=== PATIENT | male | born 1945 | race Caucasian/White ===

== ENCOUNTER → 2025-03-06 | Outpatient (CLI) | payer MEDICARE, SELFPAY ==
--- NOTE | 2025-03-06 14:15 | RAD_ITS ---
PROCEDURE: ORBITS FOR FOREIGN BODY 03/06/2025 REASON FOR EXAM: HX: METAL REMOVAL TO EYES TECHNIQUE: 2 view(s) of the orbits COMPARISON: None FINDINGS: Bones: Unremarkable Sinuses: Unremarkable Additional findings: No radiopaque foreign body seen. RAD/Orbits for Foreign Body IMPRESSION: No radiopaque foreign body is seen. Reading Location: [place] [id number]
--- NOTE | 2025-03-06 14:29 | MRI_ITS ---
PROCEDURE: ORBIT FACE NECK W/WO CONTRAST 03/06/2025 REASON FOR EXAM: OPTIC NERVE ATROPHY LEFT EYE Abnormal eye exam TECHNIQUE: Routine brain MRI without and with intravenous contrast. Dedicated sequences of the orbits also obtained. Multiplanar and multisequence images were obtained. CONTRAST: Clariscan VOLUME: 20 mL IV COMPARISON: None FINDINGS: Brain: Mild cerebral volume loss and chronic periventricular white matter disease. Bilateral mesial temporal lobe cortex and posterior limbic mild FLAIR hyperintensity. Diffusion: No restricted diffusion to suggest acute infarct. Ventricles: Consistent with the overall degree of cerebral volume loss. Major Intracranial Vessels: Major flow voids are maintained. Sinuses: Minimal mucosal thickening. Mastoids: Clear. Bilateral ocular lens replacements. The left optic nerve is mildly smaller in caliber compared to the right. Symmetric appearance of the extra-ocular muscles. No abnormal enhancement. 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 Mild cortical FLAIR hyperintensity in both mesial temporal lobes and posterior limbic areas without associated diffusion weighted hyperintensity or enhancement. Differential diagnosis includes autoimmune ence phalitis, neurosarcoidosis, and steroid responsive encephalopathy among others based on clinical scenario. Reading [facility]
== END | disposition home or self-care (01) ==
PROVIDERS: Referring Provider Ophthalmology; Visit Provider Ophthalmology
DX: H47.20 Unspecified optic atrophy (principal)
CPT/HCPCS: 70030; 70543; A9575

== ENCOUNTER 2025-06-09 16:46 | Emergency (ER) | payer MEDICARE, SELFPAY ==
[2025-06-09] VITALS (7 sets, daily range): BP systolic 125–160; BP diastolic 67–92; PULSE 70–82; RESP 16–20; TEMP 36.1–37.5; O2SAT 96–100; BMI 35.3
--- NOTE | 2025-06-09 17:09 | EX.ED.UPPERE ---
HPI History of Present Illness HPI Narrative: 79-year-old male history of diabetes. [id number]-[id number]-[id number]. Atraumatic right elbow pain since last progressively getting worse. Swollen and red. Tender. Hurts to do range of motion. Denies any prior surgery to this elbow. Denies any recent fall or trauma. No prior history of elbow pain like this before. Chief Complaint: Upper Extremity Injury Informant: patient and spouse/S.O. Onset/Context/Timing Onset: Days Context: Gradual Onset Timing: Continuous Quality of Pain: Sharp Current Severity: Moderate Maximum Severity: Moderate Associated Symptoms Associated Symptoms: Negative for Parasthesia, Weakness or Loss of Funtion Narrative Narrative: 79-year-old male atraumatic right elbow pain and swelling. History of diabetes. Yvnfa-xhhg-rfahaufi. No prior surgery to the elbow. Prior similar symptoms: No Recent Illness/Hospitalization: No PFSH PFSH Home Medications ?Medication ?Instructions ?Recorded ?Last Taken ?Type amino ac-vit [id number] See Rx Instructions PO .COMPLEX 10/29/24 Unknown History tablet insulin aspart U-100 100 unit/mL 1 sliding scale dose subcut 10/29/24 Unknown History (3 mL) subcutaneous pen (Novolog .COMPLEX FlexPen U-100 Insulin aspart) insulin glargine 100 unit/mL (3 35 unit subcut QPM 10/29/24 Unknown History mL) subcutaneous pen (Lantus Solostar U-100 Insulin) levothyroxine 88 mcg tablet 88 mcg PO QDAY 10/29/24 Unknown History lisinopril 10 mg tablet 10 mg PO QDAY 10/29/24 Unknown History saw palmetto 160 1 cap PO QDAY 10/29/24 Unknown History zh-Gvxbie-rsiglnmsr-beta yfilreanqx-[id number]-aijg capsule simvastatin 10 mg tablet 10 mg PO QHS 10/29/24 Unknown History Allergy/AdvReac Type Severity Reaction Status Date / Time No Known Allergies Allergy Verified 06/09/25 16:48 Family History Mother , Passed in 80's No problems noted. Father , 70's Heart disease Myocardial infarction CHF (congestive heart failure) Surgical History History of ankle surgery Social History household members: significant other current occupational status: retired Smoking Status: Never smoker alcohol intake: never caffeine: Yes (On avg 3 cups daily) Type: coffee EXAM Physical Exam Const Vital Signs: 06/09/25 16:47 06/09/25 16:55 Temperature 96.9 F L 96.9 F L Temperature Source Temporal Temporal Pulse Rate 73 73 Respiratory Rate 20 H 20 H Blood Pressure 125/75 H 125/75 H Blood Pressure Mean 91 91 Pulse Ox 99 99 Oxygen Delivery Method Room Air Room Air MDM MDM MDM Narrative Medical decision making narrative: 71-year-old male atraumatic right elbow pain and swelling concern for septic joint versus gout versus other etiologies. No history of trauma. X-ray and labs. Will consult orthopedics. Clean the patient's right elbow off with alcohol swabs and then iodine. I did a lateral approach to his elbow and was unable to obtain any fluid. He tolerated it well. He will be given some morphine for pain. I have orthopedics on page. Dr. Pearce of orthopedics came and evaluated the patient. He believes this is secondary to arthritis. He will follow him up in his office. Ice. Motrin for pain and inflammation. Follow-up with Dr. Castillo. Return if increasing pain, redness or fever. History & Record Review Discussion w/independent historian: Patient and Family Lab Data Attestation: I reviewed the patient's lab results. Lab results narrative: CBC shows a white 11.7. H&H 14 and 42. Platelets 257. Electrolytes show gap 12. BUN and creatinine 21 and 1. Uric acid is 4.7. CRP is 3.6 and sed rate is only 11. Right elbow x-ray shows no acute process. Radiography Diagnostic Testing: Right elbow x-ray, 4 views, interpreted by myself and the radiologist shows chronic changes. Arthritis. No fracture. No dislocation. Possible soft tissue swelling with small effusion. Discharge Plan Triage Chief Complaint: Upper Extremity Injury ED Provider: Doroteo Bermudez Dx/Rx/DC Orders Clinical Impression: Elbow pain, History of diabetes mellitus Instructions: ED Arthralgia, ED Osteoarthritis Prescriptions: No Action lisinopril 10 mg tablet 10 mg PO QDAY levothyroxine 88 mcg tablet 88 mcg PO QDAY simvastatin 10 mg tablet 10 mg PO QHS insulin glargine [Lantus Solostar U-100 Insulin] 100 unit/mL (3 mL) insulin pen 35 unit subcut QPM insulin aspart U-100 [Novolog FlexPen U-100 Insulin] 100 unit/mL (3 mL) insulin pen 1 sliding scale dose subcut .COMPLEX Rx Instructions: 1 sliding scale dose subcutaneously 10-20 Units after meals as needed; amino ac-vit [id number] Tablet See Rx Instructions PO .COMPLEX Rx Instructions: orally Force factor prostate daily; oin-Rjuvol-qwnhp-vmdkl-[id number]-qjtz [id number] mg capsule 1 cap PO QDAY Primary Care Provider: Estrella Flores Referrals: Erick Pearce DO [Med Staff - Active Staff] - As soon as possible Care Physician,No Primary [Non-Staff] - Activity Restrictions/Additional Instructions: Ice your elbow to decrease pain and swelling. Motrin for pain and swelling and Tylenol. Call and follow-up with the orthopedic physician Dr. Grace to have this reevaluated tomorrow or Tuesday. If it is getting a lot worse increasing pain increasing swelling increasing redness or fever just return to the emergency department. The orthopedic physician believes this is secondary to arthritis. Print Language: Luxembourger Disposition Disposition: Home, Self Care
--- NOTE | 2025-06-09 17:25 | RAD_ITS ---
PROCEDURE: ELBOW MIN 3 VIEWS 06/09/2025 REASON FOR EXAM: ATRAUMATIC RIGHT ELBOW PAIN TECHNIQUE: ELBOW MIN 3 VIEWS COMPARISON: None FINDINGS: There are scattered calcifications in the anterior elbow and a questionable small joint effusion. No definite evidence of a displaced fracture, though evaluation is limited due to patient positioning, particularly of the radial head. There is joint space narrowing throughout the elbow. Mild posterior soft tissue swelling. RAD/Elbow min 3 Views IMPRESSION: Limited exam due to patient positioning, without definite displaced fracture. There is a questionable joint effusion with soft tissue swelling. Scattered calcifications may be degenerative or posttraumatic . Consider CT if there is concern for an acute osseous abnormality. Reading Location: [facility]
--- OUTSIDE RECORDS SUMMARY | 2025-06-09 17:39 | XMS RPT_ITS | CCD ---
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 Work Phone: [facility] Comment on above: historic 12-13-2024 10:31-0500 Diastolic blood pressure 84 mm[Hg] Donte Paulino MD Work Phone: [facility] 12-13-2024 10:31-0500 Heart rate 82 /min Donte Paulino MD Work Phone: [facility] 12-13-2024 10:31-0500 SaO2% (BldA) [Mass fraction] 98 % Donte Paulino MD Work Phone: [facility] 12-13-2024 10:31-0500 Systolic blood pressure 136 mm[Hg] Donte Paulino MD Work Phone: [facility] Encounters Encounter Date Encounter Type Care Provider Facility Start: 04-12-2025 ambulatory KAM ARIAS Facility:[facility] Start: 03-06-2025 End: 03-06-2025 ambulatory Angelika Gilman Facility:[facility] Start: 01-09-2025 End: 01-10-2025 Telephone encounter Donte Paulino MD Work Phone: Neurology Comment on above: Medication Problem Start: 12-24-2024 End: 12-24-2024 ambulatory HILARIO RIDDLE Facility:[facility] Start: 12-24-2024 End: 12-24-2024 Patient encounter procedure Hilario Riddle Work Phone: Podiatry Comment on above: Diabetic polyneuropa thy associated with type 2 diabetes mellitus (HCC) (Primary Dx); Hallux valgus of right foot; Callus of foot Start: 12-13-2024 End: 12-13-2024 ambulatory KAM ARIAS Facility:[facility] Start: 12-13-2024 End: 12-13-2024 Patient encounter procedure Donte Paulino MD Work Phone: Neurology Comment on above: Essential tremor (Pr imary Dx) OPENED IN ERROR (Danitza rian Dx) Start: 10-29-2024 ambulatory Erick Elizalde y:BMS Plan of Treatment Date Care Activity Detail Author Start: 12-24-2025 End: 12-24-2025 Patient encounter procedure 12/24/2025 2:30 PM EST Office Visit Podiatry [address] [place], [place] [phone] Hilario Riddle [address] [address] 1 year follow uo Podiatry Comment on above: 1 year follow uo Start: 06-12-2025 End: 06-12-2025 Patient encounter procedure 06/12/2025 12:00 PM EDT Office Visit Neurology [address] [facility] [place] [id number] Donte Paulino MD [address] [facility] [address] [place] [id number] 6 mo f/u Neurology Comment on above: 6 mo f/u Start: 03-14-2025 End: 03-14-2025 Patient encounter procedure 03/14/2025 12:30 PM EDT Office Visit Neurology [address] [address] [place] [id number] Donte Paulino MD [address] [facility] [address] [place] [id number] 3 mo f/u Neurology Comment on above: 3 mo f/u Start: 12-24-2024 End: 12-24-2024 Patient encounter procedure 12/24/2024 3:00 PM EST Office Visit Podiatry [address] [place], [place] [phone] Hilario Riddle [address] [address] New diabetic nail concern Podiatry Comment on above: New diabetic nail co ncern Start: 11-21-2024 Advance Directive Discussion Advance Directive Discussion [facility] Start: 07-22-2024 Covid-19 Vaccine ( season) Covid-19 Vaccine () [facility] Start: 07-22-2024 Influenza vaccination Influenza Vacc ine (#1) [facility] Start: 2021 RSV Vaccine (1 - 1-d ose 75+ series) RSV Vaccine (1 - 1-dose 75+ series) [facility] Start: 1996 Pneumococcal Vaccine : 50+ (1 of 1 - PCV) Pneumococcal Vaccine: 50+ (1 of 1 - PCV) [facility] Start: 1996 Shingrix Vaccine (1 of 2) Shingrix V accine (1 of 2) [facility] Start: 1991 Diabetes Screening Diabetes Screenin g [facility] Start: 1965 Urine microalbumin profile DTaP,Tdap,Td Vaccine (1 - Tdap) [facility] Start: 1964 Anxiety Screening Anxiety Screening [facility] Start: 1964 Depression Screening Depression Scre [facility] Start: 1964 Hepatitis C screening Hepatitis C Vt tierney [facility] Payers Date Payer Category Payer Medicare [employer]NA MEDICARE HU[employer]NA GOLD PLUS [id number] 2024-Present [id number] [place] [id number] O [id number] 2024 Medicare (Managed Care) [employer] G OLD PLUS [id number] 2024 Private Health Insurance [id number] 2024 Private Health Insurance [id number] 2024 Self-pay Unknown [id number] Unknown [id number] Social History Date Type Detail Facility Start: 12-13-2024 Tobacco smoking stat [facility] Never smoked tobacco [facility] Start: 12-13-2024 Tobacco use and exposure Smoke less tobacco non-user [facility] Start: 12-13-2024 Alcoholic beverage intake Life time non-drinker (finding) [facility] Start: 12-13-2024 End: 12-24-2024 History of Social function [facility] Start: 12-13-2024 End: 12-24-2024 Tobacco use panel [facility] National Score (1-10 0), lower number is lower risk 72 [facility] Start: 1945 Sex assigned at Not on file [facility] Medical Equipment Procedure Code Equipment Code Equipment Origin al Text Equipment Identifier Dates Start: 08-16-2024 Clinical Notes 12-13-2024 to 01-10-2025 Telephone Encounter - Donte Paulino MD - 01/10/2025 3:48 PM ESTTelephone Encounter - Donte Paulino MD - 01/10/2025 3:48 PM ESTTelephone Encounter - Lisa Reed - 01/09/2025 3:10 PM EST Note Date & Type Note Facility 01-10-2025 Telephone encounter Note No worries, can y ou try to get the records from his previous provider Dr. Ferrer regarding the injection protocol they used? That way can guide the amount / protocol we submit for authorization for. Thanks [facility] 01-10-2025 Miscellaneous Notes No worries, can y ou try to get the records from his previous provider Dr. Ferrer regarding the injection protocol they used? That way can guide the amount / protocol we submit for authorization for. Thanks Patient called stating Dr Paulino told him to try propranolol (INDERAL) 10 mg tablet instead of Botox injections in his neck for tremors. Patient states he had a reaction to the medication on day four of taking it. Patient states he had diarrhea and vomiting. Patient states he needs to stick with Botox. documented in this encounter [facility] 01-09-2025 Telephone encounter Note Patient called stating Dr Paulino told him to try propranolol (INDERAL) 10 mg tablet instead of Botox injections in his neck for tremors. Patient states he had a reaction to the medication on day four of taking it. Patient states he had diarrhea and vomiting. Patient states he needs to stick with Botox. [facility] 12-24-2024 Note HNO ID: [id number] Author: RISA BARRETT LPN Service: ? Author Type: LICENSED NURSE Type: Progress Notes Filed: 12/24/2024 18:01 Note Text: Per Jose Kerns was provided with powerstep gel inserts, size 11, and instructed/educated in its application, wear, and care. All questions were answered, and patient was able to demonstrate competence with the necessary skills to utilize the above equipment. Risa Barrett LPN [facility] 12-24-2024 History of Presen t illness Narrative Per Jose Kerns was provided with powerstep gel inserts, size 11, and instructed/educated in its application, wear, and care. All questions were answered, and patient was able to demonstrate competence with the necessary skills to utilize the above equipment. Risa Barrett LPN Initial Office Visit Subjective: This 79 year old male presents to clinic for diabetic foot check. Patient admits to being diabetic for 10-15 years now. Patient -B/T/N in feet at this time. Patient -pain in legs when walking. No other pedal complaints at this time. No change in medications or medical history since last visit. PAIN EVALUATION No data found in the last 1 encounters. No results found for: HBA1C PCP: EMILIANO Gonzalez PAST MEDICAL HISTORY Diagnosis Date Cancer (HCC) Diabetes (HCC) Hypothyroidism Current Outpatient Medications Medication Sig simvastatin (ZOCOR) 10 mg tablet Take 10 mg by mouth every evening. lisinopril (ZESTRIL) 10 mg tablet Take 1 tablet by mouth every afternoon. levothyroxine (SYNTHROID) 88 mcg tablet Take 1 tablet by mouth every afternoon. LANTUS SOLOSTAR U-100 INSULIN 100 unit/mL (3 mL) INJECT 30 UNITS BY SUBCUTANEOUS ROUTE ONCE DAILY NOVOLOG FLEXPEN U-100 INSULIN 100 unit/mL (3 mL) INJECT 14 UNITS SUBCUTANEOUSLY DAILY ONETOUCH DELICA PLUS LANCET 30 gauge USE TO TEST BLOOD SUGARS DAILY ACCU-CHEK SOFTCLIX LANCETS ONETOUCH ULTRA TEST test strip USE TO CHECK BLOOD SUGARS THREE TIMES DAILY REMINDER ENTER DIAGNOSIS CODE HERE:E 11.9 ONETOUCH ULTRA TEST test strip USE TO CHECK BLOOD SUGARS THREE TIMES DAILY REMINDER ENTER DIAGNOSIS CODE HERE:E 11.9 BD INSULIN SYRINGE ULTRA-FINE 1 mL 31 gauge x 04/05 propranolol ER (INDERAL LA) 60 mg 24 hr capsule Take 1 capsule by mouth once daily. (Patient not taking: Reported on 12/24/2024) propranolol (INDERAL) 10 mg tablet Take 1 pill twice a day for a week, then 2 pills twice a day for a week, then change to the 60 mg once a day pill thereafter. (Patient not taking: Reported on 12/24/2024) No current facility-administered medications for this visit. ALLERGIES No Known Allergies PAST SURGICAL HISTORY Procedure Laterality Date ANKLE RIGHT OP SURGERY No family history on file. Social History Tobacco Use Smoking status: Never Smokeless tobacco: Never Substance Use Topics Alcohol use: Never Drug use: Never REVIEW OF SYSTEMS GENERAL: Negative for Malaise, significant weight loss, fever RESPIRATORY: Negative for cough, wheezing and shortness of breath CARDIOVASCULAR: Negative for chest pain, leg swelling and palpitations GI: Negative for abdominal discomfort, blood in stools or black stools and change in bowel habits : Negative for dysuria, frequency and incontinence MUSCULOSKELETAL: Negative for joint pain or swelling, back pain, and muscle pain. SKIN: Negative for lesions, rash, and itching. HEMATOLOGY/LYMPHOLOGY Negative for prolonged bleeding, bruising easily, and swollen nodes. ENDOCRINE: Negative for cold or heat intolerance, polyuria, polydipsia and goiter. NEURO: negative The remainder of the review of systems is noncontributory. Objective: [facility] Constitutional: Pt is a well developed 79 year old male who is alert, oriented, cooperative and in no apparent distress. Eyes: Following during examination. No redness or drainage. Respiratory: RR normal and nonlabored. Even breathing. No evidence of distress. Psychology: Patient is engaged during conversation. Normal affect and mood. Does not appear depressed or anxious. Vasc: DP and PT pulses are palpable bilateral. CFT is less than 5 seconds bilateral. Skin temperature is warm to warm proximal to distal bilateral. There is no edema or varicosities noted. Hair growth present. Neuro: Protective sensation is intact to the foot and toes when tested with the 5.07 SWM bilateral. Vibratory sensation is decreased at the hallux bilateral. + Significant neurological defecits. Derm: Inspection and palpation performed. Nails 1-5 b/l are normal in length and thickness. Skin is of normal turgor and texture. Hyperkeratosis noted to right 1st metatarsal. NO ulcerations, scars, verruca or other lesions noted. Ortho: Ankle joint DF is full with the knee extended and full with knee flexed. No pain or crepitus noted. STJ, MTJ ROM are full and free of pain or crepitus. Muscle strength is 5/5 for dorsiflexors, plantarflexors, inverters, everters. Digital deformities include hallux valgus to right foot. Assessment: (E11.42) Diabetic polyneuropathy associated with type 2 diabetes mellitus (HCC) (primary encounter diagnosis) (M20.11) Hallux valgus of right foot (L84) Callus of foot Plan: 1. Patient was seen and evaluated. 2. Patient was instructed on the continued importance of diabetic foot care along with proper diet and keeping their blood sugar under control to prevent complications. Stressed the importance of avoiding barefoot walking, wearing good shoes and inspection of feet Instructions given both oral and written. 3. Patient has bunion to right foot. This does not cause him pain. Would recommend wider shoes, one that accommodate the bunion and perhaps help to provide offloading of the callus sub 1st metatarsal. Due to diabetic neuropathy, history of callus with bunion, I do feel that a diabetic shoe with multidensity inserts to help offload the first metatarsal callus is necessary. Diabetic shoes are necessary for chronic deformity of right foot. 4. Callus sub first metatarsal head right foot was reduced with dremmel. 5. F/u in 1 year or sooner if problems arise. Hilario Riddle DPM documented in this encounter [facility] 12-24-2024 Instructions Hilario Riddle - 12/24/2024 3:24 PM EST Powerstep Original Full length. Can purchase at [facility] [employer] and boots,shoes and more here in [place], [employer] in [place] or [place]. Also can find in [place] in [facility]. Powersteps can also be purchased online, starting around $45.00 If you have a metatarsal or dancer pad for your feet apply the pad directly to the insole so you can interchange between your shoes. Find a shoe with a removable insole and take this out and replace with your powerstep insole. Always bring powersteps with you when shopping for shoes so that you can make sure that everything fits well together Diabetes Foot Care Instructions When you have diabetes, proper foot care is very important. Poor foot care may lead to amputation of a foot or leg. As a person with diabetes, you are more vulnerable to foot problems, because diabetes can damage your nerves and reduce blood flow to your feet. Here are some diabetes foot care tips to follow: Wash and Dry Your Feet Daily Use mild soaps Use warm water Pat your skin dry; do not rub. Thoroughly dry your feet. After washing, use lotion on your feet to prevent cracking. Do not put lotion between your toes. Examine Your Feet Each Day Check the tops and bottoms of your feet. Have someone else look at your feet if you cannot see them. Check for dry, cracked skin. Look for blisters, cuts, scratches, or other sores. Check for redness, increased warmth, or tenderness when touching any area of your feet. Check for ingrown toenails, corns, and calluses. If you get a blister or sore from your shoes, do not pop it. Apply a bandage and wear a different pair of shoes. Take Care of Your Toenails Cut toenails after bathing, when they are soft. Cut toenails straight across and smooth with a nail file. Avoid cutting into the corners of toes. Do not cut cuticles. If you have neuropathy (or decreased sensation in your feet) a rolling down machine operator should always cut your toenails. Be Careful When Exercising Walk and exercise in comfortable shoes. Do not exercise when you have open sores on your feet. Protect Your Feet With Shoes and Socks Never go barefoot. Always protect your feet by wearing shoes or hard-soled slippers or footwear. Avoid shoes with high heels and pointed toes. Avoid shoes that expose your toes or heels (such as open-toed shoes or sandals). These types of shoes increase your risk for injury and potential infections. Try on new footwear with the type of socks you usually wear. Do not wear new shoes for more than an hour at a time. Change your socks daily. Look and feel inside your shoes before putting them on to make sure there are no foreign objects or rough areas. Avoid tight socks. Wear natural-fiber socks (cotton, wool, or a cotton-wool blend). Wear special shoes if your health care provider recommends them. Wear shoes/boots that will protect your feet from various weather conditions (cold, moisture, etc.). Make sure your shoes fit properly. If you have neuropathy (nerve damage), you may not notice that your shoes are too tight. Perform the footwear test described below. Footwear Test Use this simple test to see if your shoes fit correctly: Stand on a piece of paper. (Make sure you are standing and not sitting, because your foot changes shape when you stand.) Trace the outline of your foot. Trace the outline of your shoe. Compare the tracings: Is the shoe too narrow? Is your foot crammed into the shoe? The shoe should be at least 1/2 inch longer than your longest toe and as wide as your foot. Proper Shoe Choices The following types of shoes are best for people with diabetes Closed toes and heels Leather uppers without a seam inside At least 1/2 inch extra space at the end of your longest toe Inside of shoe should be soft with no rough areas Outer sole should be made of stiff material Shoes should be at least as wide as your feet Tips for Foot Care in Diabetes Don't wait to treat a minor foot problem if you have diabetes. Follow your health care provider's guidelines and first aid guidelines. Report foot injuries and infections to your health care provider immediately. Check water temperature with your elbow, not your foot. Do not use a heating pad on your feet. Do not cross your legs. Do not self-treat your corns, calluses, or other foot problems. Go to your health care provider or rolling down machine operator to treat these conditions. documented in this encounter [facility] 12-24-2024 Note HNO ID: [id number] Author: HILARIO RIDDLE, ? Service: ? Author Type: Physician Type: Progress Notes Filed: 12/24/2024 18:01 Note Text: Initial Office Visit Subjective: This 79 year old male presents to clinic for diabetic foot check. Patient admits to being diabetic for 10-15 years now. Patient -B/T/N in feet at this time. Patient -pain in legs when walking. No other pedal complaints at this time. No change in medications or medical history since last visit. PAIN EVALUATION No data found in the last 1 encounters. No results found for: HBA1C PCP: EMILIANO Gonzalez PAST MEDICAL HISTORY Diagnosis Date Cancer (HCC) Diabetes (HCC) Hypothyroidism Current Outpatient Medications Medication Sig simvastatin (ZOCOR) 10 mg tablet Take 10 mg by mouth every evening. lisinopril (ZESTRIL) 10 mg tablet Take 1 tablet by mouth every afternoon. levothyroxine (SYNTHROID) 88 mcg tablet Take 1 tablet by mouth every afternoon. LANTUS SOLOSTAR U-100 INSULIN 100 unit/mL (3 mL) INJECT 30 UNITS BY SUBCUTANEOUS ROUTE ONCE DAILY NOVOLOG FLEXPEN U-100 INSULIN 100 unit/mL (3 mL) INJECT 14 UNITS SUBCUTANEOUSLY DAILY ONETOUCH DELICA PLUS LANCET 30 gauge USE TO TEST BLOOD SUGARS DAILY ACCU-CHEK SOFTCLIX LANCETS ONETOUCH ULTRA TEST test strip USE TO CHECK BLOOD SUGARS THREE TIMES DAILY REMINDER ENTER DIAGNOSIS CODE HERE:E 11.9 ONETOUCH ULTRA TEST test strip USE TO CHECK BLOOD SUGARS THREE TIMES DAILY REMINDER ENTER DIAGNOSIS CODE HERE:E 11.9 BD INSULIN SYRINGE ULTRA-FINE 1 mL 31 gauge x 04/05 propranolol ER (INDERAL LA) 60 mg 24 hr capsule Take 1 capsule by mouth once daily. (Patient not taking: Reported on 12/24/2024) propranolol (INDERAL) 10 mg tablet Take 1 pill twice a day for a week, then 2 pills twice a day for a week, then change to the 60 mg once a day pill thereafter. (Patient not taking: Reported on 12/24/2024) No current facility-administered medications for this visit. ALLERGIES No Known Allergies PAST SURGICAL HISTORY Procedure Laterality Date ANKLE RIGHT OP SURGERY No family history on file. Social History Tobacco Use Smoking status: Never Smokeless tobacco: Never Substance Use Topics Alcohol use: Never Drug use: Never REVIEW OF SYSTEMS GENERAL: Negative for Malaise, significant weight loss, fever RESPIRATORY: Negative for cough, wheezing and shortness of breath CARDIOVASCULAR: Negative for chest pain, leg swelling and palpitations GI: Negative for abdominal discomfort, blood in stools or black stools and change in bowel habits : Negative for dysuria, frequency and incontinence MUSCULOSKELETAL: Negative for joint pain or swelling, back pain, and muscle pain. SKIN: Negative for lesions, rash, and itching. HEMATOLOGY/LYMPHOLOGY Negative for prolonged bleeding, bruising easily, and swollen nodes. ENDOCRINE: Negative for cold or heat intolerance, polyuria, polydipsia and goiter. NEURO: negative The remainder of the review of systems is noncontributory. Objective: [facility] Constitutional: Pt is a well developed 79 year old male who is alert, oriented, cooperative and in no apparent distress. Eyes: Following during examination. No redness or drainage. Respiratory: RR normal and nonlabored. Even breathing. No evidence of distress. Psychology: Patient is engaged during conversation. Normal affect and mood. Does not appear depressed or anxious. Vasc: DP and PT pulses are palpable bilateral. CFT is less than 5 seconds bilateral. Skin temperature is warm to warm proximal to distal bilateral. There is no edema or varicosities noted. Hair growth present. Neuro: Protective sensation is intact to the foot and toes when tested with the 5.07 SWM bilateral. Vibratory sensation is decreased at the hallux bilateral. + Significant neurological defecits. Derm: Inspection and palpation performed. Nails 1-5 b/l are normal in length and thickness. Skin is of normal turgor and texture. Hyperkeratosis noted to right 1st metatarsal. NO ulcerations, scars, verruca or other lesions noted. Ortho: Ankle joint DF is full with the knee extended and full with knee flexed. No pain or crepitus noted. STJ, MTJ ROM are full and free of pain or crepitus. Muscle strength is 5/5 for dorsiflexors, plantarflexors, inverters, everters. Digital deformities include hallux valgus to right foot. Assessment: (E11.42) Diabetic polyneuropathy associated with type 2 diabetes mellitus (HCC) (primary encounter diagnosis) (M20.11) Hallux valgus of right foot (L84) Callus of foot Plan: 1. Patient was seen and evaluated. 2. Patient was instructed on the continued importance of diabetic foot care along with proper diet and keeping their blood sugar under control to prevent complications. Stressed the importance of avoiding barefoot walking, wearing good shoes and inspection of feet Instructions given both oral and written. 3. P (more content not included)... [facility] 12-13-2024 Instructions Donte Paulino MD - 12/13/2024 10:55 AM EST Lets try a medicine called propranolol. Its a beta aayush, which can lower heart rate or blood pressure - watch out for light-headedness or fatigue if these get too low. We will start a low dose twice a day version and then change to a long-acting version after a couple weeks Week 1: Take one 10 mg pill twice a day Week 2: Take 2 pills twice a day Week 3 and on: Take one 60 mg long-acting pill once a day Send me a message after about 6 weeks to see how the propranolol is going - if not benefit and no side effects we coud increase to two of the 60 mg pills to see if that gets you benefit. By that time we should have the Botox records in order to submit for authorization. documented in this encounter [facility] 12-13-2024 Note HNO ID: [id number] Author: DONTE PAULINO MD Service: ? Author Type: Physician Type: Progress Notes Filed: 12/13/2024 11:49 Note Text: NEW PATIENT EVALUATION Subjective HPI Jose Enriquez is a 79 year old right-handed male who presents for evaluation of head tremor. EMILIANO Gonzalez is the PCP. Estimates has had tremor for most of his life. At times seems to have affected speech, but has been more focused his on head/neck. He has received Botox for this in the past with Dr. Ferrer in [place], with him got Botox from 2021 until he moved back May 2024, last Botox 05/22/24. Estimates overall he has gotten Botox for around 10-15 years. Dad and all of dad's brothers, in addition to patient's younger brother with head and hand. No alcohol response. Never tried oral medication for it. No sensory trick. Saw Dr. Ramos in [place] who doesn't do injections, suggested oral medications. No hand tremor. Medications: Current Outpatient Medications Medication Sig Dispense Refill simvastatin (ZOCOR) 10 mg tablet Take 10 mg by mouth every evening. lisinopril (ZESTRIL) 10 mg tablet Take 1 tablet by mouth every afternoon. levothyroxine (SYNTHROID) 88 mcg tablet Take 1 tablet by mouth every afternoon. ONETOUCH DELICA PLUS LANCET 30 gauge USE TO TEST BLOOD SUGARS DAILY ACCU-CHEK SOFTCLIX LANCETS LANTUS SOLOSTAR U-100 INSULIN 100 unit/mL (3 mL) INJECT 30 UNITS BY SUBCUTANEOUS ROUTE ONCE DAILY NOVOLOG FLEXPEN U-100 INSULIN 100 unit/mL (3 mL) INJECT 14 UNITS SUBCUTANEOUSLY DAILY ONETOUCH ULTRA TEST test strip USE TO CHECK BLOOD SUGARS THREE TIMES DAILY REMINDER ENTER DIAGNOSIS CODE HERE:E 11.9 ONETOUCH ULTRA TEST test strip USE TO CHECK BLOOD SUGARS THREE TIMES DAILY REMINDER ENTER DIAGNOSIS CODE HERE:E 11.9 BD INSULIN SYRINGE ULTRA-FINE 1 mL 31 gauge x 04/05 No current facility-administered medications for this visit. ROS ROS: His ROS was positive for that mentioned in the HPI. Otherwise a 10-point ROS was completed and was negative. ALLERGIES No Known Allergies Past Medical History: PAST MEDICAL HISTORY Diagnosis Date Cancer (HCC) Diabetes (HCC) Hypothyroidism Family History: Dad and all of dad's brothers, in addition to patient's younger brother with head and hand. Social History: Social History Tobacco Use Smoking status: Never Smokeless tobacco: Never Substance Use Topics Alcohol use: Never Drug use: Never Drafted out of high school, met his came back and got , then moved back to [place] in 1971, in 2020, met a girl in [place] from high school started visiting and decided to move back. Objective 12/13/24 1045 BP: 136/84 Pulse: 82 SpO2: 98% Weight: 102.1 kg (225 lb 1.4 oz) Physical Examination General Appearance: Well appearing, alert, in no acute distress, well-hydrated, well nourished. Head: Normocephalic Neck: Supple Heart: RRR Peripheral Pulses: Normal Neurologic Examination Mental Status: He is alert. He is fully oriented. Attention is intact. Recent and remote memory is intact. Language shows normal comprehension and fluency. Praxis is normal. Affect is appropriate. Cranial Nerves: Pupils are equal and reactive to light. Extraocular movements show full and smooth pursuits. No nystagmus. Visual ho are full to confrontation. Facial sensation is intact. Facial activation is symmetric. Hearing is intact to conversation. There is no hypomimia. There is no hypophonia. There is no dysarthria. Tongue is midline. Palate elevates symmetrically. Shoulder shrug is normal. Motor: Muscle bulk is normal. Rapid alternating movements are normal. Muscle power is full. Primary head position is fairly neutral, maybe slight left turn. There is a prominent almost rotary head tremor. With head movements in all directions tremor resolves, with head turn either direction slight Y-Y tremor will come out at end. No postural tremor. Uncommonly has a slight pill-rolling movement of left hand that is fleeting / unclear if pathologic. Mild-mod enc point kinetic tremor. Writing normal, spiral trace tremor. Sensory: Intact to fine touch and vibration. Reflex: Biceps and brachioradialis is 2+ bilaterally. Patellar reflex 2+ bilaterally. Achilles 0 bilaterally. Coordination: Finger to nose is smooth without ataxia. Gait/station: Normal DATA REVIEWED Actual films/image/tracing reviewed and summarized as follows: n/a Old records reviewed and summarized as follows: Superficial records are available reviewed Assessment/Plan Assessment AND Plan: Jose Enriquez is a 79 year old right-handed male with a history of DM, tremor, and HTN who presents for evaluation of head tremor. His examination demonstrates head tremor. We discussed his presentation. Explained strong family history of head / hand tremor would suggest Essential Tremor, which might also be suggested by his head tremor not having a clear po (more content not included)... [facility] 12-13-2024 History of Presen t illness Narrative NEW PATIENT EVALUATION Subjective HPI Jose Enriquez is a 79 year old right-handed male who presents for evaluation of head tremor. EMILIANO Gonzalez is the PCP. Estimates has had tremor for most of his life. At times seems to have affected speech, but has been more focused his on head/neck. He has received Botox for this in the past with Dr. Ferrer in [place], with him got Botox from 2021 until he moved back May 2024, last Botox 05/22/24. Estimates overall he has gotten Botox for around 10-15 years. Dad and all of dad's brothers, in addition to patient's younger brother with head and hand. No alcohol response. Never tried oral medication for it. No sensory trick. Saw Dr. Ramos in [place] who doesn't do injections, suggested oral medications. No hand tremor. Medications: Current Outpatient Medications Medication Sig Dispense Refill simvastatin (ZOCOR) 10 mg tablet Take 10 mg by mouth every evening. lisinopril (ZESTRIL) 10 mg tablet Take 1 tablet by mouth every afternoon. levothyroxine (SYNTHROID) 88 mcg tablet Take 1 tablet by mouth every afternoon. [employer] PLUS LANCET 30 gauge USE TO TEST BLOOD SUGARS DAILY ACCU-CHEK SOFTCLIX LANCETS LANTUS SOLOSTAR U-100 INSULIN 100 unit/mL (3 mL) INJECT 30 UNITS BY SUBCUTANEOUS ROUTE ONCE DAILY NOVOLOG FLEXPEN U-100 INSULIN 100 unit/mL (3 mL) INJECT 14 UNITS SUBCUTANEOUSLY DAILY ONETOUCH ULTRA TEST test strip USE TO CHECK BLOOD SUGARS THREE TIMES DAILY REMINDER ENTER DIAGNOSIS CODE HERE:E 11.9 ONETOUCH ULTRA TEST test strip USE TO CHECK BLOOD SUGARS THREE TIMES DAILY REMINDER ENTER DIAGNOSIS CODE HERE:E 11.9 BD INSULIN SYRINGE ULTRA-FINE 1 mL 31 gauge x 04/05 No current facility-administered medications for this visit. ROS ROS: His ROS was positive for that mentioned in the HPI. Otherwise a 10-point ROS was completed and was negative. ALLERGIES No Known Allergies Past Medical History: PAST MEDICAL HISTORY Diagnosis Date Cancer (HCC) Diabetes (HCC) Hypothyroidism Family History: Dad and all of dad's brothers, in addition to patient's younger brother with head and hand. Social History: Social History Tobacco Use Smoking status: Never Smokeless tobacco: Never Substance Use Topics Alcohol use: Never Drug use: Never Drafted out of high school, met his came back and got , then moved back to [place] in 1971, in 2020, met a girl in [place] from high school started visiting and decided to move back. Objective 12/13/24 1045 BP: 136/84 Pulse: 82 SpO2: 98% Weight: 102.1 kg (225 lb 1.4 oz) Physical Examination General Appearance: Well appearing, alert, in no acute distress, well-hydrated, well nourished. Head: Normocephalic Neck: Supple Heart: RRR Peripheral Pulses: Normal Neurologic Examination Mental Status: He is alert. He is fully oriented. Attention is intact. Recent and remote memory is intact. Language shows normal comprehension and fluency. Praxis is normal. Affect is appropriate. Cranial Nerves: Pupils are equal and reactive to light. Extraocular movements show full and smooth pursuits. No nystagmus. Visual ho are full to confrontation. Facial sensation is intact. Facial activation is symmetric. Hearing is intact to conversation. There is no hypomimia. There is no hypophonia. There is no dysarthria. Tongue is midline. Palate elevates symmetrically. Shoulder shrug is normal. Motor: Muscle bulk is normal. Rapid alternating movements are normal. Muscle power is full. Primary head position is fairly neutral, maybe slight left turn. There is a prominent almost rotary head tremor. With head movements in all directions tremor resolves, with head turn either direction slight Y-Y tremor will come out at end. No postural tremor. Uncommonly has a slight pill-rolling movement of left hand that is fleeting / unclear if pathologic. Mild-mod enc point kinetic tremor. Writing normal, spiral trace tremor. Sensory: Intact to fine touch and vibration. Reflex: Biceps and brachioradialis is 2+ bilaterally. Patellar reflex 2+ bilaterally. Achilles 0 bilaterally. Coordination: Finger to nose is smooth without ataxia. Gait/station: Normal DATA REVIEWED Actual films/image/tracing reviewed and summarized as follows: n/a Old records reviewed and summarized as follows: Superficial records are available reviewed Assessment/Plan Assessment & Plan: Jose Enriquez is a 79 year old right-handed male with a history of DM, tremor, and HTN who presents for evaluation of head tremor. His examination demonstrates head tremor. We discussed his presentation. Explained strong family history of head / hand tremor would suggest Essential Tremor, which might also be suggested by his head tremor not having a clear positional component. Botox has been helpful though he doesn't seem to have tried more typical first line oral medication such as propranolol. Will have him start propranolol titrating to 60 mg once a day, discussed side effects. In meantime will try to get records from his Botox treatments from [facility]. He will let me know in interim how 60 mg is doing and if no benefit or side effects would increase to 120 mg, and submit Botox for next visit. He should return to see me in 3 months. Donte Paulino MD [facility] Neurology documented in this encounter [facility] Evaluation note Diagnosis Essential tremor- Primary Essential and other specified forms of tremor [facility] Diagnosis OPENED IN ERROR- Primary To allow closing an encounter opened in error (used in SmartSet) [facility] Diagnosis Diabetic polyneuropathy associated with type 2 diabetes mellitus (HCC)- Primary Hallux valgus of right foot Callus of foot Corns and callosities documented in this encounter [facility] Summary Purpose Family History No Family History Records FoundNo Family History Records Found Advance Directives No Advanced Directives Records FoundNo Advanced Directives Records Found Additional Source Comments Source Comments (unrecognize d section and content) In the event this informatio n is protected by the Federal Confidentiality of Alcohol and Drug Abuse Patient Records regulations: The Federal rules restrict any use of the information to criminally investigate or prosecute any alcohol or drug abuse patient.[facility] the event this information is protected by the Federal Confidentiality of Alcohol and Drug Abuse Patient Records regulations: The Federal rules restrict any use of the information to criminally investigate or prosecute any alcohol or drug abuse patient.[facility] the event this information is protected by the Federal Confidentiality of Alcohol and Drug Abuse Patient Records regulations: The Federal rules restrict any use of the information to criminally investigate or prosecute any alcohol or drug abuse patient.[facility] the event this information is protected by the Federal Confidentiality of Alcohol and Drug Abuse Patient Records regulations: The Federal rules restrict any use of the information to criminally investigate or prosecute any alcohol or drug abuse patient.[facility] Reason for Visit (unrecogniz ed section and content) Reason Comments New Patient Head tremors Reason Comments New Patient Botox for head tremo rs, moved here from [place]. Reason Comments New diabetic foot exam Specialty Diagnoses / Procedures Referred By Guido whiting Referred To Contact Podiatry / PODIATRY Diagnoses New diabetic nail concern Procedures SLIME NEW PODI NAIL CONCERN DIAB Self DelmerHilario medrano [address] [id number] Referral ID Status Reason Start Date Expiration Date V isits Requested Visits Authorized [id number] Pending Review 12/24/2024 03/24/2025 1 1 Reason Comments Medication Problem Care Teams (unrecognized sec tion and content) [employer] S[employer]er Relationship Specialty Start Date End Date Kam Arias CRNP [address] [place] [id number] PCP - General Family Medicine 08/28/24 Rubber Tubing Splicer Relationship Specialty Start Date End Date Kam Arias CRNP [address] [place] [id number] PCP - General Family Medicine 08/28/24 Rubber Tubing Splicer Relationship Specialty Start Date End Date Kam Arias CRNP [address] [place] [id number] PCP - General Family Medicine 08/28/24 Rubber Tubing Splicer Relationship Specialty Start Date End Date Kam Arias CRNP [address] [place] [id number] PCP - General Family Medicine 08/28/24 (unrecognized sect ion and content) No Status Records FoundNo Status Records Found INFORMATION SOURCE (unrecogn ized section and content) DATE CREATED AUTHOR 03/13/2025 [facility] DATE CREATED AUTHOR AUTHOR'S ANIL CARVER 04/18/[address] [facility] FOR RECORDS PERTAINING TO PATIENTS WHO ARE OR HAVE BEEN ENROLLED IN A CHEMICAL DEPENDENCY/SUBSTANCEABUSE PROGRAM, SOME INFORMATION MAY BE OMITTED. This clinical summary was aggregated from multiple sources. Caution should be exercised in using it in the provision of clinical care. This summary normalizes information from multiple sources, and as a consequence, information in this document may materially change the coding, format and clinical context of patient data. In addition, data may be omitted in some cases. CLINICAL DECISIONS SHOULD BE BASED ON THE PRIMARY CLINICAL RECORDS. [employer] provides no warranty or guarantee of the accuracy or completeness of information in this document.
[2025-06-09 17:40] LABS: Hematocrit 42.7 % (40-54); Hemoglobin 14.6 g/dL (13.0-16.5); Immature Granulocytes Count 0.020 X10^3/uL (0.0-0.0); Mean Corp Hgb Conc 34.2 g/dL (32-36); Mean Corpuscular Volume 89.9 fL (80-94); Mean Platelet Vol. 9.5 fl (6.2-12.0); NRBC Flagged by Analyzer 0 % (0-5); Platelet Count 257 K/mm3 (150-450); RBC Distribution Width CV 12.8 % (11.6-14.6); RBC Distribution Width SD 42.3 fl (35.1-43.9); Red Blood Count 4.75 M/mm3 (4.6-6.2); White Blood Count 11.7 K/mm3 (4.4-11.0)
[2025-06-09 18:13] LABS: Anion Gap 12 (5-15); BUN 21 mg/dL (4-19); BUN/Creat Ratio 20.5 RATIO (10-20); CRP 3.64 mg/L (0.0-3.0); Calcium,Total 9.2 mg/dL (7.6-11.0); Carbon Dioxide 21.7 mmol/L (21.0-32.0); Chloride 102 mmol/L (98-108); Estimated Creatinine Clearance 69.53 ml/min (50-250); Glucose 202 mg/dL (70-99); Potassium 4.4 mmol/L (3.3-5.1); Uric Acid 4.7 mg/dL (3.5-7.2)
--- NOTE | 2025-06-09 20:05 | RAD_ITS ---
PROCEDURE: ELBOW 2 VIEWS 06/09/2025 REASON FOR EXAM: REPEAT DUE TO BLURRY IMAGE TECHNIQUE: Lateral view of the right elbow COMPARISON: Right elbow radiographs 06/09/2025 FINDINGS: See below RAD/Elbow 2 Views IMPRESSION: No displaced fracture. There are scattered calcifications throughout the elbow joint which be posttraumatic or degenerative. Probable small joint effusion with posterior soft tissue swelling. Again consider CT if there is concern for an acute osseous abnormality. Reading Location: [facility]
--- NOTE | 2025-06-09 20:43 | CON.PCM_ITS ---
Assessment & Plan Assessment/Plan (1) Degenerative joint disease of elbow, right: (2) Loose body in elbow joint: QUALIFIERS: Laterality: right Qualified Code(s): M24.021 - Loose body in right elbow PLAN: Plan Atraumatic right elbow pain 79-year-old male diabetic no recent infection fevers chills malaise, afebrile on admission essentially normal white blood cell count ESR CRP, dry tap aspirate performed by ER physician, no joint effusion on x-ray or physical exam to warrant second aspiration. 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 Would recommend anti-inflammatory medication for pain control we get an MRI on outpatient basis, we can repeat his labs outpatient as well to make sure there is no trending towards infection but I have low suspicion of this. He will likely need an arthroscopic removal of loose bodies which we can arrange in an outpatient basis. Patient in agreement with plan without any questions. HPI Consult Data Date of Consult: 06/09/25 HPI Narrative HPI Narrative: JOSE ENRIQUEZ, is a 79 M vudtm-godf-hincrfde diabetic no recent infections began having elbow pain on the 17th that worsened this morning when he awoke. Denies any fever chills or malaise no trauma. Was consulted by the emergency room for concern for septic elbow. He did have an attempted aspiration by the emergency room physician which proved to be a dry tap he did have x-rays which demonstrated elbow arthrosis and multiple loose bodies no effusion. PFSH Home Medications ?Medication ?Instructions ?Recorded ?Last Taken ?Type amino ac-vit [id number] See Rx Instructions PO .COMPLEX 10/29/24 Unknown History tablet insulin aspart U-100 100 unit/mL 1 sliding scale dose subcut 10/29/24 Unknown History (3 mL) subcutaneous pen (Novolog .COMPLEX FlexPen U-100 Insulin aspart) insulin glargine 100 unit/mL (3 35 unit subcut QPM 08/14 Unknown History mL) subcutaneous pen (Lantus Solostar U-100 Insulin) levothyroxine 88 mcg tablet 88 mcg PO QDAY 10/29/24 Un known History lisinopril 10 mg tablet 10 mg PO QDAY 10/29/24 Unkno wn History saw palmetto 160 1 cap PO QDAY 10/29/24 Unkno wn History [id number]-Ibifgd-reatypddk-beta [id number]-[id number] capsule simvastatin 10 mg tablet 10 mg PO QHS 10/29/24 Unknow n History Allergy/AdvReac Type Severity Reaction Status Date / Time No Known Allergies Allergy Verified 06/09/25 16:48 Family History Mother , Passed in 80's No problems noted. Father , 70's Heart disease Myocardial infarction CHF (congestive heart failure) Surgical History History of ankle surgery Social History household members: significant other current occupational status: retired Smoking Status: Never smoker alcohol intake: never caffeine: Yes (On avg 3 cups daily) Type: coffee Physical Exam Const alert, oriented x3 and no apparent distress General Appearance: cooperative and comfortable Extremity Extremity Narrative: Right elbow there is no erythema there is no significant soft tissue swelling there is no palpable joint effusion he does prefer to hold the elbow at 90 degrees however I can get him to extend to 45 and the flex to 95 he does feel like there is a block in his motion with attempted further active or passive extension this is when his pain comes on the most he does not have significant pain with short arc movement however he does have pain with supination and pronation as well ranging about 45 degrees supination and pronation. He has an intact extensor tendon insect biceps tendon. There is no sign of collateral elbow instability Lab / Micro Data 06/09/25 17:15 06/09/25 17:15 Labs: Laboratory Results - last 24 hr 06/09/25 17:15: WBC 11.7 H, RBC 4.75, Hgb 14.6, Hct 42.7, MCV 89.9, MCH 30.7, MCHC 34.2, RDW Std Deviation 42.3, RDW Coeff of Kanika 12.8, Plt Count 257, MPV 9.5, Immature Gran % (Auto) 0.200, Neut % (Auto) 80.2 H, Lymph % (Auto) 9.6 L, Stephens % (Auto) 8.3, Eos % (Auto) 1.4, Baso % (Auto) 0.3, Absolute Neuts (auto) 9.4 H, Absolute Lymphs (auto) 1.12, Nucleated RBC % 0, ESR 11, Sodium 135, Potassium 4.4, Chloride 102, Carbon Dioxide 21.7, Anion Gap 12, BUN 21 H, Creatinine 1.03, Estim Creat Clear Calc 69.53, Est GFR (MDRD) Non-Af 74, B UN/Creatinine Ratio 20.5 H, Glucose 202 H, Uric Acid 4.7, Calcium 9.2, C-React Prot Ext Range 3.64 H Imaging Radiology Impression Elbow X-Ray 06/09/25 17:25 IMPRESSION: Limited exam due to patient positioning, without definite displaced fracture. There is a questionable joint effusion with soft tissue swelling. Scattered calcifications may be degenerative or posttraumatic. Consider CT if there is concern for an acute osseous abnormality. Reading Location: [id number] Elbow X-Ray 06/09/25 20:05 IMPRESSION: No displaced fracture. There are scattered calcifications throughout the elbow joint which be posttraumatic or degenerative. Probable small joint effusion with posterior soft tissue swelling. Again consider CT if there is concern for an acute osseous abnormality. Reading Location: [id number]
== END 2025-06-09 21:00 | disposition home or self-care (01) ==
PROVIDERS: Emergency Provider Emergency Medicine; PCP Nurse Practitioner; Referring Provider Emergency Medicine; Visit Provider Emergency Medicine
DX: M19.021 Primary osteoarthritis, right elbow (principal); E11.9 Type 2 diabetes mellitus without complications; Z79.4 Long term (current) use of insulin; M24.021 Loose body in right elbow; Z79.890 Hormone replacement therapy; Z79.899 Other long term (current) drug therapy
CPT/HCPCS: 20605; 73070; 73080; 80048; 84550; 85025; 85652; 86140; 96374; 96375; 99283; A4216; J2405

== ENCOUNTER → 2025-07-16 | Outpatient (CLI) | payer MEDICARE, SELFPAY ==
--- NOTE | 2025-07-16 13:23 | MRI_ITS ---
PROCEDURE: UPPER EXT JOINT ONLY(ROUTINE) 07/16/2025 REASON FOR EXAM: PAIN AND SWELLING TECHNIQUE: T1, T2, PD, UPPER EXT JOINT ONLY(ROUTINE) Multiplanar and multisequence images were obtained without IV contrast administration. 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 There is moderate osteoarthritis at the radiocapitellar articulation. There is normal marrow signal seen in the distal humerus and in the visualized radius and ulna with no evidence of bony contusion or occult injury. The biceps and triceps tendons are normal in appearance. There is a full-thickness, near full width tear of the anterior aspect of the common extensor tendon origin. There is a full-thickness tear of the radial collateral ligament. The lateral ulnar collateral ligament shows edema and attenuation, with laxity, grade 2-3 sprain. There is anterior subluxation of the radius. The common flexor tendon is intact, with increased T2 signal and attenuation, with overlying subcutaneous edema. The brachialis tendon is normal in appearance. Neurovascular bundle and ulnar nerves are normal in appearance. There is a moderate joint effusion. MRI/Upper Ext Joint Only(Routine) IMPRESSION: There is a full-thickness, near full width tear of the anterior aspect of the c ommon extensor tendon origin. There is a full-thickness tear of the radial collateral ligament. The lateral ulnar colla teral ligament shows edema and attenuation, with laxity, grade 2-3 sprain. There is anterior subluxation of the radius. The common flexor tendon is intact, with increased T2 signal and attenuation, w ith overlying subcutaneous edema. There is a moderate joint effusion. Reading Location: [facility]
== END | disposition home or self-care (01) ==
PROVIDERS: PCP Nurse Practitioner; Referring Provider Orthopaedic Surgery; Visit Provider Orthopaedic Surgery
DX: M19.021 Primary osteoarthritis, right elbow (principal); M24.021 Loose body in right elbow
CPT/HCPCS: 73221

== ENCOUNTER 2025-10-11 20:26 | Emergency (ER) | payer MEDICARE, SELFPAY ==
[2025-10-11 20:28] VITALS: BP 119/86; PULSE 71; RESP 20; TEMP 36.1; O2SAT 98; BMI 35.1
--- NOTE | 2025-10-11 22:08 | EDS_ITS ---
HPI History of Present Illness Chief Complaint: Foreign Body Informant: patient Onset/Context/Timing Onset: Hours (2) Context: Sudden Onset Timing: Continuous Quality: Tightness Location: Throat, chest Worsened by: Nothing Relieved by: Nothing Narrative Narrative: Patient presents with esophageal food impaction that began tonight. Patient states he was eating steak. Patient states he felt like something got stuck. Patient states that he used a suction device and was able to remove some of the steak. Patient states that there is still some stuck in his esophagus. Patient states he is unable to swallow his saliva. Patient denies any shortness of breath. Patient states he has had some nausea and vomiting but was unable to vomit all of his steak. Patient denies any fevers or chills. [facility] Medical History Hypercholesterolemia Diabetes mellitus Home Medications ?Medication ?Instructions ?Recorded ?Last Taken ?Type amino ac-vit [id number] See Rx Instructions PO .COMPLEX 10/29/24 Unknown History tablet insulin aspart U-100 100 unit/mL 1 sliding scale dose subcut 10/29/24 Unknown History (3 mL) subcutaneous pen (Novolog .COMPLEX FlexPen U-100 Insulin aspart) insulin glargine 100 unit/mL (3 35 unit subcut QPM 08/14 Unknown History mL) subcutaneous pen (Lantus Solostar U-100 Insulin) levothyroxine 88 mcg tablet 88 mcg PO QDAY 10/29/24 Un known History lisinopril 10 mg tablet 10 mg PO QDAY 10/29/24 Unkno wn History simvastatin 10 mg tablet 10 mg PO QHS 10/29/24 Unknow n History cetirizine 10 mg capsule (Allergy 10 mg PO QDAY PRN Unknown History Relief (cetirizine)) glucosamine [id number]-4-vit E 500 cap PO 06/10/25 Unk nown History mg-400 mg-5 unit capsule melatonin 10 mg capsule 10 mg PO HS PRN 06/10/25 Unk nown History pantoprazole 40 mg tablet,delayed 40 mg PO BID 1 month #60 tabs 10/11/25 Unknown Rx release Allergy/AdvReac Type Severity Reaction Status Date / Time Environmental Allergies: Allergy Other Verified 10/11/25 20:28 Uncoded (hay fever) Family History Mother , Passed in 80's No problems noted. Father , 70's Heart disease Myocardial infarction CHF (congestive heart failure) Surgical History History of ankle surgery Social History household members: significant other current occupational status: retired Smoking Status: Never smoker alcohol intake: never caffeine: Yes (On avg 3 cups daily) Type: coffee ROS ROS ED Constitutional Constitutional ED: Denies chills or fever(s) Eyes Eyes: Denies blurry vision or change in vision ENT ENT ED: Reports rhinorrhea; Denies sore throat Cardiovascular Cardiovascular: Denies chest pain or palpitations Respiratory/Chest Respiratory/Chest: Denies cough or dyspnea Gastrointestinal Gastrointestinal: Reports nausea and vomiting Genitourinary Genitourinary ED: Denies dysuria or hematuria Musculoskeletal Musculoskeletal: Reports back pain; Denies neck pain Integumentary Denies abscess or rash Neurologic Neurologic: Denies headache(s) or weakness Allergic/Immunologic Allergic/Immunologic ED: Denies mouth swelling or urticaria EXAM Physical Exam Const Vital Signs: 10/11/25 20:28 10/11/25 21:47 10/11/25 22:53 Temperature 97 F L 97 F L Temperature Source Temporal Pulse Rate 71 71 Respiratory Rate 20 H 20 H Respiratory Pattern Normal Blood Pressure 119/86 H 119/86 H Blood Pressure Mean 97 Pulse Ox 98 98 Oxygen Delivery Method Room Air 10/11/25 23:19 Temperature 98.5 F Temperature Source Pulse Rate 73 Respiratory Rate 18 Respiratory Pattern Blood Pressure 133/72 H Blood Pressure Mean 92 Pulse Ox 98 Oxygen Delivery Method Positive well nourished and well developed General Appearance ED: well developed and NAD HEENT Reports moist mucous membranes Neck supple and no JVD Resp normal respiratory effort and clear to auscultation bilaterally Cardio regular rate and regular rhythm GI non-tender and non-distended Palpation: soft Neuro oriented x3, CN's II-XII intact bilaterally and no sensory deficits noted Sensorium / Orientation: alert Motor Exam: strength 5/5 throughout MDM MDM MDM Narrative Medical decision making narrative: Patient was given a dose of glucagon here. Case was discussed with Dr. Bentley. He will be in to evaluate the patient and take patient to endoscopy for esophageal food impaction removal. Patient understands and is agreeable with ranjit mayo. All questions were answered. Treatment and Re-Evaluation :: Patient is given a dose of glucagon here. Patient states he felt like he might be getting better. Patient was given some water to drink. Patient states that after drinking the water he still feels like there is something stuck. Patient will be taken to endoscopy for EGD. Patient understood and was agreeable with plan. All questions were answered. Discharge Plan Dx/Rx/DC Orders Clinical Impression: Obstruction of esophagus due to food impaction, Diabetes mellitus Disposition Disposition: Acute Care Hospital [facility] Discharge Date/Time: 10/11/25 23:27
[2025-10-11] MEDS: Glucagon 1 MG/ML Syringe IV (22:09)
--- NOTE | 2025-10-11 22:26 | PCM.HP.STD ---
HPI - General General Date of Admission: 10/11/25 Date of Service: 10/11/25 Chief Complaint: foreign body HPI Narrative JOSE ENRIQUEZ, is a 79 M who presents with esophageal food impaction that began tonight. Patient states he was eating steak. Patient states he felt like something got stuck. Patient states that he used a suction device and was able to remove some of the steak. Patient states that there is still some stuck in his esophagus. Patient states he is unable to swallow his saliva. Patient denies any shortness of breath. Patient states he has had some nausea and vomiting but was unable to vomit all of his steak. Patient denies any fevers or chills. He does not take any medicines for reflux disease. He does have insulin-dependent diabetes. [facility] Medical History Hypercholesterolemia Diabetes mellitus Home Medications ?Medication ?Instructions ?Recorded ?Last Taken ?Type amino ac-vit [id number] See Rx Instructions PO .COMPLEX 10/29/24 Unknown History tablet insulin aspart U-100 100 unit/mL 1 sliding scale dose subcut 10/29/24 Unknown History (3 mL) subcutaneous pen (Novolog .COMPLEX FlexPen U-100 Insulin aspart) insulin glargine 100 unit/mL (3 35 unit subcut QPM 10/29/24 Unknown History mL) subcutaneous pen (Lantus Solostar U-100 Insulin) levothyroxine 88 mcg tablet 88 mcg PO QDAY 10/29/24 Unknown History lisinopril 10 mg tablet 10 mg PO QDAY 10/29/24 Unknown History simvastatin 10 mg tablet 10 mg PO QHS 10/29/24 Unknown History cetirizine 10 mg capsule (Allergy 10 mg PO QDAY PRN 06/10/25 Unknown History Relief (cetirizine)) glucosamine pxpo-[id number]-0-vit E 500 cap PO 06/10/25 Unknown History mg-400 mg-5 unit capsule melatonin 10 mg capsule 10 mg PO HS PRN 06/10/25 Unknown History Allergy/AdvReac Type Severity Reaction Status Date / Time Environmental Allergies: Allergy Other Verified 10/11/25 20:28 Uncoded (hay fever) Family History Mother , Passed in 80's No problems noted. Father , 70's Heart disease Myocardial infarction CHF (congestive heart failure) Surgical History History of ankle surgery Social History household members: significant other current occupational status: retired Smoking Status: Never smoker alcohol intake: never caffeine: Yes (On avg 3 cups daily) Type: coffee ROS Constitutional Constitutional: Denies fatigue, fever(s), poor appetite, weight gain or weight loss Gastrointestinal Gastrointestinal: Denies belching, bloating, change in bowel habits, change in stool character, chewing difficulty, coffee ground emesis, constipation, cramping, diarrhea, dyspepsia, dysphagia, early satiety, excessive flatus, fecal incontinence, heartburn, hematemesis, hematochezia, hemorrhoids, loose stools, melena, nausea, odynophagia, rectal bleeding, tenesmus, vomiting or weight changes Vital Signs Vital Signs Vital Signs: 10/11/25 20:28 10/11/25 21:47 Temperature 97 F L Temperature Source Temporal Pulse Rate 71 Respiratory Rate 20 H Respiratory Pattern Normal Blood Pressure 119/86 H Blood Pressure Mean 97 Pulse Ox 98 Oxygen Delivery Method Room Air Weight Weight: 231 lb 1.6 oz Body Mass Index (BMI) 35.1 Physical Exam Const alert, oriented x3, no apparent distress and healthy appearing General Appearance: cooperative HEENT normocephalic Head and Scalp: normocephalic and atraumatic Face and Sinus: normal facial exam Eyes Sclera: sclera normal Neck full ROM Resp normal respiratory effort Cardio regular rate and regular rhythm GI normal to inspection, nondistended, normoactive bowel sounds, soft to palpation, non-tender and non-distended Percussion: normal to percussion Rectal Exam: deferred Assessment & Plan Assessment/Plan (1) Obstruction of esophagus due to food impaction: PLAN: Patient will undergo nonemergent upper endoscopy. He was explained alternatives, risk and benefits include not withstanding bleeding, infection, sepsis, perforation, need for charge and . He will have an ASA of 3.
--- OUTSIDE RECORDS SUMMARY | 2025-10-11 22:48 | XMS RPT_ITS | CCD ---
Author Organization [facility] Care Team Providers Care Wheat Grower Name Role Phone Mark CUMMINGS, Estrella Primary Care Provider [phone] Mukul MCKEON, Dr. Carney Attending Provider Dr. Angelika Gilman MD Referring Provider Care Physician, No Primary Primary Care Provider Unavailable Dr. Doroteo Bermudez MD Referring Provider Dr. Doroteo Bermudez MD Emergency Provider Mark TEMPLATE CHECKER-C, Estrella Primary Care Provider Dr. Erick Pearce DO Attending Provider Mark TEMPLATE CHECKER-C, Estrella Referring Provider Dr. Doroteo Bermudez MD Attending Provider Dr. Erick Pearce DO Referring Provider Doroteo Bermudez Referring Unavailable Erick Pearce Attending Unavailable Mark, Estrella Primary Care Unavailable Doroteo Bermudez Attending Unavailable Doroteo Bermudez Referring Unavailable Mark, Estrella Primary Care Unavailable Erick Pearce Attending Unavailable Mark, Estrella Primary Care Unavailable Mark, Estrella Referring Unavailable Erick Mendez Attending Unavailable Erick Pearce Attending Unavailable Erick Pearce Referring Unavailable Mark, Estrella Primary Care Unavailable Angelika Gilman Referring Unavailable Care Physician, No Primary Primary Care Unava ilable Angelika Gilman Attending Unavailable Louis MCKEON, Sneha [place]amo Unavailable Erick Pearce Jr, MD Unavailable Mark TEMPLATE CHECKER, Estrella Unavailable HAWA LYNN Attending Unavailable MARK, ESTRELLA Primary Care Unavailable HAWA LYNN Referring Unavailable MARK, ESTRELLA Primary Care Unavailable WEISSFELD, DONTE Attending Unavailable MARK, ESTRELLA Primary Care Unavailable WEISSFELD, DONTE Attending Unavailable MARK, ESTRELLA Primary Care Unavailable TESTRAKE, HILARIO Attending Unavailable SELF Referring Unavailable MARK, ESTRELLA Primary Care Unavailable MARK, ESTRELLA Referring Unavailable MARK, ESTRELLA Primary Care Unavailable WEISSFELD, DONTE Attending Unavailable MARK, ESTRELLA Primary Care Unavailable TESTRAKE, HILARIO Attending Unavailable TESTRAKE, HILARIO Referring Unavailable MARK, ESTRELLA Primary Care Unavailable BABIUCH, HAWA Attending Unavailable KOSMORSKY, MACARIO S Referring Unavailable MARK, ESTRELLA Primary Care Unavailable BABIUCH, HAWA Referring Unavailable MARK, ESTRELLA Primary Care Unavailable WEISSFELD, DONTE Attending Unavailable WEISSFELD, DONTE Referring Unavailable MARK, ESTRELLA Primary Care Unavailable BABIUCH, HAWA Referring Unavailable MARK, ESTRELLA Primary Care Unavailable TESTRAKE, HILARIO Attending Unavailable TESTRAKE, HILARIO Referring Unavailable MARK, ESTRELLA Primary Care Unavailable TESTRAKE, HILARIO Referring Unavailable MARK, ESTRELLA Primary Care Unavailable Allergies Allergy Classification Reported Allergen(s) Allergy Type Date of Onset Reaction(s) Facility (6 sources) Propranolol; Translations: [PROPRANOLOL] Drug Allergy 06-12-20 Diarrhea, Vomiting, Other: See Comments, Gastrointestinal [facility] (1 source) Environmental Allergies: Uncoded; Translations: [Environmental Allergies: Uncoded] Propensity to adverse reactions (disorder) 06-10-20 [facility] Repository Medications Current Medications Medication Drug Class(es) Dates Sig (Normalized) Sig (Original) Amino Ac-Vit N-Jo-Wpknxzgz-Hb9 tablet (3 sources) Start: 10-29-2024 Amino Ac-Vit G-Xq-Gapnpbhk-Hb9 tablet Active 0 PO .COMPLEX October 29, 2024 1:00am orally Force factor prostate daily; benoxinate hydrochloride 4 mg/ml / fluorescein sodium 3 mg/ml ophthalmic solution (2 sources) Diagnostic Dye Start: 07-29-2025 End: 07-30-2025 fluorescein-benoxi eros 0.3-0.4 % 1 drop (FLURESS) Start: 07-29-2025 End: 07-30-2025 1 drop, BOTH EYES, DIRECT ED, Starting on 07/29/25 at 1430, Until Tue07/30/25 at 0229, Administer for applanation tonometry. In the event of a Fluress shortage, administer [place]-Fluor 1 drop into both eyes as directed for applanation tonometry cetirizine hydrochloride 10 mg oral capsule (2 sources) Histamine-1 Receptor Antagonist Start: 06-10-2025 take 1 capsule by mouth once daily as needed Cetirizine (Allergy Relief (Cetirizine)) 10 mg capsule Active 10 mg PO daily as needed June 10, 2025 12:00am Glucosamine Qbij-Vctfd-0-Vit E 500-400-5 mg-mg-unit capsule (2 sources) Start: 06-10-2025 Glucosamine Bcgz-Rkwtj-5-Vit E 500-400-5 mg-mg-unit capsule Active NMA PO June 10, 2025 12:00am 3 ml insulin aspart, human 100 unt/ml pen injector (10 sources) Insulin Analog Start: 10-29-2024 NOVOLOG FLEXPEN U-100 INSULIN 100 unit/mL (3 mL) INJECT 14 UNITS SUBCUTANEOUSLY DAILY 12/04/2024 Active 3 ml insulin glargine 100 unt/ml pen injector (11 sources) Insulin Analog Start: 11-05-2024 LANTUS SOLOSTAR U-100 INSULIN 100 unit/mL (3 mL) INJECT 30 UNITS BY SUBCUTANEOUS ROUTE ONCE DAILY 11/05/2024 Active Start: 10-29-2024 Insulin Glargi ne (Lantus Solostar U-100 Insulin) 100 unit/mL (3 mL) insulin pen Active 35 U SC EVERY EVENING October 29, 2024 1:00am Lantus U-100 Ins ulin 100 unit/mL subcutaneous solution as directed active Serena Ba [facility] iv contrast (will be provided with radiology test) (2 sources) Start: 07-29-2025 End: 07-30-2025 inject 1 dose intravenously once iv contrast (will be provided with radiology test) MRI Brain Inject, intravenously, once for 1 dose.No IV access, insert saline lock prior to beginning of sedation, infusion, injection of imaging exam.Discontinue saline lock post exam. If Pt. has a central line or IVAD, may access for administration according to line specific nursing protocol.Once exam is complete flush line and de-access according to line specific nursing protocol in the MR contrast administration guidelines link 1 each 07/29/2025 07/30/2025 Active Start: 07-29-2025 End: 09-09-2025 iv contrast (will be provide d with radiology test) MRI Orbits Inject, intravenously, once for 1 dose. No IV access, insert saline lock prior to the beginning of sedation, infusion, injection of imaging exam. Discontinue saline lock post exam. If Pt. has a central line or IVAD, may access for administration according to line specific nursing protocol. Once exam is complete flush line and de-access according to line specific nursing protocol in the MR contrast administration guidelines link. 1 each 07/29/2025 07/30/2025 Active levothyroxine sodium 0.088 mg oral tablet (10 sources) l-Thyroxine Start: 10-23-2024 take 1 tablet by mouth once levothyroxine (SYNTHROID) 88 mcg tablet Take 1 tablet by mouth every afternoon. 10/23/2024 Active lisinopril 10 mg oral tablet (11 sources) Angiotensin Converting Enzyme Inhibitor Start: 10-19-2024 take 1 tablet by mouth once lisinopril (ZESTRIL) 10 mg tablet Take 1 tablet by mouth every afternoon. 10/19/2024 Active melatonin 10 mg oral capsule (2 sources) Start: 06-10-2025 take 1 capsule by mouth at bedtime as needed Melatonin 10 mg capsule Active 10 mg PO BEDTIME as needed June 10, 2025 12:00am OTC PRODUCT (4 sources) OTC PRODUCT MELATONIN, ALLERGY RELIEF PROSTATE HEALTH JOINT/ MUSCLE SUPPORT V-8 WITH GARLIC, OLIVE OIL, CAYENNE PEPPER, LEMON, TURMERIC Active phenylephrine hydrochloride 25 mg/ml ophthalmic solution (1 source) alpha-1 Adrenergic Agonist Start: 07-29-2025 End: 07-30-2025 PHENYLephrine 2.5 % 1 drop (AK-DILATE, KONRAD-SYNEPHRINE) 24 hr propranolol hydrochloride 60 mg extended release oral capsule (14 sources) beta-Adrenergic Jumana Start: 12-13-2024 propranolol (INDERAL) 10 mg tablet [...] mouth once daily. 90 capsule 1 12/13/2024 Active simvastatin 10 mg oral tablet (11 sources) HMG-CoA Reductase Inhibitor Start: 10-23-2024 take 1 tablet by mouth once daily in the evening simvastatin (ZOCOR) 10 mg tablet Take 10 mg by mouth every evening. 10/23/2024 Active tropicamide 10 mg/ml ophthalmic solution (1 source) Anticholinergic Start: 07-29-2025 End: 07-30-2025 tropicamide 1 % 1 drop (MYDRIACYL) zinc/Pygeum/pumpkn /saw p/prost (MEN'S SAW PALMETTO FORMULA ORAL) (2 sources) zinc/Pygeum/pump k n/saw p/prost (MEN'S SAW PALMETTO FORMULA ORAL) Take by mouth. Active Completed/Discontinued Medications Medication Drug Class(es) Dates Sig (Normalized) Sig (Original) onabotulinumtoxina 100 unt injection (6 sources) Acetylcholine Release Inhibitor Start: 5 End: 5 inject 1 dose by intramuscular injection every 30 days 300 Units, INTRAMUSCULAR, ONCE (UP TO 30 DAYS AMB), 1 dose, On 08/05/25 at 1500, This record documents the total dose provided to patient. See progress note for specific locations and amounts administered. REFRIGERATE - Pharmaceutical Waste: Lab Pack - Start: 08-05-2025 End: 08-05-2025 onabotulinum toxin type A 30 0 Units injection (BOTOX) Start: 06-12-2025 inject 300 [IU] by i ntramuscular injection every three months onabotulinum toxin type A (BOTOX) 100 unit solr Indications: Cervical dystonia , Tremor Inject up to 300 units IM in office by neurologist every 3 months. 3 each 3 06/12/2025 Active Ekf-Vbsjai-Ycizi-Bsito-B6-Zi nc 406-36-433-90 mg capsule (3 sources) Start: 10-29-2024 End: 06-10-2025 Bau-Fesisa-Adcyd-Bsito-B6-Zi nc 888-58-232-90 mg capsule Discontinued 1 NMA PO daily October 29, 2024 1:00am June 10, 2025 1:40pm Start: 10-29-2024 Dvp-Mynyiu-Zpd ji-Khaii-A9-Zinc 429-08-321-90 mg capsule Active 1 NMA PO daily October 29, 2024 1:00am Problems Active Problems Problem Classification Problem Date Documented Date Episodic/Chronic Acquired foot deformities (5 sources) Hallux valgus (acquired), right foot; Translations: [Hallux valgus (acquired)] Onset: 06-28-2025 12-24-2024 Chronic Blindness and vision defects (4 sources) Visual field defect; Translations: [Unspecified visual field defects] Onset: 10-02-2025 07-29-2025 Episodic Cataract (4 sources) Bilateral pseudophakia; Translations: [Presence of intraocular lens] Onset: 10-02-2025 07-29-2025 Chronic Diabetes mellitus with complications (3 sources) Polyneuropathy due to type 2 diabetes mellitus; Translations: [Type 2 diabetes mellitus with diabetic polyneuropathy] Onset: 06-28-2025 12-24-2024 Chronic Diabetes mellitus without complication (6 sources) Diabetes mellitus type 2 without retinopathy; Translations: [Type 2 diabetes mellitus without complications] Onset: 07-30-2025 07-29-2025 Chronic Osteoarthritis (8 sources) Osteoarthritis of joint of right elbow; Translations: [Primary osteoarthritis, right elbow] Onset: 06-27-2025 06-09-2025 Chronic Other connective tissue disease (1 source) Pain in left toe(s); Translations: [Pain in toe of left foot] Onset: 10-01-2025 Episodic Other connective tissue disease (1 source) Pain in right toe(s); Translations: [Pain in toe of right foot] Onset: 10-01-2025 Episodic Other connective tissue disease (1 source) Posterior tibial tendinitis, unspecified leg; Translations: [Posterior tibial tendon dysfunction] Onset: 10-01-2025 Episodic Other eye disorders (2 sources) Unspecified optic atrophy; 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] Onset: 03-12-2025 Chronic Other eye disorders (3 sources) Optic atrophy; 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] 07-29-2025 Chronic Other hereditary and degenerative nervous system conditions (1 source) Essential tremor; Translations: [Essential tremor] 12-13-2024 Chronic Other hereditary and degenerative nervous system conditions (2 sources) Isolated cervical dystonia; Translations: [Spasmodic torticollis] 06-12-2025 Chronic Other hereditary and degenerative nervous system conditions (1 source) Spasmodic torticollis; 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] Onset: 06-12-2025 Chronic Other nervous system disorders (2 sources) Tremor; Translations: [Tremor, unspecified] 06-12-2025 Episodic Other non-traumatic joint disorders (4 sources) Loose body in elbow joint; Translations: [Loose body in unspecified elbow] 06-09-2025 Chronic Other non-traumatic joint disorders (2 sources) Loose body in right elbow; Translations: [Loose body in right elbow] Onset: 06-10-2025 Chronic Other non-traumatic joint disorders (3 sources) Pain in elbow; Translations: [Pain in unspecified elbow] 06-09-2025 Episodic Other non-traumatic joint disorders (1 source) Pain in right elbow; Translations: [Pain in right elbow] Onset: 06-27-2025 Episodic Other nutritional; endocrine; and metabolic disorders (3 sources) H/O: diabetes mellitus; Translations: [Personal history of other endocrine, nutritional and metabolic disease] 06-09-2025 Episodic Other skin disorders (2 sources) Foot callus; Translations: [Corns and callosities] 12-24-2024 Episodic Unclassified (1 source) OPENED IN ERROR 12-14-2024 Unclassified (2 sources) Loose body of elbow Unclassified (2 sources) Osteoarthritis of right elbow Unclassified (2 sources) M24.021 - Loose body in right elbow,M19.021 - Primary osteoarthritis, right elbow Past or Other Problems Problem Classification Problem Date Documented Da te Episodic/Chronic Mycoses (2 sources) Onychomycosis; Translations: [Tinea unguium] Onset: 06-28-2025 06-28-2025 Episodic Other nervous system disorders (1 source) Tremor, unspecified; Translations: [Tremor] Onset: 06-12-2025 Episodic Other skin disorders (1 source) Corns and callosities; Translations: [Callus of foot] Onset: 06-28-2025 Episodic Results Test Name Value Interpretation Reference Range Facility Hcys SerPl-sCncon 10-02-2025 Homocysteine [Moles/Vol] 8.1 umol/L Normal <15.1 [facility] Comment on above: Order Comment: Speci men Type: BLOOD SPECIMENOrdering Facility: [facility] Address: [address] [place] [address] Performed By: #### 1 [id number] ####[facility] [id number] [place] [address] [place] Prot Ur-ncon 10-02-2025 Protein (U) [Mass/Vol] 328 mg/dL High 0-20 Cl [facility] Comment on above: Order Comment: Speci men Type: URINE SPECIMENOrdering Facility: [facility] Address: [address] [place] [address] Performed By: #### 2 [id number] ####[facility] [id number] [place] [address] [place] Vit B12 SerPl-ncon 025 Cobalamin (Vitamin B12) [Mass/Vol] 733 pg/mL Normal 232-1245 [facility] Comment on above: Order Comment: Speci men Type: BLOOD SPECIMENOrdering Facility: [facility] Address: [address] [place] [address] Performed By: #### 2 [id number] ####[facility] [id number] [address] [place] CNOVon 10-01-2025 CNOV Office Visit ([facility]) JOSE ENRIQUEZ ([id number]) 1945 M Date Time Provider Department 10/01/25 2:15 PM HILARIO RIDDLE [facility] During your visit today, we recorded the following information about you: Hilario Riddle 10/02/2025 11:36 AM Signed Patient presents with: Left Foot - Established Patient, Follow Up, Diabetic Foot Check Right Foot - Established Patient, Follow Up, Diabetic Foot Check Patient presents for follow up diabetic foot/nail care. Also due for diabetic foot exam. Does have intermittent right foot pain to medial foot/arch that occurs when he's on his feet a long time. Also sometimes has tenderness to right lower leg at night. BARBARA 06/28/25 Hilario Riddle 10/02/2025 11:36 AM Signed Last saw pcp: not in chart Subjective: Patient presents to clinic c/o painful toenails. They state that the nails are especially painful with shoe gear and pressure. Patient states that nails 1-5 b/l are painful. Patient admits to being diabetic. No other pedal complaints at this time. Patient states no change in medications or medical history since last visit. Objective: Patient presents to clinic ambulating in eaker Vasc: DP and PT pulses are palpable bilateral. CFT is less than 5 seconds bilateral. Skin temperature is warm to cool proximal to distal bilateral. There is mild edema or varicosities noted. Neuro: Protective sensation is intact to the foot and toes when tested with the 5.07 SWM bilateral. Vibratory sensation is decreased at the hallux IPJ bilateral. The hallux is downgoing bilateral. Derm: Nails 1-5 b/l are painful, discolored-yellow, thick, crumbly, dystrophic and with subungal debris. Skin is of normal turgor, texture and hair growth is absent bilateral. There are no hyperkeratosis, ulcerations, scars, verruca or other lesions noted. Ortho: Muscle strength is 5/5 for all pedal groups tested. Ankle joint DF is decreased with the knee extended with no pain or crepitus noted. 1st MPJ ROM is decreased bilateral. Flatfoot is noted to right foot. Pain is present to medial instep Assessment: (E11.42) Diabetic polyneuropathy associated with type 2 diabetes mellitus (HCC) (primary encounter diagnosis) (B35.1) Onychomycosis (M79.675) Pain in toe of left foot (M79.674) Pain in toe of right foot (M76.829) Posterior tibial tendon dysfunction Plan: Patient was seen and evaluated. Nails 1-5 bilateral were debrided in length and thickness. Patient was instructed on the continued importance of diabetic foot care along with proper diet and keeping their blood sugar under control to prevent complications. Patient has pain along the medial arch of right ankle. Suspect component of posterior tibial tendon dysfunction. Recommend the use of orthotics, good supportive shoes. Will check xrays. Patient is to RTC in 3-4 months. DAI Rene Matthew 10/01/2025 2:34 PM Signed Diabetes Foot Care Instructions When you have [...] (or decreased sensation in your feet) a sub plant manager should always cut your toenails. Be Careful [...] more than an hour at a time. (more content not included)... Normal [facility] XR FOOT 3V AP/LAT/OBL RTon 1 12-01-2024 XR FOOT 3V AP/LAT/OBL RT * * *Final Repo rt* * * DATE OF EXAM: Oct 01 2025 3:09PM [id number] - XR FOOT 3V AP/LAT/OBL RT / PROCEDURE REASON: Posterior tibial tendon dysfunction * * * * Physician Interpretation * * * * TITLE: XR FOOT 3V AP/LAT/OBL RT CLINICAL INDICATION: Posterior tibial tendon dysfunction TECHNIQUE: 3 view radiographic study of the right foot COMPARISON: None FINDINGS: Osseous demineralization. No acute fracture or dislocation identified. Hallux valgus deformity. Mild first metatarsal phalangeal joint osteoarthritis. Scattered joint space narrowing of the interphalangeal joints. Tibiotalar joint osteoarthritis with moderate joint space narrowing and hypertrophic change. Plantar calcaneal enthesophyte. IMPRESSION: No radiographic evidence of acute osseous injury. Degenerative changes as described. Licensed Insurance Agent: [facility] Transcribe Date/Time: Oct 01 2025 3:17P Dictated by : EVITA PERDOMO MD This examination was interpreted and the report reviewed and electronically signed by: EVITA PERDOMO MD on Oct 01 2025 3:23PM EST [id number] CN Normal [facility] MRI ORBIT WO/W IVCONon 08-18 MRI ORBIT WO/W IVCON * * *Final Report* * * DATE OF EXAM: Aug 18 2025 3:25PM [facility] 0311 - MRI ORBIT WO/W IVCON / PROCEDURE REASON: multiple diagnoses * * * * Physician Interpretation * * * * EXAMINATION: MRI ORBIT WO/W IVCON CLINICAL HISTORY: Optic nerve atrophy. Visual field defect. TECHNIQUE: MRI ORBIT protocol without and with contrast including diffusion images. MQ: [id number] Contrast: 10 mL Elucirem IV COMPARISON: None. RESULT: Acute Change: There is no evidence of restricted diffusion to suggest an acute infarct. Hemorrhage: No evidence of prior parenchymal hemorrhage on the provided images. Mass Lesion/ Mass Effect: No evidence of an intracranial mass or extra-axial fluid collection. No abnormal parenchymal or leptomeningeal enhancement is noted following contrast administration. No significant mass effect. Orbits: There is asymmetric volume loss involving intraconal segment of the left optic nerve as well as canalicular segment and cisternal segment. Optic chiasm and right optic nerve are normal in appearance. No mass or pathologic intraorbital enhancement. No sellar/suprasellar mass identified. Extraocular muscles demonstrate normal morphology and signal intensity bilaterally, no mass or pathologic enhancement. Globes are normal in appearance bilaterally. Lacrimal glands are unremarkable. Chronic Change: Scattered patchy areas of increased T2 and FLAIR signal are present in the supratentorial white matter which is a nonspecific finding but likely represents mild chronic microvascular ischemia. Parenchyma: There is mild generalized parenchymal volume loss. The brain parenchyma is otherwise within normal limits of signal intensity and morphology. Ventricles: Ventriculomegaly corresponds to the degree of parenchymal volume loss. Skull Base: Hypothalamic and pituitary region are grossly normal. Craniocervical junction is normal. No significant marrow replacement process. Vasculature: Major intracranial arterial structures, and dural venous sinuses show typical flow void, suggesting patency by spin echo criteria. Other: The visualized paranasal sinuses and mastoid air cells are clear. Extracranial soft tissues are unremarkable. IMPRESSION: Atrophy of the left optic nerve as discussed. No intraorbital mass or pathologic enhancement. No acute intracranial findings. Mild diffuse parenchymal volume loss and mild sequela of chronic microvascular ischemia. No mass or pathologic intracranial enhancement. Licensed Insurance Agent: [employer] Transcribe Date/Time: Aug 18 2025 3:35P Dictated by : KIMBERLY MCDANIEL MD This examination was interpreted and the report reviewed and electronically signed by: KIMBERLY MCDANIEL MD on Aug 18 2025 3:41PM EST [id number] CN Normal [facility] CNOVon 08-05-2025 CNOV Office Visit ([facility]) JOSE ENRIQUEZ ([id number]) 1945 M Date Time Provider Department 08/05/25 1:30 PM DONTE PAULINO [facility] During your visit today, we recorded the following information about you: Pulse Blood pressure Weight 80/minute 124/64 106 kg Donte Paulino MD 08/05/2025 3:00 PM Signed [facility] Neurotoxin Visit Date: August 05, 2025 Name: Jose Enriquez SUBJECTIVE: Historical/ Initial Dose Diagnosis: Cervical dystonia (G24.3) Date of diagnosis: 12/13/24 first visit with me, tremor most of his life getting botulinum toxin for 10-15 years Other treatments hthat ave been tried and failed: Medications propranolol Date of first neurotoxin treatment: 08/05/25 with me, 10-15 years first with outside providers Type of neurotoxin given: Botox: J0585 Frequency of current neurotoxin treatment: 90days Estimated frequency and duration of treatment: continue with current injection interval; will reassess after 1 year Last Injection Notes Date of last Injection: n/a Type of neurotoxin: Botox: J0585 Total amount injected: n/a units Dilution: NS 1:1 Administered with EMG guidance: Yes Degree of effectiveness of last injection: n/a % Latency period of last injection: n/a week(s) Wearing off period of last injection: n/a week(s) Side effects related to last injection: None Current pain symptoms: No Current functional limitations: 2(moderate) and 3(severe) Finally, the following table shows the patient's overall global physical and mental health using the PROMIS scale: PROMIS-10 Flowsheet Row Office Visit from 08/05/2025 in Neurology Office Visit from 06/12/2025 in Neurology Global Physical Health T Score 54.1 50.8 Global Mental Health T Score 53.3 56 0-10 Standard Pain Scale 4 5 *PROMIS-10 scoring scale: mean = 50, over 50 is above average, under 50 is below average Allergies: ALLERGIES Allergen Reactions Propranolol Diarrhea, Vomiting, Other: See Comments Current Medications: Current Outpatient Medications Medication Sig OTC PRODUCT MELATONIN, ALLERGY RELIEF PROSTATE HEALTH JOINT/ MUSCLE SUPPORT V-8 WITH GARLIC, OLIVE OIL, CAYENNE PEPPER, LEMON, TURMERIC onabotulinum toxin type A (BOTOX) 100 unit solr Inject up to 300 units IM in office by neurologist every 3 months. simvastatin (ZOCOR) 10 mg tablet Take 10 [...] (3 mL) INJECT 14 UNITS SUBCUTANEOUSLY DAILY BD INSULIN SYRINGE ULTRA-FINE 1 mL 31 gauge x 5/16 zinc/Pygeum/pumpkn/s aw p/prost (MEN'S SAW PALMETTO FORMULA ORAL) Take by mouth. (Patient not taking: Reported on 08/05/2025) propranolol ER (INDERAL LA) 60 mg 24 hr capsule Take 1 capsule by mouth once daily. (Patient not taking: Reported on 08/05/2025) propranolol (INDERAL) 10 mg tablet Take 1 pill twice a day for a week, then 2 pills twice a day for a week, then change to the 60 mg once a day pill thereafter. (Patient not taking: Reported on 12/24/2024) No current facility-administere d medications for this visit. OBJECTIVE: BP 124/64 (BP Site: Right Arm, BP Position: Sitting, BP Cuff Size: Regular Adult) Pulse 80 Wt 106 kg (233 lb 11 oz) SpO2 96% BMI 35.53 kg/m? Special features on today's visit: multidirectional head tremor ASSESSMENT AND PLAN: Mr. 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 After obtaining informed consent, neurotoxin injections were carried out as outlined below. TIME OUT/ PROCEDURE NOTE: Informed consent Jose Enriquez Medical Record: [id number] Procedure: neurotoxin intramuscular injection The risks, benefits and anticipated outcomes of the procedure, the risks and benefits of the alternatives to the procedure and the roles and tasks of the personnel to be involved were discussed with the patient and the patient consents to the procedure and agrees to proceed. I verify that I personally obtained Jose Enriquez's consent. Donte Paulino MD UNIVERSAL PROTOCOL / SAFETY CHECKLIST Procedure to be Performed: Botulinum toxin for cervical dystonia / head tremor Sign In: A Moment of CARE was completed. Appropriate PPE (Personal Protective Equipment) worn by all providers involved with the procedure. Special equipment not required. Patient/Surrogate Stated/Verified: Patient name, Date of , Relevant allergies, and The intended procedure Time Out: Relevant labs, photos, and/or imaging studies have been (more content not included)... Normal [facility] NISHANT SerPl-cCncon 07-31-2025 Angiotensin converting enzyme [Catalytic activity/Vol] 11 U/L Normal <=52 [facility] Comment on above: Order Comment: Tristan cox Type: BLOOD SPECIMENOrdering Facility: [facility] Address: [address] [place] [address] Result Comment: Kayleen ficially low NISHANT levels may be found for patients taking NISHANT inhibitors or after the administration of gadolinium. This test was developed, and its performance characteristics determined by the [facility] Department of Pathology and Laboratory Medicine. It has not been cleared or approved by the FDA. The [facility] Department of Pathology and Laboratory Medicine is regulated under CLIA as qualified to perform high-complexity testing. This test is used for clinical purposes. It should not be regarded as investigational or for research. Performed By: #### 2 742-5 ####[facility] [id number] [address] STATES OF [facility] BLOOD TB SCREENon 07-31-2025 M. tuberculosis tuberculin stim IFN-g Ql (Bld) Negative Normal [facility] Comment on above: Order Comment: Tristan cox Type: BLOOD SPECIMENOrdering Facility: [facility] Address: [address] [place] [address] Performed By: #### I NFTBP ####[facility] [id number] [place] [id number] [place] MITOGEN MINUS NIL 8.05 IU/mL Normal >=0.50 [facility] Comment on above: Order Comment: Tristan cox Type: BLOOD SPECIMENOrdering Facility: [facility] Address: [address] [place] [address] Performed By: #### I NFTBP ####[facility]CL[facility] [id number] [place] [id number] [place] TB GAMMA INTERPRETATION Infection with M . tuberculosis complex is unlikely. If latent tuberculosis infection is highly suspected, a negative result does not rule out the infection. Specimens from immunocompromised patients and those <5 years of age may show false negative results. In case of a contact investigation, please repeat 8-12 weeks after a known exposure. Normal [facility] Comment on above: Order Comment: Speci men Type: BLOOD SPECIMENOrdering Facility: [facility] Address: [address] [place] [address] Performed By: #### I NFTBP ####[facility] [id number] [place] [address] [place] TB NIL 0.03 IU/mL Normal <=8.00 [facility] Comment on above: Order Comment: Speci men Type: BLOOD SPECIMENOrdering Facility: [facility] Address: [address] [place] [address] Performed By: #### I NFTBP ####[facility] [id number] [place] [address] [place] TB1 AG MINUS NIL 0.02 IU/mL Normal <0.35 [facility] Comment on above: Order Comment: Speci men Type: BLOOD SPECIMENOrdering Facility: [facility] Address: [address] [place] [address] Performed By: #### I NFTBP ####[facility] [id number] [place] [address] [place] TB2 AG MINUS NIL 0.00 IU/mL Normal <0.35 [facility] Comment on above: Order Comment: Speci men Type: BLOOD SPECIMENOrdering Facility: [facility] Address: [address] [place] [address] Performed By: #### I NFTBP ####[facility] [id number] [place] [id number] [place] CBC W Auto Differential pane l (Bld)on 07-31-2025 Basophils (Bld) [#/Vol] 0.03 10*3/uL Normal <0.11 [facility] Comment on above: Order Comment: Speci men Type: BLOOD SPECIMENOrdering Facility: [facility] Address: [address] [place] [address] Performed By: #### 5 7021-8 ####[facility]CL[facility] [id number] [place] [address] [place] Basophils/100 WBC (Bld) 0.5 % Normal [facility] Comment on above: Order Comment: Speci men Type: BLOOD SPECIMENOrdering Facility: [facility] Address: [address] [place] [address] Performed By: #### 5 7021-8 ####[facility]CL[facility] [id number] [place] [address] [place] Differential cell count method Nom (Bld) Auto Normal [facility] Comment on above: Order Comment: Speci men Type: BLOOD SPECIMENOrdering Facility: [facility] Address: [address] [place] [address] Performed By: #### 5 7021-8 ####[facility]CL[facility] [id number] [place] [address] [place] Eosinophils (Bld) [#/Vol] 0.28 10*3/uL Normal <0.46 [facility] Comment on above: Order Comment: Speci men Type: BLOOD SPECIMENOrdering Facility: [facility] Address: [address] [place] [address] Performed By: #### 5 7021-8 ####[facility] [id number] [place] [address] [place] Eosinophils/100 WBC (Bld) 5.0 % Normal [facility] Comment on above: Order Comment: Speci men Type: BLOOD SPECIMENOrdering Facility: [facility] Address: [address] [place] [address] Performed By: #### 5 7021-8 ####[facility] [id number] [place] [address] [place] Erythrocyte distribution width (RBC) [Ratio] 13.4 % Normal 11.5-15.0 [facility] Comment on above: Order Comment: Speci men Type: BLOOD SPECIMENOrdering Facility: [facility] Address: [address] [place] [address] Performed By: #### 5 7021-8 ####[facility]CL[facility] [id number] [place] [address] [place] Hematocrit (Bld) [Volume fraction] 43.5 % Normal 39.0-51.0 [facility] Comment on above: Order Comment: Speci men Type: BLOOD SPECIMENOrdering Facility: [facility] Address: [address] [place] [address] Performed By: #### 5 7021-8 ####[facility]CL[facility] [id number] [place] [address] [place] Hemoglobin (Bld) [Mass/Vol] 14.2 g/dL Normal 13.0-17.0 [facility] Comment on above: Order Comment: Speci men Type: BLOOD SPECIMENOrdering Facility: [facility] Address: [address] [place] [address] Performed By: #### 5 7021-8 ####[facility]CL[facility] [id number] [place] [id number] [place] Immature granulocytes (Bld) [#/Vol] 10*3/uL Normal <0.10 [facility] Comment on above: Order Comment: Speci men Type: BLOOD SPECIMENOrdering Facility: [facility] Address: [address] [place] [address] Performed By: #### 5 7021-8 ####[facility]CL[facility] [id number] [place] [address] [place] Immature granulocytes/100 WBC (Bld) 0.2 % Normal [facility] Comment on above: Order Comment: Speci men Type: BLOOD SPECIMENOrdering Facility: [facility] Address: [address] [place] [address] Performed By: #### 5 7021-8 ####[facility]CL[facility] [id number] [place] [address] [place] Lymphocytes (Bld) [#/Vol] 1.63 10*3/uL Normal 1.00-4.00 [facility] Comment on above: Order Comment: Speci men Type: BLOOD SPECIMENOrdering Facility: [facility] Address: [address] [place] [address] Performed By: #### 5 7021-8 ####[facility] [id number] [place] [address] [place] Lymphocytes/100 WBC (Bld) 28.8 % Normal [facility] Comment on above: Order Comment: Speci men Type: BLOOD SPECIMENOrdering Facility: [facility] Address: [address] [place] [address] Performed By: #### 5 7021-8 ####[facility] [id number] [place] [address] [place] MCH (RBC) [Entitic mass] 29.8 pg Normal 26.0-34.0 [facility] Comment on above: Order Comment: Speci men Type: BLOOD SPECIMENOrdering Facility: [facility] Address: [address] [place] [address] Performed By: #### 5 7021-8 ####[facility]CL[facility] [id number] [place] [address] [place] MCHC (RBC) [Mass/Vol] 32.6 g/dL Normal 30.5-36.0 [facility] Comment on above: Order Comment: Speci men Type: BLOOD SPECIMENOrdering Facility: [facility] Address: [address] [place] [address] Performed By: #### 5 7021-8 ####[facility]CL[facility] [id number] [place] [address] [place] MCV (RBC) [Entitic vol] 91.4 fL Normal 80.0-100.0 [facility] Comment on above: Order Comment: Speci men Type: BLOOD SPECIMENOrdering Facility: [facility] Address: [address] [place] [address] Performed By: #### 5 7021-8 ####[facility] [id number] [place] [address] [place] Monocytes (Bld) [#/Vol] 0.52 10*3/uL Normal <0.87 [facility] Comment on above: Order Comment: Speci men Type: BLOOD SPECIMENOrdering Facility: [facility] Address: [address] [place] [address] Performed By: #### 5 7021-8 ####[facility] [id number] [place] [address] [place] Monocytes/100 WBC (Bld) 9.2 % Normal [facility] Comment on above: Order Comment: Speci men Type: BLOOD SPECIMENOrdering Facility: [facility] Address: [address] [place] [address] Performed By: #### 5 7021-8 ####[facility] [id number] [place] [address] [place] Neutrophils (Bld) [#/Vol] 3.18 10*3/uL Normal 1.45-7.50 [facility] Comment on above: Order Comment: Speci men Type: BLOOD SPECIMENOrdering Facility: [facility] Address: [address] [place] [address] Performed By: #### 5 7021-8 ####[facility]CL[facility] [id number] [place] [address] [place] Neutrophils/100 WBC (Bld) 56.3 % Normal [facility] Comment on above: Order Comment: Speci men Type: BLOOD SPECIMENOrdering Facility: [facility] Address: [address] [place] [address] Performed By: #### 5 7021-8 ####[facility]CL[facility] [id number] [place] [address] [place] Nucleated RBC (Bld) [#/Vol] 10*3/uL Normal <0.01 [facility] Comment on above: Order Comment: Speci men Type: BLOOD SPECIMENOrdering Facility: [facility] Address: [address] [place] [address] Performed By: #### 5 7021-8 ####[facility]CLIA [id number] [place] [address] [place] Nucleated RBC/100 WBC (Bld) [Ratio] 0.0 /100 WBC Normal [facility] Comment on above: Order Comment: Speci men Type: BLOOD SPECIMENOrdering Facility: [facility] Address: [address] [place] [address] Performed By: #### 5 7021-8 ####[facility]CL[facility] [id number] [place] [address] [place] Platelet mean volume (Bld) [Entitic vol] 10.0 fL Normal 9.0-12.7 [facility] Comment on above: Order Comment: Speci men Type: BLOOD SPECIMENOrdering Facility: [facility] Address: [address] [place] [address] Performed By: #### 5 7021-8 ####[facility]CLIA [id number] [place] [address] [place] Platelets (Bld) [#/Vol] 269 10*3/uL Normal 150-400 [facility] Comment on above: Order Comment: Speci men Type: BLOOD SPECIMENOrdering Facility: [facility] Address: [address] [place] [address] Performed By: #### 5 7021-8 ####[facility]CLIA [id number] [address] [address] [place] RBC (Bld) [#/Vol] 4.76 10*6/uL Normal 4.20-6.00 [facility] Comment on above: Order Comment: Speci men Type: BLOOD SPECIMENOrdering Facility: [facility] Address: [address] [place] [address] Performed By: #### 5 7021-8 ####[facility]CLIA [id number] [place] [address] [place] WBC (Bld) [#/Vol] 5.65 10*3/uL Normal 3.70-11.00 [facility] Comment on above: Order Comment: Speci men Type: BLOOD SPECIMENOrdering Facility: [facility] Address: [address] [place] [address] Performed By: #### 5 7021-8 ####[facility] [id number] [address] [address] [place] Comprehensive metabolic 2000 panelon 07-31-2025 Albumin [Mass/Vol] 4.1 g/dL Normal 3.9-4.9 [facility] Comment on above: Order Comment: Speci men Type: BLOOD SPECIMENOrdering Facility: [facility] Address: [address] [place] [address] Performed By: #### 2 4323-8 ####[facility] [id number] [place] [id number] [place] ALP [Catalytic activity/Vol] 69 U/L Normal 38-113 [facility] Comment on above: Order Comment: Speci men Type: BLOOD SPECIMENOrdering Facility: [facility] Address: [address] [place] [id number] Performed By: #### 2 4323-8 ####[facility]CL[facility] [id number] [address] [address] [place] ALT [Catalytic activity/Vol] 14 U/L Normal 10-54 [facility] Comment on above: Order Comment: Speci men Type: BLOOD SPECIMENOrdering Facility: [facility] Address: [address] [place], [place] [address] Performed By: #### 2 4323-8 ####[facility]CL[facility] [id number] [place] [id number] [place] Anion gap [Moles/Vol] 14 mmol/L Normal 8-15 [facility] Comment on above: Order Comment: Speci men Type: BLOOD SPECIMENOrdering Facility: [facility] Address: [address] [place], [place] [address] Performed By: #### 2 4323-8 ####[facility]CL[facility] [id number] [place] [id number] [place] AST [Catalytic activity/Vol] 18 U/L Normal 14-40 [facility] Comment on above: Order Comment: Speci men Type: BLOOD SPECIMENOrdering Facility: [facility] Address: [address] [place], [place] [address] Performed By: #### 2 4323-8 ####[facility]CL[facility] [id number] [address] [address] [place] Bilirubin [Mass/Vol] 0.5 mg/dL Normal 0.2-1.3 [facility] Comment on above: Order Comment: Speci men Type: BLOOD SPECIMENOrdering Facility: [facility] Address: [address] [place], [place] [address] Performed By: #### 2 4323-8 ####[facility]CLIA [id number] [address] [address] [place] Calcium [Mass/Vol] 9.1 mg/dL Normal 8.5-10.2 [facility] Comment on above: Order Comment: Speci men Type: BLOOD SPECIMENOrdering Facility: [facility] Address: [address] [place], [place] [address] Performed By: #### 2 4323-8 ####[facility] [id number] [facility] [place] [id number] [place] Chloride [Moles/Vol] 104 mmol/L Normal 98-107 [facility] Comment on above: Order Comment: Speci men Type: BLOOD SPECIMENOrdering Facility: [facility] Address: [address] [place] [address] Performed By: #### 2 4323-8 ####[facility]CL[facility] [id number] [place] [id number] [place] CO2 [Moles/Vol] 20 mmol/L Low 22-30 [facility] Comment on above: Order Comment: Speci men Type: BLOOD SPECIMENOrdering Facility: [facility] Address: [address] [place], [place] [address] Performed By: #### 2 4323-8 ####[facility]CL[facility] [id number] [place] [id number] [place] Creatinine [Mass/Vol] 0.89 mg/dL Normal 0.73-1.22 [facility] Comment on above: Order Comment: Speci men Type: BLOOD SPECIMENOrdering Facility: [facility] Address: [address] [place], [place] [address] Performed By: #### 2 4323-8 ####[facility]CL[facility] [id number] [place] [id number] [place] eGFRcr SerPlBld CKD-EPI 2020 88 mL/min/1.73m??? Normal >=60 [facility] Comment on above: Order Comment: Speci men Type: BLOOD SPECIMENOrdering Facility: [facility] Address: [address] [place] [address] Result Comment: Lili mated Glomerular Filtration Rate (eGFR) is calculated using the 2020 CKD-EPI creatinine equation. This equation utilizes serum creatinine, sex, and age as parameters. The creatinine assay has traceable calibration to isotope dilution-mass spectrometry. Refer to KDIGO guidelines for clinical interpretation. In patients with unstable renal function, e.g. those with acute kidney injury, the eGFR may not accurately reflect actual GFR. Performed By: #### 2 4323-8 ####[facility]CL[facility] [id number] [place] [address] [place] Glucose [Mass/Vol] 132 mg/dL High 74-99 [facility] Comment on above: Order Comment: Tristan cox Type: BLOOD SPECIMENOrdering Facility: [facility] Address: [address] [place] [address] Result Comment: The [place] [employer] (ADA) provides guidance for cutoff values for fasting glucose and random glucose. The ADA defines fasting as no caloric intake for at least 8 hours. Fasting plasma glucose results between 100 to 125 mg/dL indicate increased risk for diabetes (prediabetes). Fasting plasma glucose results greater than or equal to 126 mg/dL meet the criteria for diagnosis of diabetes. In the absence of unequivocal hyperglycemia, results should be confirmed by repeat testing. In a patient with classic symptoms of hyperglycemia or hyperglycemic crisis, random plasma glucose results greater than or equal to 200 mg/dL meet the criteria for diagnosis of diabetes. Reference: Standards of Medical Care in Diabetes 2016, [place] [employer]. Diabetes Care. 2016.39(Suppl 1). Performed By: #### 2 4323-8 ####[facility] [id number] [place] [address] [place] Potassium [Moles/Vol] 4.8 mmol/L Normal 3.7-5.1 [facility] Comment on above: Order Comment: Tristan cox Type: BLOOD SPECIMENOrdering Facility: [facility] Address: [address] [place] [address] Performed By: #### 2 4323-8 ####[facility]CL[facility] [id number] [place] [id number] [place] Protein [Mass/Vol] 7.1 g/dL Normal 6.3-8.0 [facility] Comment on above: Order Comment: Speci men Type: BLOOD SPECIMENOrdering Facility: [facility] Address: [address] [place] [address] Performed By: #### 2 4323-8 ####[facility]CL[facility] [id number] [place] [address] [place] Sodium [Moles/Vol] 138 mmol/L Normal 136-144 [facility] Comment on above: Order Comment: Speci men Type: BLOOD SPECIMENOrdering Facility: [facility] Address: [address] [place] [address] Performed By: #### 2 4323-8 ####[facility]CL[facility] [id number] [place] [address] [place] Urea nitrogen [Mass/Vol] 13 mg/dL Normal 9-24 [facility] Comment on above: Order Comment: Speci men Type: BLOOD SPECIMENOrdering Facility: [facility] Address: [address] [place] [address] Performed By: #### 2 4323-8 ####[facility]CL[facility] [id number] [place] [address] [place] Reagin and Treponema pallidu m IgG and IgM [Interp]on 07-31-2025 T. pallidum IgG+IgM IA Ql (S) Non-Reactive Normal Nonreactive [facility] Comment on above: Order Comment: Speci men Type: BLOOD SPECIMENOrdering Facility: [facility] Address: [address] [place] [address] Performed By: #### 7 3752-8 ####[facility]CL[facility] [id number] [place] [id number] [place] Reagin+T pallidum IgG+IgM Se rPl-Impon 07-31-2025 Reagin and Treponema pallidum IgG and IgM [Interp] Cannot exclude recent Treponemal infection if specimen collected within 7-10 days after appearance of suspect lesions or 2-3 weeks after an exposure. Clinical correlation is required. Normal [facility] Comment on above: Order Comment: Speci men Type: BLOOD SPECIMENOrdering Facility: [facility] Address: [address] [place] [address] Performed By: #### 7 3752-8 ####[facility]CL[facility] [id number] [place] [address] [place] Relevant diagnostic tests/la boratory data Narrativeon 07-30-2025 Fall risk assessment no [employer] Work Phone: MEDS REVIEW Done [employer] Work Phone: MEDS REVIEWD Medications reviewed without changes [employer] Work Phone: MRI HX of the Right Upper Extremity on 07/16/2025 at [facility] [employer]. Work Phone: XRAY HX of the Right Elbow on 06/09/2025 at [facility] [employer] [facility]. Work Phone: OCT OPTIC NERVE CIRRUS OU (B OTH EYES)on 07-29-2025 [facility] Radiology Study observation (narrative) [facility] Relevant diagnostic tests/la boratory data Narrativeon 07-29-2025 MEDS REVIEWD Medications reviewed without changes [employer] Work Phone: VISUAL FIELD 24-2 OU (BOTH E YES)on 07-29-2025 [facility] Radiology Study observation (narrative) [facility] Magnetic resonance imaging r eportOrdered By: Alex Card on 07-17-2025 Study report [facility] Imaging Services [address] [place] [address] Upper Ext Joint Only(Routine) MR#: [id number] Acct: [id number] Name: ZOEJOSE PERKINS Rep #: [id number] : 1945 M 79 From: Abelino Card MD PCP: TONO Gonzalez Status: REG CLI Study:Upper Ext Joint Only(Routine) Date of Exam: 07/16/25 Exam# [id number] Ordering Dr: Erick Pearce DO PROCEDURE: UPPER EXT JOINT ONLY(ROUTINE) 07/16/2025 REASON FOR EXAM: PAIN AND SWELLING TECHNIQUE: T1, T2, PD, UPPER EXT JOINT ONLY(ROUTINE) Multiplanar and multisequence images were obtained without IV contrast administration. 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 There is moderate osteoarthritis at the radiocapitellar articulation. There is normalmarrow signal seen in the distal humerus and in the visualized radius and ulna with no evidence of bony contusion or occult injury. The biceps and triceps tendons are normal in appearance. There is a full-thickness, near full width tear of the anterior aspect of the common extensor tendon origin. There is a full-thickness tear of the radial collateral ligament. The lateral ulnar collateral ligament shows edema and attenuation, with laxity, grade 2-3 sprain. There is anterior subluxation of the radius. The common flexor tendon is intact, with increased T2 signal and attenuation, with overlying subcutaneous edema. The brachialis tendon is normal in appearance. Neurovascular bundle and ulnar nerves are normal in appearance. There is a moderate joint effusion. MRI/Upper Ext Joint Only(Routine) IMPRESSION: There is a full-thickness, near full width tear of the anterior aspect of the common extensor tendon origin. There is a full-thickness tear of the radial collateral ligament. The lateral ulnar collateral ligament shows edema and attenuation, with laxity, grade 2-3 sprain. There is anterior subluxation of the radius. The common flexor tendon is intact, with increased T2 signal and attenuation, with overlying subcutaneous edema. There is a moderate joint effusion. Reading Location: [facility] CC: TEMPLATE CHECKER-C Estrella Arias; Dr. Erick Pearce DO ~ Licensed Insurance Agent: Signed [facility] Upper Ext Joint Only(Routine )on 07-16-2025 Upper Ext Joint Only(Routine) [facility] Imaging Services [address] [place] [address] Upper Ext Joint Only(Routine) MR#: [id number] Acct: [id number] Name: JOSE ENRIQUEZ Rep #: [id number] : 1945 M 79 From: Alex Card MD PCP: TONO Gonzalez Status: REG CLI Study: Upper Ext Joint Only(Routine) Date of Exam: 0 07/16/25 Exam# [id number] Ordering Dr: Erick Pearce DO PROCEDURE: UPPER EXT JOINT ONLY(ROUTINE) 07/16/2025 REASON FOR EXAM: PAIN AND SWELLING TECHNIQUE: T1, T2, PD, UPPER EXT JOINT ONLY(ROUTINE) Multiplanar and multisequence images were obtained without IV contrast administration. 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 There is moderate osteoarthritis at the radiocapitellar articulation. There is normal marrow signal seen in the distal humerus and in the visualized radius and ulna with no evidence of bony contusion or occult injury. The biceps and triceps tendons are normal in appearance. There is a full-thickness, near full width tear of the anterior aspect of the common extensor tendon origin. There is a full-thickness tear of the radial collateral ligament. The lateral ulnar collateral ligament shows edema and attenuation, with laxity, grade 2-3 sprain. There is anterior subluxation of the radius. The common flexor tendon is intact, with increased T2 signal and attenuation, with overlying subcutaneous edema. The brachialis tendon is normal in appearance. Neurovascular bundle and ulnar nerves are normal in appearance. There is a moderate joint effusion. MRI/Upper Ext Joint Only(Routine) IMPRESSION: There is a full-thickness, near full width tear of the anterior aspect of the common extensor tendon origin. There is a full-thickness tear of the radial collateral ligament. The lateral ulnar collateral ligament shows edema and attenuation, with laxity, grade 2-3 sprain. There is anterior subluxation of the radius. The common flexor tendon is intact, with increased T2 signal and attenuation, with overlying subcutaneous edema. There is a moderate joint effusion. Reading Location: [facility] CC: TONO Arias; Dr. Erick Pearce DO Licensed Insurance Agent: Signed Normal [facility] CNOVon 06-28-2025 CNOV Office Visit (PODIWS) ZOEJOSE Vilma ([id number]) 1945 M Date Time Provider Department 06/28/25 3:40 PM HILARIO RIDDLE PODIWS During your visit today, we recorded the following information about you: Cristal Faria RN 06/30/2025 10:17 AM Signed AMB ROOMING INTAKE FLOWSHEET DATA Patient presents with: Left Foot - Established Patient Right Foot - Established Patient Hilario Riddle 06/28/2025 3:34 PM Signed Diabetes Foot Care Instructions When you have [...] (or decreased sensation in your feet) a sub plant manager should always cut your toenails. Be Careful [...] Go to your health care provider or sub plant manager to treat these conditions. DelmerDora mcraeew 06/30/2025 10:17 AM Signed Initial Office Visit Subjective: This 79 year old male presents to clinic for diabetic foot check. Patient admits to being diabetic for multiple years now. Patient +B/T/N in feet at this time. Patient -pain in legs when walking. No other pedal complaints at this time. No change in medications or medical history since last visit. PAIN EVALUATION No data found in the last 1 encounters. No results found for: HBA1C PCP: EMILIANO Gonzalez PAST MEDICAL HISTORY[1] CURRENT MEDICATIONS[2] ALLERGIES[3] PAST SURGICAL HISTORY Procedure Late (more content not included)... Normal [facility] CNOVon 06-12-2025 CNOV Office Visit ([facility]) JOSE ENRIQUEZ ([id number]) 1945 M Date Time Provider Department 06/12/25 12:00 PM DONTE PAULINO [facility] During your visit today, we recorded the following information about you: Pulse Blood pressure Weight Height 65/minute 117/71 105.8 kg 1.727 m Donte Paulino MD 06/12/2025 10:46 PM Signed FOLLOW UP NOTE Subjective Jose Enriquez is a 79 year old male who presents for follow up. CC: Head tremor Summary of prior care: 11/2024 right-handed male with a history of DM, tremor, and HTN who presents for evaluation of head tremor. His examination demonstrates head tremor. Explained strong family history of head / [...] get records from his Botox treatments from [facility]. He will let me know in interim how 60 mg is doing and if no benefit or side effects would increase to 120 mg, and submit Botox for next visit. HPI Current Issues - Had bad reaction to propranolol, diarrhea - Tremor unchanged - Interested in resuming botox Current Outpatient Medications Medication Sig Dispense Refill OTC PRODUCT MELATONIN, ALLERGY RELIEF PROSTATE HEALTH JOINT/ MUSCLE SUPPORT V-8 WITH GARLIC, OLIVE OIL, CAYENNE PEPPER, LEMON, TURMERIC simvastatin (ZOCOR) 10 mg tablet Take 10 [...] (3 mL) INJECT 14 UNITS SUBCUTANEOUSLY DAILY BD INSULIN SYRINGE ULTRA-FINE 1 mL 31 gauge x /16 propranolol ER (INDERAL LA) 60 mg 24 hr capsule Take 1 capsule by mouth once daily. (Patient not taking: Reported on 12/24/2024) 90 capsule 1 propranolol (INDERAL) 10 mg tablet Take 1 pill twice a day for a week, then 2 pills twice a day for a week, then change to the 60 mg once a day pill thereafter. (Patient not taking: Reported on 12/24/2024) 42 tablet 0 No current facility-administere d medications for this visit. Objective OBJECTIVE 06/12/25 1203 BP: 117/71 BP Site: Left Arm BP Position: Sitting BP Cuff Size: Large Adult Pulse: 65 SpO2: 95% Weight: 105.8 kg (233 lb 4 oz) Height: 172.7 cm (5' 8) General: General Appearance: Well appearing, alert, in no acute distress, well-hydrated, well nourished. Head: Normocephalic Neck: Supple Heart: RRR Neurologic Exam: Mental Status: He is alert. He is fully oriented. Attention is intact. Memory is intact. Language shows normal comprehension and fluency. Affect is appropriate. Cranial Nerves: Extraocular movements show full and smooth pursuits. No nystagmus. Visual ho are full to confrontation. Facial activation is symmetric. Hearing is intact to conversation. There is no hypomimia. There is no hypophonia. There is no dysarthria. Tongue is midline. Palate elevates symmetrically. Shoulder shrug is normal. Normal neutral head position, maybe very slight right head tilt. Baseline tremor sort of rotary Y-Y. No tremor with tilt to left or right. With turn either direction initially no tremor then after a few seconds Y-Y tremor emerges. a Motor: Muscle bulk is normal. Rapid alternating movements are normal. Muscle power is full. Coordination: Finger to nose is smooth without ataxia. Gait/station: Normal DATA REVIEW Actual films/image/tracing reviewed and summarized as follows: n/a Old records reviewed and summarized as follows: Assessment/Plan ASSESSMENT AND PLAN: Jose Enriquez is a 79 year old male with a history of DM, tremor, and HTN who presents for follow up of head tremor. His examination demonstrates head tremor. 1. 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 Normal [facility] Orthopedic Visit Reporton Orthopedic Visit Report [facility] [address] [place] [address] [id number] OFFICE VISIT Date of Service: 06/10/25 MR#: [id number] Acct: [id number] Name: JOSE ENRIQUEZ Rep #: [id number] : 1945 Provider: Dr. Erick del castillo DO Age/Sex: 79/M Location: [facility] Status: Signed Intake Vital Signs 06/09/25 16:47 06/10/25 08:58 06/10/25 13:36 Height 5 ft 8 in 5 ft 8 in 5 ft 8 in Weight: 230 lb 4 oz BMI 34.9 Intake Visit Reasons: RIGHT ELBOW Chief Complaint: Right Elbow - ER Follow-Up Accompanied by: Self Is patient in pain?: Yes Pain scale (1-10): 3 Allergies Environmental Allergies: Uncoded (hay fever) Allergy (Verified 06/10/25 13:37) Other Medications ???Medication ???Instructions ???Recorded ???Confirmed ???Type amino ac-vit [id number] See Rx Instructions PO .COMPLEX 06/10/25 History tablet insulin aspart U-100 100 unit/mL 1 sliding scale dose subcut 06/10/25 History (3 mL) subcutaneous pen (Novolog .COMPLEX FlexPen U-100 Insulin aspart) insulin glargine 100 unit/mL (3 35 unit subcut QPM 10/29/24 History mL) subcutaneous pen (Lantus Solostar U-100 Insulin) levothyroxine 88 mcg tablet 88 mcg PO QDAY 10/29/24 06/10/25 H istory lisinopril 10 mg tablet 10 mg PO QDAY 10/29/24 06/10/25 Hi story simvastatin 10 mg tablet 10 mg PO QHS 10/29/24 06/10/25 His tory cetirizine 10 mg capsule (Allergy 10 mg PO QDAY PRN 06/10/25 History Relief (cetirizine)) glucosamine atoi-sfybx-9-vit E 500 cap PO 06/10/25 06/10/25 History mg-400 mg-5 unit capsule melatonin 10 mg capsule 10 mg PO HS PRN 06/10/25 06/10/25 History Have you fallen in the past year?: No PFSH Surgical History History of ankle surgery Family History Mother , Passed in 80's No problems noted. Father , 70's Heart disease Myocardial infarction CHF (congestive heart failure) Social History household members: significant other current occupational status: retired Smoking Status: Never smoker alcohol intake: never caffeine: Yes (On avg 3 cups daily) Type: coffee HPI RIGHT ELBOW Details: This documentation accurately reflects the service provided and the decisions made by me, Dr. Erick Pearce, DO 06/10/25 0939. Part of today???s visit was documented by Balbina Machuca ATC, acting as scribe. JOSE ENRIQUEZ is a 79 year old M here today for ER follow-up I did see him yesterday. Patient states the elbow feels a lot better than it did yesterday in the ER. He has been taking 2 Motrin twice a day for the pain. He states he has been applying ice to the area. He denies any pain or numbness into the hand or fingers. Patient is RHD. He denies any fevers, chills or feelings of sickness. there is no elbow redness and swelling is not very severe and not any worse today. 06/09/2025 ER consult: 79 M icxjb-vlqu-cchdgfst diabetic no recent infections began having elbow pain on the 17 that worsened this morning when he awoke. Denies any fever chills or malaise no trauma. Was consulted by the emergency room for concern for septic elbow. He did have an attempted aspiration by the emergency room physician which proved to be a dry tap he did have x-rays which demonstrated elbow arthrosis and multiple loose bodies no effusion. Plan:Atraumatic right elbow pain 79-year-old male diabetic no recent infection fevers chills malaise, afebrile on admission essentially normal white blood cell count ESR CRP, dry tap aspirate performed by ER physician, no joint effusion on x-ray or physical exam to warrant second aspiration. 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 Would recommend anti- inflammatory medication for pain control we get an MRI on outpatient basis, we can repeat his labs outpatient as well to make sure there is no trending towards infection but I have low suspicion of this. He will likely need an arthroscopic removal of loose bodies which we can arrange in an outpatient basis. Patient in agreement with plan without any questions. Ortho Exam General General: Yes no acute distress and Yes well groomed Neurologic: Yes alert and Yes oriented x3 Psychologic: Yes reasonable and appropriate Right Elbow Skin/Wound: Yes CDI, No eccymosis, No erythema and Yes Swelling (minimal) Sensation: Radial: I, Ulnar: I and Median: I ELBOW: lacking 40 EXT FLEX 95 No erythema no joint effusion intact biceps triceps tendon no collateral instability nonpainful arc of motion only pain at the terminal ends of mo (more content not included)... Normal [facility] Absolute lymphocyte countOrd ered By: Doroeto Bermudez on 06-09-2025 Lymphocytes Auto (Unsp spec) [#/Vol] 1.12 10*3/uL 0.83-4.51 [facility] Absolute neutrophil countOrd ered By: Doroteo Bermudez on 06-09-2025 Neutrophils (Bld) [#/Vol] 9.4 10*3/uL High 2.0-7.7 [facility] Anion gap in Serum or Plasma Ordered By: Doroteo Bermudez on 06-09-2025 Anion gap [Moles/Vol] 12 mmol/L 5-15 [facility] Automated lymphocyte count a s percentage of total leukocytesOrdered By: Doroteo Bermudez on 06-09-2025 Lymphocytes/100 WBC Auto (Unsp spec) 9.6 % Low 19-41 [facility] BUN/creatinine ratioOrdered By: Doroteo Bermudez on 06-09-2025 Urea nitrogen/Creatinine [Mass ratio] 20.5 mg/mg High 09-09 [facility] Basic Metabolic Profile (BMP )on 06-09-2025 BUN/CRE 20.5 RATIO High 09-09 [facility] Comment on above: Performed By: #### L 501.1400, L501.6710, L500.2500, L101.9900, L100.0100 #### [facility] [address] [place], [address] Calcium [Mass/Vol] 9.2 mg/dL Normal 7.6-11.0 [facility] Comment on above: Performed By: #### L 501.1400, L501.6710, L500.2500, L101.9900, L100.0100 #### [facility] [address] [place], [address] Chloride [Moles/Vol] 102 mmol/L Normal 98-108 [facility] Comment on above: Performed By: #### L 501.1400, L501.6710, L500.2500, L101.9900, L100.0100 #### [facility] [address] [place], [address] CO2 [Moles/Vol] 21.7 mmol/L Normal 21.0-32.0 [facility] Comment on above: Performed By: #### L 501.1400, L501.6710, L500.2500, L101.9900, L100.0100 #### [facility] [address] [place], [address] Creatinine [Mass/Vol] 1.03 mg/dL Normal 0.70-1.20 [facility] Comment on above: Performed By: #### L 501.1400, L501.6710, L500.2500, L101.9900, L100.0100 #### [facility] [address] [place], [address] ECRCL 69.53 ml/min Normal 50-250 [facility] Comment on above: Performed By: #### L 501.1400, L501.6710, L500.2500, L101.9900, L100.0100 #### [facility] [address] [place], [address] GAP 12 Normal 5-15 [facility] Comment on above: Performed By: #### L 501.1400, L501.6710, L500.2500, L101.9900, L100.0100 #### [facility] [address] [place], [address] GFR/1.73 sq M.predicted among non-blacks MDRD (S/P/Bld) [Vol rate/Area] 74 mL/min/{1.73_m2} Normal >60 [facility] Comment on above: Result Comment: mL/m in/1.73m2 CKD-EPI Creatinine Equation (2020) Performed By: #### L 501.1400, L501.6710, L500.2500, L101.9900, L100.0100 #### [facility] [address] [place], [address] Glucose [Mass/Vol] 202 mg/dL High 70-99 [facility] Comment on above: Performed By: #### L 501.1400, L501.6710, L500.2500, L101.9900, L100.0100 #### [facility] [address] [place], [address] Potassium [Moles/Vol] 4.4 mmol/L Normal 3.3-5.1 [facility] Comment on above: Performed By: #### L 501.1400, L501.6710, L500.2500, L101.9900, L100.0100 #### [facility] [address] [place], [address] Sodium [Moles/Vol] 135 mmol/L Normal 133-145 [facility] Comment on above: Performed By: #### L 501.1400, L501.6710, L500.2500, L101.9900, L100.0100 #### [facility] [address] [place], [address] Urea nitrogen [Mass/Vol] 21 mg/dL High 4-19 [facility] Comment on above: Performed By: #### L 501.1400, L501.6710, L500.2500, L101.9900, L100.0100 #### [facility] [address] [place], [address] Basophil percentageOrdered B y: Doroteo Bermudez on 06-09-2024 Basophils/100 WBC (Bld) 0.3 % 0-1 [facility] CBC W/Diff, Automatedon 05-22-2024 Absolute Lymph 1.12 X10 3/uL Normal 0.83-4.51 [facility] Comment on above: Performed By: #### L 501.1400, L501.6710, L500.2500, L101.9900, L100.0100 #### [facility] [address] [place], [address] Absolute Neut 9.4 X10 3/uL High 2.0-7.7 [facility] Comment on above: Performed By: #### L 501.1400, L501.6710, L500.2500, L101.9900, L100.0100 #### [facility] [address] [place], [address] Basophils/100 WBC (Bld) 0.3 % Normal 0-1 [facility] Comment on above: Performed By: #### L 501.1400, L501.6710, L500.2500, L101.9900, L100.0100 #### [facility] [address] [place], [address] Eosinophils/100 WBC (Bld) 1.4 % Normal 0-5 [facility] Comment on above: Performed By: #### L 501.1400, L501.6710, L500.2500, L101.9900, L100.0100 #### [facility] [address] [place], [address] Erythrocyte distribution width (RBC) [Ratio] 12.8 % Normal 11.6-14.6 [facility] Comment on above: Performed By: #### L 501.1400, L501.6710, L500.2500, L101.9900, L100.0100 #### [facility] [address] [place], [address] Hematocrit (Bld) [Volume fraction] 42.7 % Normal 40-54 [facility] Comment on above: Performed By: #### L 501.1400, L501.6710, L500.2500, L101.9900, L100.0100 #### [facility] [address] [place], [address] Hemoglobin (Bld) [Mass/Vol] 14.6 g/dL Normal 13.0-16.5 [facility] Comment on above: Performed By: #### L 501.1400, L501.6710, L500.2500, L101.9900, L100.0100 #### [facility] [address] [place], [address] IG% 0.200 Normal 0.0-0.9 [facility] Comment on above: Result Comment: IG% - Immature Granulocytes (promyelocytes, myelocytes and metamyelocytes) > 1% indicates that a LEFT SHIFT is Present. Performed By: #### L 501.1400, L501.6710, L500.2500, L101.9900, L100.0100 #### [facility] [address] [place], [address] Lymphocytes/100 WBC (Bld) 9.6 % Low 19-41 [facility] Comment on above: Performed By: #### L 501.1400, L501.6710, L500.2500, L101.9900, L100.0100 #### [facility] [address] [place], [address] MCH (RBC) [Entitic mass] 30.7 pg Normal 27.0-32.0 [facility] Comment on above: Performed By: #### L 501.1400, L501.6710, L500.2500, L101.9900, L100.0100 #### [facility] [address] [place], [address] MCHC (RBC) [Mass/Vol] 34.2 g/dL Normal 32-36 [facility] Comment on above: Performed By: #### L 501.1400, L501.6710, L500.2500, L101.9900, L100.0100 #### [facility] [address] [place], [address] MCV (RBC) [Entitic vol] 89.9 fL Normal 80-94 [facility] Comment on above: Performed By: #### L 501.1400, L501.6710, L500.2500, L101.9900, L100.0100 #### [facility] [address] [place], [address] Monocytes/100 WBC (Bld) 8.3 % Normal 0-10 [facility] Comment on above: Performed By: #### L 501.1400, L501.6710, L500.2500, L101.9900, L100.0100 #### [facility] [address] [place], [address] Neutrophils/100 WBC (Bld) 80.2 % High 47-70 [facility] Comment on above: Performed By: #### L 501.1400, L501.6710, L500.2500, L101.9900, L100.0100 #### [facility] [address] [place], [address] Nucleated RBC (Bld) [#/Vol] 0 10*3/uL Normal 0-5 [facility] Comment on above: Performed By: #### L 501.1400, L501.6710, L500.2500, L101.9900, L100.0100 #### [facility] [address] [place], [address] Platelet mean volume (Bld) [Entitic vol] 9.5 fL Normal 6.2-12.0 [facility] Comment on above: Performed By: #### L 501.1400, L501.6710, L500.2500, L101.9900, L100.0100 #### [facility] [address] [place], [address] Platelets (Bld) [#/Vol] 257 10*3/uL Normal 150-450 [facility] Comment on above: Performed By: #### L 501.1400, L501.6710, L500.2500, L101.9900, L100.0100 #### [facility] [address] [place], [address] RBC (Bld) [#/Vol] 4.75 10*6/uL Normal 4.6-6.2 [facility] Comment on above: Performed By: #### L 501.1400, L501.6710, L500.2500, L101.9900, L100.0100 #### [facility] [address] [place], [address] RDW SD 42.3 fl Normal 35.1-43.9 [facility] Comment on above: Performed By: #### L 501.1400, L501.6710, L500.2500, L101.9900, L100.0100 #### [facility] [address] [place], [address] WBC (Bld) [#/Vol] 11.7 10*3/uL High 4.4-11.0 [facility] Comment on above: Performed By: #### L 501.1400, L501.6710, L500.2500, L101.9900, L100.0100 #### [facility] [address] [place], [address] CRPon 06-09-2025 C-REACTIVE PROT 3.64 mg/L High 0.0-3.0 [facility] Comment on above: Performed By: #### L 501.1400, L501.6710, L500.2500, L101.9900, L100.0100 #### [facility] [address] [place], [place], [id number] Carbon dioxide, total [Moles /volume] in Central venous bloodOrdered By: Doroteo Bermudez on 06-09-2025 CO2 [Moles/Vol] 21.7 mmol/L 21.0-32.0 [facility] Chloride assayOrdered By: Chidi Bermudez on 06-09-2025 Chloride [Moles/Vol] 102 mmol/L 98-108 [facility] Elbow 2 Viewson 06-09-2025 Elbow 2 Views [facility] Imaging Services [address] [place], [place] [id number] Elbow 2 Views MR#: [id number] Acct: [id number] Name: JOSE ENRIQUEZ Rep #: [id number] : 1945 M 79 From: Edinson Fishman MD PCP: BRAD GonzalezC Status: REG ER Study: Elbow 2 Views Date of Exam: 06/09/25 Exam# [id number] Ordering Dr: Erick Pearce DO PROCEDURE: ELBOW 2 VIEWS 06/09/2025 REASON FOR EXAM: REPEAT DUE TO BLURRY IMAGE TECHNIQUE: Lateral view of the right elbow COMPARISON: Right elbow radiographs 06/09/2025 FINDINGS: See below RAD/Elbow 2 Views IMPRESSION: No displaced fracture. There are scattered calcifications throughout the elbow joint which be posttraumatic or degenerative. Probable small joint effusion with posterior soft tissue swelling. Again consider CT if there is concern for an acute osseous abnormality. Reading Location: [id number] CC: FIDENCIO-C Estrella Arias; Dr. Erick Pearce DO Licensed Insurance Agent: Signed Normal [facility] Elbow min 3 Viewson 06-09-20 Elbow min 3 Views [facility] Imaging Services [address] [place], [place] [id number] Elbow min 3 Views MR#: [id number] Acct: [id number] Name: JOSE ENRIQUEZ Rep #: [id number] : 1945 M 79 From: Edinson Fishman MD PCP: TONO Gonzalez Status: REG ER Study: Elbow min 3 Views Date of Exam: 06/09/25 Exam# [id number] Ordering Dr: Doroteo Bermudez MD PROCEDURE: ELBOW MIN 3 VIEWS 06/09/2025 REASON FOR EXAM: ATRAUMATIC RIGHT ELBOW PAIN TECHNIQUE: ELBOW MIN 3 VIEWS COMPARISON: None FINDINGS: There are scattered calcifications in the anterior elbow and a questionable small joint effusion. No definite evidence of a displaced fracture, though evaluation is limited due to patient positioning, particularly of the radial head. There is joint space narrowing throughout the elbow. Mild posterior soft tissue swelling. RAD/Elbow min 3 Views IMPRESSION: Limited exam due to patient positioning, without definite displaced fracture. There is a questionable joint effusion with soft tissue swelling. Scattered calcifications may be degenerative or posttraumatic. Consider CT if there is concern for an acute osseous abnormality. Reading Location: [id number] CC: TEMPLATE CHECKER-C Estrella Arias; Dr. Doroteo Bermudez MD Licensed Insurance Agent: Signed Normal [facility] Emergency Department Summary on 06-09-2025 Emergency Department Summary [facility] Medical Records Department [address] [place] [address] Emergency Department Summary 06/09/25 MR#: [id number] Acct: [id number] Name: JOSE ENRIQUEZ Rep #: [id number] : 1945 79 From: Doroteo Bermudez MD PCP: TONO Gonzalez Status:REG ER Location: ED HPI History of Present Illness HPI Narrative: 79-year-old male history of diabetes. Qkvid-vaou-nvbcmfwy. Atraumatic right elbow pain since last progressively getting worse. Swollen and red. Tender. Hurts to do range of motion. Denies any prior surgery to this elbow. Denies any recent fall or trauma. No prior history of elbow pain like this before. Chief Complaint: Upper Extremity Injury Informant: patient and spouse/S.O. Onset/Context/Timing Onset: Days Context: Gradual Onset Timing: Continuous Quality of Pain: Sharp Current Severity: Moderate Maximum Severity: Moderate Associated Symptoms Associated Symptoms: Negative for Parasthesia, Weakness or Loss of Funtion Narrative Narrative: 79-year-old male atraumatic right elbow pain and swelling. History of diabetes. Xturd-gptp-kungsqye. No prior surgery to the elbow. Prior similar symptoms: No Recent Illness/Hospitalizat ion: No PFSH PFSH Home Medications ???Medication ???Instructions ???Recorded ???Last Taken ???Type amino ac-vit Z-Sc-vsrjlnrg-hb9 See Rx Instructions PO .COMPLEX Unknown History tablet insulin aspart U-100 100 unit/mL 1 sliding scale dose subcut Unknown History (3 mL) subcutaneous pen (Novolog .COMPLEX FlexPen U-100 Insulin aspart) insulin glargine 100 unit/mL (3 35 unit subcut QPM 10/29/24 Unknow n History mL) subcutaneous pen (Lantus Solostar U-100 Insulin) levothyroxine 88 mcg tablet 88 mcg PO QDAY 10/29/24 Unknown Hi story lisinopril 10 mg tablet 10 mg PO QDAY 10/29/24 Unknown His tory saw palmetto 160 1 cap PO QDAY 10/29/24 Unknown His tory jp-Uwzxae-pfsdobjpu- beta pzjzogncyv-K0-mybr capsule simvastatin 10 mg tablet 10 mg PO QHS 10/29/24 Unknown Hist ory Allergy/AdvReac Type Severity Reaction Status Date / Time No Known Allergies Allergy Verified 06/09/25 16:48 Family History Mother , Passed in 80's No problems noted. Father , 70's Heart disease Myocardial infarction CHF (congestive heart failure) Surgical History History of ankle surgery Social History household members: significant other current occupational status: retired Smoking Status: Never smoker alcohol intake: never caffeine: Yes (On avg 3 cups daily) Type: coffee EXAM Physical Exam Const Vital Signs: 06/09/25 16:47 06/09/25 16:55 Temperature 96.9 F L 96.9 F L Temperature Source Temporal Temporal Pulse Rate 73 73 Respiratory Rate 20 H 20 H Blood Pressure 125/75 H 125/75 H Blood Pressure Mean 91 91 Pulse Ox 99 99 Oxygen Delivery Method Room Air Room Air MDM MDM MDM Narrative Medical decision making narrative: 71-year-old male atraumatic right elbow pain and swelling concern for septic joint versus gout versus other etiologies. No history of trauma. X-ray and labs. Will consult orthopedics. Clean the patient's right elbow off with alcohol swabs and then iodine. I did a lateral approach to his elbow and was unable to obtain any fluid. He tolerated it well. He will be given some morphine for pain. I have orthopedics on page. Dr. Pearce of orthopedics came and evaluated the patient. He believes this is secondary to arthritis. He will follow him up in his office. Ice. Motrin for pain and inflammation. Follow-up with Dr. Castillo. Return if increasing pain, redness or fever. History Record Review Discussion w/independent historian: Patient and Family Lab Data Attestation: I reviewed the patient's lab results. Lab results narrative: CBC shows a white 11.7. H H 14 and 42. Platelets 257. Electrolytes show gap 12. BUN and creatinine 21 and 1. Uric acid is 4.7. CRP is 3.6 and sed rate is only 11. Right elbow x-ray shows no acute process. Radiography Diagnostic Testing: Right elbow x-ray, 4 views, interpreted by myself and the radiologist shows chronic changes. Arthritis. No fracture. No dislocation. Possible soft tissue swelling with small effusion. Discharge Plan Triage Chief Complaint: Upper Extremity Injury ED Provider: Doroteo Bermudez Dx/Rx/DC Orders Clinical Impression: Elbow pain, History of diabetes mellitus Instructions: ED Arthralgia, ED Osteoarthritis Prescriptions: No Action lisinopril 10 mg tablet 10 mg PO QDAY levothyroxine 88 mcg tablet 88 mcg PO QDAY simvastatin 10 mg tablet 10 mg PO QHS insulin (more content not included)... Normal [facility] Eosinophil percentageOrdered By: Doroteo Bermudez on 06-09-2025 Eosinophils/100 WBC (Bld) 1.4 % 0-5 [facility] Erythrocyte Sed Rateon 06-09 SED RATE 11 mm/hr Normal 0-20 [facility] Comment on above: Performed By: #### L 501.1400, L501.6710, L500.2500, L101.9900, L100.0100 #### [facility] Laboratory [address] [place], [address] Erythrocyte distribution wid th ratioOrdered By: Doroteo Bermudez on 06-09-2025 Erythrocyte distribution width (RBC) [Ratio] 12.8 % 11.6-14.6 [facility] Erythrocyte distribution wid th standard deviationOrdered By: Doroteo Bermudez on 06-09-2025 Erythrocyte distribution width (RBC) [Ratio] 42.3 fl 35.1-43.9 [facility] Erythrocyte sedimentation ra teOrdered By: Doroteo Bermudez on 06-09-2025 ESR (Bld) [Velocity] 11 mm/h 0- [facility] Glomerular filtration rate ( GFR) estimation/1.73 sq m using serum, plasma, or whole bOrdered By: Doroteo Bermudez on 06-09-2025 GFR/1.73 sq M.predicted among non-blacks MDRD (S/P/Bld) [Vol rate/Area] 74 mL/min/{1.73_m2} >60 [facility] Comment on above: mL/min/1.73m2 CKD-EP I Creatinine Equation (2020) Hematocrit Auto (Bld) [Volum e fraction]Ordered By: Doroteo Bermudez on 06-09-2025 Hematocrit (Bld) [Volume fraction] 42.7 % 40-54 [facility] Hemoglobin measurementOrdere d By: Doroteo Bermudez on 06-09-2025 Hemoglobin (Bld) [Mass/Vol] 14.6 g/dL 13.0-16.5 [facility] Immature granulocytes/100 WB C Auto (Bld)Ordered By: Doroteo Bermudez on 06-09-2025 Immature granulocytes/100 WBC (Bld) 0.200 % 0.0-0.9 [facility] Comment on above: IG% - Immature Granu locytes (promyelocytes, myelocytes and metamyelocytes) > 1% indicates that a LEFT SHIFT is Present. MCV (mean corpuscular volume ) determinationOrdered By: Doroteo Bermudez on 06-09-2025 MCV (RBC) [Entitic vol] 89.9 fL 80-94 [facility] Mean corpuscular hemoglobin (MCH) determinationOrdered By: Doroteo Bermudez on 06-09-2025 MCH (RBC) [Entitic mass] 30.7 pg 27.0-32.0 [facility] Mean corpuscular hemoglobin concentration (MCHC) determinationOrdered By: Doroteo Bermudez on 06-09-2025 MCHC (RBC) [Mass/Vol] 34.2 g/dL 32-36 [facility] Mean platelet volume determi nationOrdered By: Doroteo Bermudez on 06-09-2025 Platelet mean volume (Bld) [Entitic vol] 9.5 fL 6.2-12.0 [facility] Monocyte percentageOrdered B y: Doroteo Bermudez on 06-09-2025 Monocytes/100 WBC (Bld) 8.3 % 0-10 [facility] Neutrophil percentageOrdered By: Doroteo Bermudez on 06-09-2025 Neutrophils/100 WBC (Bld) 80.2 % High 47-70 [facility] Nucleated red blood cell per centageOrdered By: Doroteo Bermudez on 06-09-2025 Nucleated RBC/100 WBC (Bld) [Ratio] 0 % 0-5 [facility] Platelet countOrdered By: Chidi Bermudez on 06-09-2025 Platelets (Bld) [#/Vol] 257 10*3/uL 150-450 [facility] Potassium measurement (mass/ volume)Ordered By: Doroteo Bermudez on 06-09-2025 Potassium (Unsp spec) [Mass/Vol] 4.4 mmol/L 3.3-5.1 [facility] RBC Auto (Bld) [#/Vol]Ordere d By: Doroteo Bermudez on 06-09-2025 RBC (Bld) [#/Vol] 4.75 10*6/uL 4.6-6.2 [facility] Serum creatinine measurement (mass/volume)Ordered By: Doroteo Bermudez on 06-09-2025 Creatinine [Mass/Vol] 1.03 mg/dL 0.70-1.20 [facility] Serum glucose measurement (m ass/volume)Ordered By: Doroteo Bermudez on 06-09-2025 Glucose [Mass/Vol] 202 mg/dL High 70-99 [facility] Serum or plasma C reactive p rotein measurement (mass/volume)Ordered By: Doroteo Bermudez on 06-09-2025 CRP [Mass/Vol] 3.64 mg/L High 0.0-3.0 [facility] Serum or plasma calcium andrei urement (mass/volume)Ordered By: Doroteo Bermudez on 06-09-2025 Calcium [Mass/Vol] 9.2 mg/dL 7.6-11.0 [facility] Serum or plasma urea nitroge n measurement (mass/volume)Ordered By: Doroteo Bermudez on 06-09-2025 Urea nitrogen [Mass/Vol] 21 mg/dL High 4-19 [facility] Serum or plasma uric acid me asurement (mass/volume)Ordered By: Doroteo Bermudez on 06-09-2025 Urate [Mass/Vol] 4.7 mg/dL 3.5-7.2 [facility] Comment on above: The drugs N-Acetylcy steine and Metamizole may falsely depress this assay. Sodium levelOrdered By: Doroteo Bermudez on 06-09-2025 Sodium [Moles/Vol] 135 mmol/L 133-145 [facility] Uric Acidon 06-09-2025 URIC 4.7 mg/dL Normal 3.5-7.2 [facility] Comment on above: Result Comment: The drugs N-Acetylcysteine and Metamizole may falsely depress this assay. Performed By: #### L 501.1400, L501.6710, L500.2500, L101.9900, L100.0100 #### [facility] Laboratory [facility] [place], [address] White blood cell (WBC) count Ordered By: Doroteo Bermudez on 06-09-2025 WBC (Bld) [#/Vol] 11.7 10*3/uL High 4.4-11.0 [facility] XR KNEE 3V AP/LAT/MERCHANT R Ton 04-12-2025 [...] KNEE PAIN AND SWE[facility] TECHNIQUE: XR KNEE 3V AP/LAT/MERCHANT RT COMPARISON: None FINDINGS: Advanced patellofemoral and mild to moderate medial and lateral joint compartment osteoarthritis. No fracture or dislocation. No joint effusion. Fairly similar in degree degenerative change is noted in the left knee. IMPRESSION: Osteoarthrosis Licensed Insurance Agent: PSCGerri Transcribe Date/Time: Apr 17 2025 8:52A Dictated by : JEFF ROMAN MD This examination was interpreted and the report reviewed and electronically signed by: JEFF ROMAN MD on Apr 17 2025 8:53AM EST [id number] Normal [facility] Orbit Face Neck W/WO Contras ton 03-06-2025 Orbit Face Neck W/WO Contrast [facility] Imaging Services [address] [place] [address] Orbit Face Neck W/WO Contrast MR#: [id number] Acct: [id number] Name: JOSE ENRIQUEZ Rep #: [id number] : 1945 M 79 From: Mickey Hendrix MD PCP: Care Physician,No Primary Status: REG CLI Study: Orbit Face Neck W/WO Contrast Date of Exam: Exam# [id number] Ordering Dr: Angelika Gilman MD PROCEDURE: ORBIT [...] others based on clinical scenario. Reading Location: [facility] CC: Dr. Angelika Gilman MD; No Primary Care Physician Licensed Insurance Agent: Signed [facility] Orbits for Foreign Bodyon Orbits for Foreign Body [facility] Imaging Services [address] [place] [address] Orbits for Foreign Body MR#: [id number] Acct: [id number] Name: JOSE ENRIQUEZ Rep #: [id number] : 1945 M 79 From: Eduard villalba MD PCP: Care Physician,No Primary Status: REG CLI Study: Orbits for Foreign Body Date of Exam: 03/06/25 Exam# [id number] Ordering Dr: Angelika Gilman MD PROCEDURE: ORBITS FOR FOREIGN BODY 03/06/2025 REASON FOR EXAM: HX: METAL REMOVAL TO EYES TECHNIQUE: 2 view(s) of the orbits COMPARISON: None FINDINGS: Bones: Unremarkable Sinuses: Unremarkable Additional findings: No radiopaque foreign body seen. RAD/Orbits for Foreign Body IMPRESSION: No radiopaque foreign body is seen. Reading Location: [place] [address] CC: Dr. Angelika Gilman MD; No Primary Care Physician Licensed Insurance Agent: Signed [facility] Telephone ([facility]) JOSE ENRIQUEZ ([id number]) 1945 M Date Time Provider Department 01/09/25 [...] PM Signed This staff called dr. Ferrer [phone] and left a message for office to call us with the information Jia Musa MA 01/15/2025 11:00 AM Signed This staff faxed request to [phone] , dr. Ferrer office and request notes to be faxed to us to [phone] Allergies As of Date: 01/09/2025 (No Known [...] Encounter Status:Closed by DONTE PAULINO on 01/10/25 [facility] CNOVon 12-24-2024 CNOV Office Visit (PODIWS) JOSE ENRIQUEZ ([id number]) 1945 M Date Time Provider Department 12/24/24 [...] ULTRA-FINE 1 mL 31 gauge x 5/16 propranolol ER (INDERAL LA) 60 mg 24 [...] not taking: Reported on 12/24/2024) No current facility-administere d medications for this visit. ALLERGIES No Known [...] SKIN: Negative for lesions, rash, and itching. HEMATOLOGY/LYMPHOLOG Y Negative for prolonged bleeding, bruising easily, and swollen nodes. ENDOCRINE: Negative for cold or heat intolerance, polyuria, polydipsia and goiter. NEURO: negative The remainder of the review of systems is noncontributory. Objective: Patient presents to clinic ambulating in [facility] Constitutional: Pt is a well developed 79 [...] blood suga (more content not included)... Normal [facility] CNOVon 12-13-2024 CNOV Office Visit (YIF) ZOEJOSE Esparza ([id number]) 1945 M Date Time Provider Department 12/13/24 10:30 AM DONTE PAULINO During your visit today, we recorded the following information about you: Pulse Blood pressure Weight 82/minute 136/84 102.1 kg Dotne Paulino MD 12/13/2024 11:49 AM Signed NEW PATIENT EVALUATION Subjective HPI Jose Enriquez is a 79 year old right-handed male who presents for evaluation of head tremor. EMILIANO Gonzalez is the PCP. Estimates has had tremor for most of his life. At times seems to have affected speech, but has been more focused his on head/neck. He has received Botox for this in the past with Dr. Ferrer in [place], with him got Botox from 2021 until he moved back May 2024, last Botox 05/22/24. Estimates overall he has gotten Botox for around 10-15 years. Dad and all of dad's brothers, in addition to patient's younger brother with head and hand. No alcohol response. Never tried oral medication for it. No sensory trick. Saw Dr. Ramos in [place] who doesn't do injections, suggested oral medications. [...] mL 31 gauge x 04/05 No current facility-administere d medications for this visit. ROS ROS: His [...] and got , then moved back to [place] in 1971, in 2020, met a girl in [place] from high school started visiting and decided [...] for evaluati (more content not included)... Normal [facility] CNOV Office Visit (NEUSTF) ZOEJOSE Esparza ([id number]) 1945 M Date Time Provider Department 12/13/24 9:30 AM DONTE PAULINO During your visit today, we recorded the following information about you: Pulse Blood pressure Weight 82/minute 136/84 102.1 kg Allergies As of Date: 12/13/2024 (No Known Allergies) Date Reviewed: 12/13/2024 Reviewed by: Lizabeth Chow LPN - Fully Assessed Reason for Visit: New Patient [172] Cmt: Botox for head tremors, moved here from [place]. Primary Visit Diagnosis:OPENED IN ERROR Prescriptions as [...] Of Date: 12/13/2024 (None) Encounter Status:Closed by DONTE PAULNIO on 12/14/24 Normal [facility] Neurology Visit Reporton Neurology Visit Report [facility] [address] [place] [address] OFFICE VISIT Date of Service: 10/29/24 MR#: [id number] Acct: [id number] Name: JOSE ENRIQUEZ Rep #: [id number] : 1945 Provider: Dr. Erick marmolejo MD Age/Sex: 78/M [place] [facility] Status: Signed HPI HPI Chief Complaint: Establish Care Details: The patient is a 78- year-old right handed male who presents to [facility]. He was referred 07/30/2024 by [facility] primary care by MELISA Arias for benign [...] Reasons: DIABETES MELLITUS Chief Complaint: Establish Care Batching Operator Required: No Accompanied by: Self Allergies No Known Allergies Allergy (Unverified 10/29/24 13:35) Medications ???Medication ???Instructions ???Recorded ???Confirmed ???Type amino ac-vit P-Pl-inwwqzbe-hb9 See Rx Instructions PO .COMPLEX 10/29/24 10/29/24 [...] 1 cap PO QDAY 10/29/24 10/29/24 History ff-Oafwjb-uvrsnlksj- beta qudellbvhw-W9-slsr capsule simvastatin 10 mg tablet 10 mg PO QHS 10/29/24 10/29/24 History Have you fallen in the past year?: No Nurse's Note: Also takes prevagen daily (not in MAR) drinks V8 with garlic, olive oil, cayenne pepper, lemon, ground turmeric every other day. Had botox injections 05/22/2024 in [place] for tremors. [facility] Surgical History (Updated 10/29/24 @ 13:49 by [...] Charge 10/30/24 1230 Date [facility]: Date (if applicable) CC: Normal [facility] Vital Signs Date Time Vital Sign Value Performing Clinician Facility 08-05-2025 13:20-0400 Body mass index (BMI) [Ratio] 35.53 kg/m2 Donte Paulino MD Work Phone: [facility] 08-05-2025 13:20-040 Body weight 106 kg Donte Paulino MD Work Phone: [facility] 08-05-2025 13:20-0400 Diastolic blood pressure 64 mm[Hg] Donte Paulino MD Work Phone: [facility] 08-05-2025 13:20-0400 Heart rate 80 /min Donte Paulino MD Work Phone: [facility] 08-05-2025 13:20-0400 SaO2% (BldA) [Mass fraction] 96 % Donte Paulino MD Work Phone: [facility] 08-05-2025 13:20-0400 Systolic blood pressure 124 mm[Hg] Donte Paulino MD Work Phone: [facility] 07-30-2025 13:53-0400 Body height 170 cm Sneha Myers MD Work Phone: [facility] 07-30-2025 13:53-0400 Body height 170.18 cm Sneha Myers MD Work Phone: [facility] 07-30-2025 13:53-0400 Body mass index (BMI) [Ratio] 36.78 kg/m2 Sneha Myers MD Work Phone: [facility] 07-30-2025 13:53-0400 Body weight 106 kg Sneha Myers MD Work Phone: [facility] 07-30-2025 13:53-0400 Body weight 106.14 kg Sneha Myers MD Work Phone: [facility] 07-30-2025 13:53-0400 BP SITE #1 Sneha Myers MD Work Phone: [facility] 07-30-2025 13:53-0400 Diastolic blood pressure 61 mm[Hg] Sneha Myers MD Work Phone: [facility] 07-30-2025 13:53-0400 Heart rate 73 /min Sneha Myers MD Work Phone: [facility] 07-30-2025 13:53-0400 HGHTCHNVIS Sneha Myers MD Work Phone: [facility] 07-30-2025 13:53-0400 Systolic blood pressure 112 mm[Hg] Sneha Myers MD Work Phone: [facility] 07-30-2025 13:53-0400 VITALSDONE Sneha Myers MD Work Phone: [facility] 06-12-2025 12:03-0400 Body height 172.7 cm Donte Paulino MD Work Phone: [facility] 06-12-2025 12:03-0400 Body mass index (BMI) [Ratio] 35.47 kg/m2 Donte Paulino MD Work Phone: [facility] 06-12-2025 12:03-0400 Body weight 105.8 kg Donte Paulino MD Work Phone: [facility] 06-12-2025 12:03-0400 Diastolic blood pressure 71 mm[Hg] Donte Paulino MD Work Phone: [facility] 06-12-2025 12:03-0400 Heart rate 65 /min Donte Paulino MD Work Phone: [facility] 06-12-2025 12:03-0400 SaO2% (BldA) [Mass fraction] 95 % Donte Paulino MD Work Phone: [facility] 06-12-2025 12:03-0400 Systolic blood pressure 117 mm[Hg] Donte Paulino MD Work Phone: [facility] 06-10-2025 13:36-0400 Body height 172.[address] Angelika Gilman MD Work Phone: [facility] 06-10-2025 13:36-0400 Body mass index (BMI) [Ratio] 34.9 kg/m2 Dr. Angelika Gilman MD Work Phone: [facility] 06-10-2025 13:36-0400 Body weight 104.[address] Angelika Gilman MD Work Phone: [facility] 06-09-2025 20:57-0400 Body temperature 99.5 [degF] Dr. Angelika Gilman MD Work Phone: [facility] 06-09-2025 20:57-0400 Diastolic blood pressure 67 mm[Hg] Dr. Angelika Gilman MD Work Phone: [phone] [place] [address] 06-09-2025 20:57-0400 Heart rate 79 /min Dr. Angelika Gilman MD Work Phone: [phone])[phone] [place] [address] 06-09-2025 20:57-0400 Respiratory rate 16 /min Dr. Angelika Gilman MD Work Phone: [phone] [place] [address] 06-09-2025 20:57-0400 SaO2% (BldA) [Mass fraction] 97 % Dr. Angelika Gilman MD Work Phone: [phone] [place] [address] 06-09-2025 20:57-0400 Systolic blood pressure 160 mm[Hg] Dr. Angelika Gilman MD Work Phone: [phone] [place] [address] 06-09-2025 16:47-0400 Body height 172.[address] Angelika Gilman MD Work Phone: [phone])[phone] [place] [address] 06-09-2025 16:47-0400 Body mass index (BMI) [Ratio] 35.3 kg/m2 Dr. Angelika Gilman MD Work Phone: [facility] 06-09-2025 16:47-0400 Body weight 105.[address] Angelika Gilman MD Work Phone: [facility] 12-13-2024 10:45-0500 Body weight 102.1 kg Donte Paulino MD Work Phone: [facility] 12-13-2024 10:45-0500 Diastolic blood pressure 84 mm[Hg] Donte Paulino MD Work Phone: [facility] 12-13-2024 10:45-0500 Heart rate 82 /min Donte Paulino MD Work Phone: [facility] [facility] 12-13-2024 10:45-0500 SaO2% (BldA) [Mass fraction] 98 % Donte Paulino MD Work Phone: [facility] 12-13-2024 10:45-0500 Systolic blood pressure 136 mm[Hg] Donte Paulino MD Work Phone: [facility] 12-13-2024 10:31-0500 Body weight 102.06 kg Donte Paulino MD Work Phone: [facility] Comment on above: historic 12-13-2024 10:31-0500 Diastolic blood pressure 84 mm[Hg] Donte Paulino MD Work Phone: [facility] 12-13-2024 10:31-0500 Heart rate 82 /min Donte Paulino MD Work Phone: [facility] 12-13-2024 10:31-0500 SaO2% (BldA) [Mass fraction] 98 % Donte Paulino MD Work Phone: [facility] 12-13-2024 10:31-0500 Systolic blood pressure 136 mm[Hg] Donte Paulino MD Work Phone: [facility] Encounters Encounter Date Encounter Type Care Provider Facility Start: 10-02-2025 ambulatory HAWA LYNN Facility:[facility] Start: 10-02-2025 End: 10-02-2025 ambulatory HAWA LYNN Facility:[facility] Start: 10-01-2025 ambulatory HILARIO RIDDLE Facili ty:[facility] Start: 10-01-2025 End: 10-01-2025 ambulatory HILARIO RIDDLE Facility:[facility] Start: 08-18-2025 ambulatory HAWA LYNN Facility:[facility] Start: 08-05-2025 End: 08-05-2025 Patient encounter procedure Donte Paulino MD Work Phone: Neurology Comment on above: Cervical dystonia (P rimary Dx); Tremor Start: 08-05-2025 End: 08-05-2025 ambulatory DONTE PAULINO Facility:[facility] Start: 07-31-2025 End: 07-31-2025 ambulatory HAWA LYNN Facility:[facility] Start: 07-30-2025 Visit out of hours Sneha ortiz MD Work Phone: [employer] 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 Doroteo Bermudez MD Work Phone: [facility] Start: 07-16-2025 End: 07-16-[address] Erick Pearce DO -[facility] Work Phone: Start: 07-16-2025 End: 07-16-2025 ambulatory Erick Pearce Facility:[facility] Start: 06-28-2025 End: 06-28-2025 Patient encounter procedure Hilario Riddle Work Phone: Podiatry Comment on above: Diabetic polyneuropa thy associated with type 2 diabetes mellitus (HCC) (Primary Dx); Hallux valgus of right foot; Hammer toe of right foot; Onychomycosis; Callus of foot Start: 06-28-2025 End: 06-28-2025 ambulatory HILARIO RIDDLE Facility:[facility] Start: 06-12-2025 End: 06-12-2025 Patient encounter procedure Donte Paulino MD Work Phone: Neurology Comment on above: Cervical dystonia (P rimary Dx); Tremor Start: 06-12-2025 End: 06-12-2025 ambulatory DONTE PAULINO Facility:[facility] Start: 06-10-2025 End: 06-10-[address] Erick Pearce DO -[facility] Work Phone: Start: 06-10-2025 End: 06-10-[address] Angelika Gilman MD Work Phone: -[facility] Start: 06-09-2025 ambulatory Doroteo Bermudez Facility:[facility] Start: 06-09-2025 Non-patient / Non-visit Dr. Gala Pearce DO -[facility] Start: 06-09-2025 End: 06-09-2025 Emergency department patient visit Dr. Angelika Gilman MD Work Phone: -Emergency Department Work Phone: Start: 04-12-2025 ambulatory ESTRELLA ARIAS Facility:[facility] Start: 03-06-2025 End: 03-06-[address] Angelika Gilman MD -[facility] Work Phone: Start: 03-06-2025 End: 03-06-2025 ambulatory Angelika Gilman Facility:[facility] Start: 01-09-2025 End: 01-10-2025 Telephone encounter Donte Paulino MD Work Phone: Neurology Comment on above: Medication Problem Start: 12-24-2024 End: 12-24-2024 ambulatory HILARIO RIDDLE Facility:[facility] Start: 12-24-2024 End: 12-24-2024 Patient encounter procedure Hilario Riddle Work Phone: Podiatry Comment on above: Diabetic polyneuropa thy associated with type 2 diabetes mellitus (HCC) (Primary Dx); Hallux valgus of right foot; Callus of foot Start: 12-13-2024 End: 12-13-2024 ambulatory DONTE PAULNIO Facility:[facility] Start: 12-13-2024 End: 12-13-2024 Patient encounter procedure Donte Paulino MD Work Phone: Neurology Comment on above: Essential tremor (Pr imary Dx) OPENED IN ERROR (Danitza rian Dx) Start: 10-29-2024 ambulatory Erick Mendez Facilit y:[facility] Procedures Date Procedure Procedure Detail Performing Clinician Start: 07-30-2025 Blood pressure withi n normal parameters - no follow-up required Sneha Myers MD Work Phone: Start: 07-30-2025 BMI documented as ab ove normal parameters - follow-up documented Sneha Myers MD Work Phone: Start: 07-30-2025 Current tobacco non- user cad cap copd pv dm Sneha Myers MD Work Phone: Start: 07-30-2025 Documentation of cur rent medications Sneha Myers MD Work Phone: Start: 07-30-2025 Pain assessment docu mented as negative - follow-up not required Sneha Myers MD Work Phone: Start: 07-29-2025 End: 07-29-2025 Visual field xm uni/bi w/interp extended exam Hawa Lynn MD Work Phone: Start: 07-16-2025 MRI of joint of lowe r extremity Dr. Doroteo Bermudez MD Work Phone: Start: 06-09-2025 Plain x-ray of elbow Dr Gianni Gilman MD Work Phone: Start: 06-09-2025 Plain x-ray of elbow Dr Gianni Gilman MD Work Phone: Start: 06-09-[address] Angelika Gilman MD Work Phone: Start: 03-06-2025 MRI of orbit, face a nd neck with contrast Dr. 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 Angelika Gilman MD Work Phone: Plan of Treatment Date Care Activity Detail Author Start: 07-29-2026 Glaucoma screening Dilated Retinal E xam [facility] Start: 02-19-2026 End: 02-19-2026 Patient encounter procedure 02/19/2026 1:30 PM EDT Office Visit Neurology [address] [place] [id number] Donte Paulino MD [address] [place] [address] Return in about 3 months (around 11/04/2025). Neurology Comment on above: Return in about 3 mo nths (around 11/04/2025). Start: 12-24-2025 End: 12-24-2025 Patient encounter procedure Podiatry Comment on above: 1 year follow uo Start: 11-20-2025 End: 11-20-2025 Patient encounter procedure 11/20/2025 1:30 PM EST Office Visit Neurology [address] [place] [phone] Donte Paulino MD [address] [place], [place] [phone] Return in about 3 months (around 11/04/2025). Neurology Comment on above: Return in about 3 mo nths (around 11/04/2025). Start: 10-02-2025 End: 10-02-2025 Patient encounter procedure 10/02/2025 8:45 AM EST Office Visit [facility] Ophthalmology [address] [address] [place] [address] [place] [address] optic nerve atrophy Ophthalmology Comment on above: optic nerve atrophy Start: 10-01-2025 End: 10-01-2025 Patient encounter procedure 10/01/2025 2:15 PM EST Office Visit Podiatry [address] [place], [place] [phone] Hilario Riddle [address] [place], [place] [phone] 3 month follow up nail care Podiatry Comment on above: 3 month follow up na il care Start: 08-18-2025 End: 08-18-2025 Patient encounter procedure 08/18/2025 3:40 PM EDT Appointment MRI Q [address] [address] mri MRI Q Comment on above: mri Start: 08-05-2025 End: 08-05-2025 Patient encounter procedure 08/05/2025 1:30 PM EDT Office Visit Neurology [address] [place] [address] [place] [address] Donte Paulino MD [address] [place] [address] Botox Neurology Comment on above: Botox Start: 07-29-2025 End: 10-28-2025 Angiotensin converting enzyme [Enzymatic activity/volume] in Serum or Plasma NISHANT/ANGIOTENSIN BLD Lab Routine Optic nerve atrophy Visual field defect Pseudophakia of both eyes Type 2 diabetes mellitus without retinopathy (HCC) Expected: 07/29/2025, Expires: 10/28/2025 [facility] Comment on above: Expected: 07/29/2025 , Expires: 10/28/2025 Start: 07-29-2025 End: 10-28-2025 BLOOD TB SCREEN BLOOD TB SCREEN Lab Routine Optic nerve atrophy Visual field defect Pseudophakia of both eyes Type 2 diabetes mellitus without retinopathy (HCC) Expected: 07/29/2025, Expires: 10/28/2025 [facility] Comment on above: Expected: 07/29/2025 , Expires: 10/28/2025 Start: 07-29-2025 End: 10-28-2025 CBC W Auto Differential panel - Blood COMPLETE BLOOD COUNT AND DIFFERENTIAL Lab Routine Optic nerve atrophy Visual field defect Pseudophakia of both eyes Type 2 diabetes mellitus without retinopathy (HCC) Expected: 07/29/2025, Expires: 10/28/2025 [facility] Comment on above: Expected: 07/29/2025 , Expires: 10/28/2025 Start: 07-29-2025 End: 10-28-2025 Comprehensive metabolic 2000 panel - Serum or Plasma COMPREHENSIVE METABOLIC PANEL Lab Routine Optic nerve atrophy Visual field defect Pseudophakia of both eyes Type 2 diabetes mellitus without retinopathy (HCC) Expected: 07/29/2025, Expires: 10/28/2025 [facility] Comment on above: Expected: 07/29/2025 , Expires: 10/28/2025 Start: 07-29-2025 End: 10-28-2025 SYPHILIS TREPONEMAL W/REFLEX SYPHILIS TREPONEMAL W/REFLEX Lab Routine Optic nerve atrophy Visual field defect Pseudophakia of both eyes Type 2 diabetes mellitus without retinopathy (HCC) Expected: 07/29/2025, Expires: 10/28/2025 [facility] Comment on above: Expected: 07/29/2025 , Expires: 10/28/2025 Start: 07-29-2025 End: 07-29-2025 Patient encounter procedure 07/29/2025 1:30 PM EDT Office Visit [facility] [address] [address] Macario Snyder, DO [address] [place] [address] [facility] [address] [address] Optic atrophy os, signifigant vision loss os, abnormal eye exam and abnormal mri Ophthalmology Comment on above: Optic atrophy os, si gnifigant vision loss os, abnormal eye exam and abnormal mri Start: 07-22-2025 Influenza vaccination Influenza Vacc ine (#1) [facility] Start: 06-28-2025 End: 06-28-2025 Patient encounter procedure 06/28/2025 3:40 PM EDT Office Visit Podiatry [address] [place], [place] [phone] Hilario Riddle [address] [place], [place] [phone] nail care Podiatry Comment on above: nail care Start: 06-12-2025 End: 06-12-2025 Patient encounter procedure 06/12/2025 12:00 PM EDT Office Visit Neurology [address] [place] [address] Donte Paulino MD [address] [place] [address] 6 mo f/u Neurology Comment on above: 6 mo f/u Start: 06-09-2025 [facility] Start: 06-09-2025 Arthrocentesis aspir&/inj interm jt/burs w/o us DRAIN/INJ JOINT/BURSA W/O US [facility] Start: 03-14-2025 End: 03-14-2025 Patient encounter procedure 03/14/2025 12:30 PM EDT Office Visit Neurology [address] [facility] [address] [place] [phone] Donte Paulino MD [address] [place] [address] 3 mo f/u Neurology Comment on above: 3 mo f/u Start: 12-24-2024 End: 12-24-2024 Patient encounter procedure 12/24/2024 3:00 PM EST Office Visit Podiatry [address] [place] [address] Hilario Riddle [address] [address] New diabetic nail concern Podiatry Comment on above: New diabetic nail co ncern Start: 11-21-2024 Advance Directive Discussion Advance Directive Discussion [facility] Start: 11-21-2024 Medicare Advantage Annual Wellness Visit Medicare Advantage Annual Wellness Visit [facility] Start: 07-22-2024 Covid-19 Vaccine ( season) Covid-19 Vaccine ( season) [facility] Start: 07-22-2024 Influenza vaccination Influenza Vacc ine (#1) [facility] Start: 2021 RSV Vaccine (1 - 1-d ose 75+ series) RSV Vaccine (1 - 1-dose 75+ series) [facility] Start: 1996 Pneumococcal Vaccine : 50+ (1 of 1 - PCV) Pneumococcal Vaccine: 50+ (1 of 1 - PCV) [facility] Start: 1996 Shingrix Vaccine (1 of 2) Shingrix Vaccine (1 of 2) [facility] Start: 1991 Diabetes Screening Diabetes Screenin g [facility] Start: 1965 Pneumococcal Vaccine : 50+ (1 of 2 - PCV) Pneumococcal Vaccine: 50+ (1 of 2 - PCV) [facility] Start: 1965 Urine microalbumin profile DTaP,Tdap,Td Vaccine (1 - Tdap) [facility] Start: 1964 Annual PCP Team [employer] orion Disease Visit Annual PCP Team Chronic Disease Visit [facility] Start: 1964 Anxiety Screening Anxiety Screening [facility] Start: 1964 Depression Screening Depression Scre ening [facility] Start: 1964 Hepatitis B surface antibody level LDL Cholesterol [facility] Start: 1964 Hepatitis C screening Hepatitis C Sc tierney [facility] Start: 1956 Diabetic foot examination Diabetic Foot Exam [facility] Start: 1956 Glaucoma screening Dilated Retinal E xam [facility] Start: 1956 Hepatitis B screening Urine Albumin:Creatinine Ratio [facility] Start: 1951 Hemoglobin A1c measurement HbA1C [facility] End: 08-28-2026 MR Brain WO and W contrast IV MRI BRAIN WO/W IVCON Radiology Routine Optic nerve atrophy Visual field defect Pseudophakia of both eyes Type 2 diabetes mellitus without retinopathy (HCC) 1 Occurrences starting 07/29/2025 until 08/28/2026 [facility] Work Phone: Comment on above: 1 Occurrences starti ng 07/29/2025 until 08/28/2026 MR Lower Extremity Joint [facility] End: 08-28-2026 MR Orbit WO and W contrast IV MRI ORBIT WO/W IVCON Radiology Routine Optic nerve atrophy Visual field defect Pseudophakia of both eyes 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 2024 Medicare (Managed Care) HUMANA G OLD PLUS [id number] 2024 Private Health Insurance [id number] 2024 Private Health Insurance [id number] 2024 Self-pay Unknown [id number] Unknown [id number] Unknown [id number] Unknown [id number] Unknown [id number] Unknown [id number] Social History Date Type Detail Facility Start: 12-13-2024 End: 06-10-2025 Tobacco smoking status NHIS Never smoked tobacco [facility] Start: 12-13-2024 Tobacco use and exposure Smokeless tobacco non-user [facility] Start: 12-13-2024 End: 08-05-2025 Alcoholic beverage intake Lifetime non-drinker (finding) [facility] Start: 12-13-2024 End: 12-24-2024 History of Social function [facility] Start: 12-13-2024 End: 12-24-2024 Tobacco use panel [facility] Start: 08-28-2024 National Score (1-10 0), lower number is lower risk 72 [facility] Start: 1945 Sex assigned at Not on file [facility] Start: 1945 Sex Assigned At Male W [facility] Medical Equipment Procedure Code Equipment Code Equipment Origin al Text Equipment Identifier Dates Start: 08-16-2024 End: 06-12-2025 Clinical Notes 12-13-2024 to 10-02-2025 Donte Paulino MD - 08/05/2025 1:33 PM EDTPatient Hawa Quinones MD - 07/29/2025 3:25 PM EDTTHilario patel - 06/30/2025 10:12 AM EDCristal Lewis RN - 06/28/2025 3:06 PM EDT Note Date & Type Note Facility 10-02-2025 Note HNO ID: [id number] Author: HILARIO RIDDLE, ? Service: ? Author Type: Physician Type: Progress Notes Filed: 10/02/2025 11:36 Note Text: duplicate [facility] 10-02-2025 Note HNO ID: [id number] Author: HAWA LYNN MD Service: ? Author Type: Physician Type: Progress Notes Filed: 10/02/2025 16:17 Note Text: New patient referred by Dr. Angelika Gilman Course / HPI: - 12/2024 optic nerve atrophy OS seen on exam by outside food service lead; patient asymptomatic - +pulsatile tinnitus left eye for past 3-4 years Medical Hx: T2DM (on insulin), HTN, cervical dystonia (receives Botox q3mo with success x8y, follows with Dr. Paulino [facility]) Recent Neuro-Imaging: - MRI orbit w/wo (03/06/25): OSH - read only available AND brought by patient: +left optic atrophy, mild cortial FLAIR hyperintensity in both mesial temporal lobes and posterior limbic areas without associated DW hyperineinsity or enhancement. Ddx includes autoimmune encephalitis, neurosarcoidosis, and steroid responsive encephalopathy among others based on clinical scenario MRI Orbit WWO (08/18/2025): There is asymmetric volume loss involving intraconal segment of the left optic nerve as well as canalicular segment and cisternal segment. Optic chiasm and right optic nerve are normal in appearance. No mass or pathologic intraorbital enhancement. No sellar/suprasellar mass identified. Extraocular muscles demonstrate normal morphology and signal intensity bilaterally, no mass or pathologic enhancement. Globes are normal in appearance bilaterally. Lacrimal glands are unremarkable. Atrophy of the left optic nerve as discussed. No intraorbital mass or pathologic enhancement. No acute intracranial findings. Mild diffuse parenchymal volume loss and mild sequela of chronic microvascular ischemia. No mass or pathologic intracranial enhancement. Lab Workup: - none EXAM: - Pupils: +APD Left eye (by reverse) - Colors (Ishihara): full both eyes - MRD1: symmetric both eyes - MRD2: symmetric both eyes - Ortho - EOM: full both eyes; no pain with eye movement - Nystagmus: tr end gaze nystagmus in far horizontal gaze - V1,2,3 normal and symmetric - Normal and symmetric upper and lower facial movement - Denies imbalance, vertigo, dizziness, tinnitus - sl weaker R shoulder shrug - Normal XII HVF 07/29/25 AND 10/02/2025: left eye sup altitudinal defect, inf arcuate with corresponding GCL defect left eye OCT NFL OD nl; OS diffuse thinning worse inf vs sup ASSESSMENT/PLAN Last dilated fundus exam: July 29, 2025 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) H53.40 Visual field defect Comment: - cupping with loss of rim and associated visual field defect as well as pallor - MRI in February 2025 at OSH with concern for inflammatory changes but no images for review - could represent glaucomatous changes and history of uveitis vs NAION - no signs of compressive disease on imaging - patient does not notice his vision changes / visual field defect at all - Intraocular pressure is normal today and clinical exam is without signs of current or prior inflammation - fellow eye is not a disc at risk but does have an enlarged C:D - repeat MRI brain and orbits (08/18/2025) does not demonstrate the previously denoted mild cortial FLAIR hyperintensity in both mesial temporal lobes and posterior limbic areas - 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 - lab work-up for CBC, CMP; syphilis; TB; NISHANT was normal - stable visual field defects AND RNFL / GCL testing today - will check optic atrophy labs - OCTA shows loss of DCP left eye only in the inferotemporal quadrant - consistent with area of GCL loss - UWFA with normal transit times and no macular ischemia - will communicate lab results via [employer] - if normal follow up with Dr Gilman and consider glaucoma / Intraocular pressure lowering meds Z96.1 Pseudophakia of both eyes Comment: stable/obs E11.9 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 I have seen and examined Jose Enriquez. I have discussed the case and the management of this patient's care with the Resident/Fellow, if applicable. I also have reviewed and agree with the assessment and plan as stated above and agree with all of its relevant components. [facility] 10-01-2025 Note HNO ID: [id number] Author: JOSE MARIA MONTERROSO RT(R) Service: ? Author Type: Ripening Room Hand Type: Progress Notes Filed: 10/01/2025 15:09 Note Text: Radiology Service Progress Note PATIENT NAME: Jose Enriquez DATE OF SERVICE: October 01, 2025 TIME: 3:00 PM PATIENT IDENTITY VERIFICATION COMPLETED USING TWO (2) IDENTIFIERS: Name and Date of confirmed by patient verbally. FALL SCREENING: Has the patient had 2 falls in the last year or 1 fall with injury or currently using an Ambulatory Assistive Device (Walker, Cane, Wheelchair, Crutches, etc.)? No PATIENT GENDER DATA: Assigned male at PATIENT RELEVANT IMPLANT DATA REVIEWED: Yes PATIENT PRESENTS WITH AN IMPLANTABLE OR ATTACHED TUNNELLER: No RADIOLOGY DEPARTMENT: General X-ray: Exam(s) Completed: Lower Extremity X-Ray(s): Foot, Right PERIPHERAL IV DATA: Not applicable SIGNED BY: RT Bello(R) October 01, 2025 3:00 PM [facility] 10-01-2025 Note HNO ID: [id number] Author: HILARIO RIDDLE, ? Service: ? Author Type: Physician Type: Progress Notes Filed: 10/02/2025 11:36 Note Text: Last saw pcp: not in chart Subjective: Patient presents to clinic c/o painful toenails. They state that the nails are especially painful with shoe gear and pressure. Patient states that nails 1-5 b/l are painful. Patient admits to being diabetic. No other pedal complaints at this time. Patient states no change in medications or medical history since last visit. Objective: Patient presents to clinic ambulating in sneakers Vasc: DP and PT pulses are palpable bilateral. CFT is less than 5 seconds bilateral. Skin temperature is warm to cool proximal to distal bilateral. There is mild edema or varicosities noted. Neuro: Protective sensation is intact to the foot and toes when tested with the 5.07 SWM bilateral. Vibratory sensation is decreased at the hallux IPJ bilateral. The hallux is downgoing bilateral. Derm: Nails 1-5 b/l are painful, discolored-yellow, thick, crumbly, dystrophic and with subungal debris. Skin is of normal turgor, texture and hair growth is absent bilateral. There are no hyperkeratosis, ulcerations, scars, verruca or other lesions noted. Ortho: Muscle strength is 5/5 for all pedal groups tested. Ankle joint DF is decreased with the knee extended with no pain or crepitus noted. 1st MPJ ROM is decreased bilateral. Flatfoot is noted to right foot. Pain is present to medial instep Assessment: (E11.42) Diabetic polyneuropathy associated with type 2 diabetes mellitus (HCC) (primary encounter diagnosis) (B35.1) Onychomycosis (M79.675) Pain in toe of left foot (M79.674) Pain in toe of right foot (M76.829) Posterior tibial tendon dysfunction Plan: Patient was seen and evaluated. Nails 1-5 bilateral were debrided in length and thickness. Patient was instructed on the continued importance of diabetic foot care along with proper diet and keeping their blood sugar under control to prevent complications. Patient has pain along the medial arch of right ankle. Suspect component of posterior tibial tendon dysfunction. Recommend the use of orthotics, good supportive shoes. Will check xrays. Patient is to RTC in 3-4 months. Hilario Riddle DPM [facility] 10-01-2025 Note HNO ID: [id number] Author: HILARIO RIDDLE, ? Service: ? Author Type: Physician Type: Progress Notes Filed: 10/02/2025 11:36 Note Text: Patient presents with: Left Foot - Established Patient, Follow Up, Diabetic Foot Check Right Foot - Established Patient, Follow Up, Diabetic Foot Check Patient presents for follow up diabetic foot/nail care. Also due for diabetic foot exam. Does have intermittent right foot pain to medial foot/arch that occurs when he's on his feet a long time. Also sometimes has tenderness to right lower leg at night. BARBARA 06/28/25 [facility] 08-18-2025 Note HNO ID: [id number] Author: ONUR GÓMEZ RN Service: Radiology Author Type: Registered Nurse Type: Progress Notes Filed: 08/18/2025 14:51 Note Text: Radiology Service Progress Note DATE OF SERVICE: August 18, 2025 TIME: 2:38 PM PATIENT WEIGHT: 233 LBS PATIENT IDENTITY VERIFICATION COMPLETED USING TWO (2) STANDARD IDENTIFIERS: Name and Date of confirmed by patient verbally and Name and Date of confirmed by identification band. FALL SCREENING: Has the patient had 2 falls in the last year or 1 fall with injury or currently using an Ambulatory Assistive Device (Walker, Cane, Wheelchair, Crutches, etc.)? No PATIENT GENDER DATA: Assigned male at ALLERGIES: Reviewed and unchanged CONTRAST ALLERGY: No EXAM: MRI - CONTRAST TYPE: GROUP II IV SITE: Ambulatory: A peripheral IV was started in the Left antecubital site with a Angio cath: 22 gauge. and A Saline lock was inserted per protocol IV SITE APPEARANCE: Clean,Dry and Intact SIGNATURE: Onur Gómez RN PATIENT NAME: Jose Enriquez DATE: August 18, 2025 TIME: 2:38 PM [facility] 08-18-2025 Note HNO ID: [id number] Author: DARLENE CANO RT(R) Service: Radiology Author Type: Technologist Type: Progress Notes Filed: 08/18/2025 15:10 Note Text: Radiology Service Progress Note PATIENT NAME: Jose Enriquez DATE OF SERVICE: August 18, 2025 TIME: 3:09 PM PATIENT IDENTITY VERIFICATION COMPLETED USING TWO (2) IDENTIFIERS: Name and Date of confirmed by patient verbally and Name and Date of confirmed by identification band. FALL SCREENING: Has the patient had 2 falls in the last year or 1 fall with injury or currently using an Ambulatory Assistive Device (Walker, Cane, Wheelchair, Crutches, etc.)? No PATIENT GENDER DATA: Assigned male at PATIENT RELEVANT IMPLANT DATA REVIEWED: Yes PATIENT PRESENTS WITH AN IMPLANTABLE OR ATTACHED TUNNELLER: No RADIOLOGY DEPARTMENT: MR; Exam(s) Completed: Head: Orbit/Sinus. Anesthesia: No. Aromatherapy Administered: No PERIPHERAL IV DATA: Site assessment: Clean,Dry and Intact, Site disposition Discontinued SIGNED BY: RT Promise(R) August 18, 2025 3:09 PM [facility] 08-05-2025 Note HNO ID: [id number] Author: DONTE PAULINO MD Service: ? Author Type: Physician Type: Progress Notes Filed: 08/05/2025 15:00 Note Text: [facility] Neurotoxin Visit Date: August 05, 2025 Name: Jose Enriquez SUBJECTIVE: Historical/ Initial Dose Diagnosis: Cervical dystonia (G24.3) Date of diagnosis: 12/13/24 first visit with me, tremor most of his life getting botulinum toxin for 10-15 years Other treatments hthat ave been tried and failed: Medications propranolol Date of first neurotoxin treatment: 08/05/25 with me, 10-15 years first with outside providers Type of neurotoxin given: Botox: J0585 Frequency of current neurotoxin treatment: 90days Estimated frequency and duration of treatment: continue with current injection interval; will reassess after 1 year Last Injection Notes Date of last Injection: n/a Type of neurotoxin: Botox: J0585 Total amount injected: n/a units Dilution: NS 1:1 Administered with EMG guidance: Yes Degree of effectiveness of last injection: n/a % Latency period of last injection: n/a week(s) Wearing off period of last injection: n/a week(s) Side effects related to last injection: None Current pain symptoms: No Current functional limitations: 2(moderate) and 3(severe) Finally, the following table shows the patient's overall global physical and mental health using the PROMIS scale: PROMIS-10 Flowsheet Row Office Visit from 08/05/2025 in Neurology Office Visit from 06/12/2025 in Neurology Global Physical Health T Score 54.1 50.8 Global Mental Health T Score 53.3 56 0-10 Standard Pain Scale 4 5 *PROMIS-10 scoring scale: mean = 50, over 50 is above average, under 50 is below average Allergies: ALLERGIES Allergen Reactions Propranolol Diarrhea, Vomiting, Other: See Comments Current Medications: Current Outpatient Medications Medication Sig OTC PRODUCT MELATONIN, ALLERGY RELIEF PROSTATE HEALTH JOINT/ MUSCLE SUPPORT V-8 WITH GARLIC, OLIVE OIL, CAYENNE PEPPER, LEMON, TURMERIC onabotulinum toxin type A (BOTOX) 100 unit solr Inject up to 300 units IM in office by neurologist every 3 months. simvastatin (ZOCOR) 10 mg tablet Take 10 [...] (3 mL) INJECT 14 UNITS SUBCUTANEOUSLY DAILY BD INSULIN SYRINGE ULTRA-FINE 1 mL 31 gauge x 5/16 zinc/[place]/pumpkn/saw p/prost (MEN'S SAW PALMETTO FORMULA ORAL) Take by mouth. (Patient not taking: Reported on 08/05/2025) propranolol ER (INDERAL LA) 60 mg 24 hr capsule Take 1 capsule by mouth once daily. (Patient not taking: Reported on 08/05/2025) propranolol (INDERAL) 10 mg tablet Take 1 pill twice a day for a week, then 2 pills twice a day for a week, then change to the 60 mg once a day pill thereafter. (Patient not taking: Reported on 12/24/2024) No current facility-administered medications for this visit. OBJECTIVE: BP 124/64 (BP Site: Right Arm, BP Position: Sitting, BP Cuff Size: Regular Adult) Pulse 80 Wt 106 kg (233 lb 11 oz) SpO2 96% BMI 35.53 kg/m? Special features on today's visit: multidirectional head tremor ASSESSMENT AND PLAN: Mr. 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 After obtaining informed consent, neurotoxin injections were carried out as outlined below. TIME OUT/ PROCEDURE NOTE: Informed consent Jose Enriquez Medical Record: [id number] Procedure: neurotoxin intramuscular injection The risks, benefits and anticipated outcomes of the procedure, the risks and benefits of the alternatives to the procedure and the roles and tasks of the personnel to be involved were discussed with the patient and the patient consents to the procedure and agrees to proceed. I verify that I personally obtained Jose Enriquez's consent. Donte Paulino MD UNIVERSAL PROTOCOL / SAFETY CHECKLIST Procedure to be Performed: Botulinum toxin for cervical dystonia / head tremor Sign In: A Moment of CARE was completed. Appropriate PPE (Personal Protective Equipment) worn by all providers involved with the procedure. Special equipment not required. Patient/Surrogate Stated/Verified: Patient name, Date of , Relevant allergies, and The intended procedure Time Out: Relevant labs, photos, and/or imaging studies have been reviewed. Intended patient and procedure match the source document(s) (e.g. consent, HANDP, associated studies [imaging, pathology]) match the intended patient and procedure. Consent obtained and matches the intended procedure. Yes. Correct (more content not included)... [facility] 08-05-2025 History of Present illness Narrative Images from the original note were not included. [place] [facility] Neurotoxin Visit Date: August 05, 2025 Name: Jose Enriquez SUBJECTIVE: Historical/ Initial Dose Diagnosis: Cervical dystonia (G24.3) Date of diagnosis: 12/13/24 first visit with me, tremor most of his life getting botulinum toxin for 10-15 years Other treatments hthat ave been tried and failed: Medications propranolol Date of first neurotoxin treatment: 08/05/25 with me, 10-15 years first with outside providers Type of neurotoxin given: Botox: J0585 Frequency of current neurotoxin treatment: 90days Estimated frequency and duration of treatment: continue with current injection interval; will reassess after 1 year Last Injection Notes Date of last Injection: n/a Type of neurotoxin: Botox: J0585 Total amount injected: n/a units Dilution: NS 1:1 Administered with EMG guidance: Yes Degree of effectiveness of last injection: n/a % Latency period of last injection: n/a week(s) Wearing off period of last injection: n/a week(s) Side effects related to last injection: None Current pain symptoms: No Current functional limitations: 2(moderate) and 3(severe) Finally, the following table shows the patient's overall global physical and mental health using the PROMIS scale: PROMIS-10 Flowsheet Row Office Visit from 08/05/2025 in Neurology Office Visit from 06/12/2025 in Neurology Global Physical Health T Score 54.1 50.8 Global Mental Health T Score 53.3 56 0-10 Standard Pain Scale 4 5 *PROMIS-10 scoring scale: mean = 50, over 50 is above average, under 50 is below average Allergies: ALLERGIES Allergen Reactions Propranolol Diarrhea, Vomiting, Other: See Comments Current Medications: Current Outpatient Medications Medication Sig OTC PRODUCT MELATONIN, ALLERGY RELIEF PROSTATE HEALTH JOINT/ MUSCLE SUPPORT V-8 WITH GARLIC, OLIVE OIL, CAYENNE PEPPER, LEMON, TURMERIC onabotulinum toxin type A (BOTOX) 100 unit solr Inject up to 300 units IM in office by neurologist every 3 months. simvastatin (ZOCOR) 10 mg tablet Take 10 [...] (3 mL) INJECT 14 UNITS SUBCUTANEOUSLY DAILY BD INSULIN SYRINGE ULTRA-FINE 1 mL 31 gauge x 5/16 zinc/[place]um/pumpkn/saw p/prost (MEN'S SAW PALMETTO FORMULA ORAL) Take by mouth. (Patient not taking: Reported on 08/05/2025) propranolol ER (INDERAL LA) 60 mg 24 hr capsule Take 1 capsule by mouth once daily. (Patient not taking: Reported on 08/05/2025) propranolol (INDERAL) 10 mg tablet Take 1 pill twice a day for a week, then 2 pills twice a day for a week, then change to the 60 mg once a day pill thereafter. (Patient not taking: Reported on 12/24/2024) No current facility-administered medications for this visit. OBJECTIVE: BP 124/64 (BP Site: Right Arm, BP Position: Sitting, BP Cuff Size: Regular Adult) Pulse 80 Wt 106 kg (233 lb 11 oz) SpO2 96% BMI 35.53 kg/m Special features on today's visit: multidirectional head tremor ASSESSMENT AND PLAN: Mr. 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 After obtaining informed consent, neurotoxin injections were carried out as outlined below. TIME OUT/ PROCEDURE NOTE: Informed consent Jose Enriquez Medical Record: [id number] Procedure: neurotoxin intramuscular injection The risks, benefits and anticipated outcomes of the procedure, the risks and benefits of the alternatives to the procedure and the roles and tasks of the personnel to be involved were discussed with the patient and the patient consents to the procedure and agrees to proceed. I verify that I personally obtained Jose Enriquez's consent. Donte Paulino MD UNIVERSAL PROTOCOL / SAFETY CHECKLIST Procedure to be Performed: Botulinum toxin for cervical dystonia / head tremor Sign In: A Moment of CARE was completed. Appropriate PPE (Personal Protective Equipment) worn by all providers involved with the procedure. Special equipment not required. Patient/Surrogate Stated/Verified: Patient name, Date of , Relevant allergies, and The intended procedure Time Out: Relevant labs, photos, and/or imaging studies have been reviewed. Intended patient and procedure match the source document(s) (e.g. consent, H&P, associated studies [imaging, pathology]) match the intended patient and procedure. Consent obtained and matches the intended procedure. Yes. Correct side/site is not applicable. Medications required for this procedure are verified. Fire risk assessed and is not applicable. Implants: are not applicable. Sign Out: Specimens not collected. All instruments, equipment, possible retained foreign bodies are accounted for. Yes. The post-procedure plan of care has been communicated to the patient or surrogate. Current Injection Note Type of neurotoxin: Botox: J0585 Total amount drawn: 300 units Total amount injected: 290 units Total amount wasted: 10 units Dilution: NS 1:1 Administered with EMG guidance: Yes Injection Site: Cervical dystonia: CPT 61286 Left Right Sternocleidomastoid 30 units 30 units Splenius capitus 20 units 20 units Scalene 10 units 10 units Levator Scapulae 25 units 35 units Trapezius 35 units over 2 sites 35 units over 2 sites Semispinalis 25 units 25 units (Other) Lot#: [id number] Exp Date 08/2027 Future plan of care: Follow up: 3 months Neurotoxin change: No Dose change: No Reason(s) for changing neurotoxin type of dose: n/a Sent staff message to nursing related to any changes: No Donte Paulino MD documented in this encounter [facility] 07-29-2025 Instructions Hawa Lynn MD - 07/29/2025 4:01 PM EDT Your doctor has recommended the following testing, instructions for scheduling are below: - MRI: Please call [phone] to schedule, or use the scheduling ticket in [facility] - Lab Testing (blood draw): Any [facility] lab at any time documented in this encounter [facility] 07-29-2025 Note Date of Procedure 07/29/2025. Ripening Room Hand Information Reprint Sorter: CINDY. Start time: 2:15 PM. Stop time: 2:30 PM. Reliability Right Eye Borderline. Left Eye Borderline. Interpretation Right Eye Normal. Left Eye Nasal step defect, Altitudinal defect (sup); Comments: (Arcuate defect:inf). Interval Change Right Eye Initial. Left Eye Initial. [facility] 07-29-2025 Note Date of Procedure 07/29/2025. Ripening Room Hand Information Reprint Sorter: deandre. Start time: 2:37 PM. Stop time: 2:52 PM. Quality Right Eye Good. Left Eye Borderline. NFL Interpretation Right Eye Normal. Left Eye Superior loss, Inferior loss. Ganglion Cell Layer Thickness Left Eye Inferior loss. Interval Change Right Eye Initial. Left Eye Initial. [facility] 07-29-2025 Note HNO ID: [id number] Author: HAWA LYNN MD Service: ? Author Type: Physician Type: Progress Notes Filed: 07/29/2025 17:08 Note Text: New patient referred by Dr. Angelika Gilman Course / HPI: - 12/2024 optic nerve atrophy OS seen on exam by outside food service lead; patient asymptomatic - +pulsatile tinnitus left eye for past 3-4 years Medical Hx: T2DM (on insulin), HTN, cervical dystonia (receives Botox q3mo with success x8y, follows with Dr. Paulino [facility]) Recent Neuro-Imaging: - MRI orbit w/wo (03/06/25): OSH - read only available AND brought by patient: +left optic atrophy, mild cortial FLAIR hyperintensity in both mesial temporal lobes and posterior limbic areas without associated DW hyperineinsity or enhancement. Ddx includes autoimmune encephalitis, neurosarcoidosis, and steroid responsive encephalopathy among others based on clinical scenario Lab Workup: - none EXAM: - Pupils: +APD OS - Colors (Ishihara): full both eyes - MRD1: symmetric both eyes - MRD2: symmetric both eyes - Ortho - EOM: full both eyes; no pain with eye movement - Nystagmus: tr end gaze nystagmus in far horizontal gaze - V1,2,3 normal and symmetric - Normal and symmetric upper and lower facial movement - Denies imbalance, vertigo, dizziness, tinnitus - Normal and symmetric shoulder shrug - Normal XII HVF 07/29/25 sup altitudinal defect, inf arcuate OCT NFL OD nl; OS diffuse thinning worse inf vs sup ASSESSMENT/PLAN Last dilated fundus exam: July 29, 2025 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) H53.40 Visual field defect Comment: - cupping with loss of rim and associated visual field defect as well as pallor - MRI with concern for inflammatory changes but no images for review and now ~6months ago - could represent glaucomatous changes and history of uveitis vs NAION - by last MRI no signs of compressive disease - patient does not notice his vision changes / visual field defect at all - Intraocular pressure is normal today and clinical exam is without signs of current or prior inflammation - fellow eye is not a disc at risk - recommend: repeat MRI brain and orbits WWO; CBC, CMP; syphilis; TB; NISHANT - will follow results Z96.1 Pseudophakia of both eyes Comment: stable/obs E11.9 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 I have seen and examined Jose Enriquez. I have discussed the case and the management of this patient's care with the Resident/Fellow, if applicable. I also have reviewed and agree with the assessment and plan as stated above and agree with all of its relevant components. [facility] 07-29-2025 History of Present illness Narrative New patient referred by Dr. Angelika Gilman Course / HPI: - 12/2024 optic nerve atrophy OS seen on exam by outside food service lead; patient asymptomatic - +pulsatile tinnitus left eye for past 3-4 years Medical Hx: T2DM (on insulin), HTN, cervical dystonia (receives Botox q3mo with success x8y, follows with Dr. Paulino [facility]) Recent Neuro-Imaging: - MRI orbit w/wo (03/06/25): OSH - read only available & brought by patient: +left optic atrophy, mild cortial FLAIR hyperintensity in both mesial temporal lobes and posterior limbic areas without associated DW hyperineinsity or enhancement. Ddx includes autoimmune encephalitis, neurosarcoidosis, and steroid responsive encephalopathy among others based on clinical scenario Lab Workup: - none EXAM: - Pupils: +APD OS - Colors (Ishihara): full both eyes - MRD1: symmetric both eyes - MRD2: symmetric both eyes - Ortho - EOM: full both eyes; no pain with eye movement - Nystagmus: tr end gaze nystagmus in far horizontal gaze - V1,2,3 normal and symmetric - Normal and symmetric upper and lower facial movement - Denies imbalance, vertigo, dizziness, tinnitus - Normal and symmetric shoulder shrug - Normal XII HVF 07/29/25 sup altitudinal defect, inf arcuate OCT NFL OD nl; OS diffuse thinning worse inf vs sup ASSESSMENT/PLAN Last dilated fundus exam: July 29, 2025 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) H53.40 Visual field defect Comment: - cupping with loss of rim and associated visual field defect as well as pallor - MRI with concern for inflammatory changes but no images for review and now ~6months ago - could represent glaucomatous changes and history of uveitis vs NAION - by last MRI no signs of compressive disease - patient does not notice his vision changes / visual field defect at all - Intraocular pressure is normal today and clinical exam is without signs of current or prior inflammation - fellow eye is not a disc at risk - recommend: repeat MRI brain and orbits WWO; CBC, CMP; syphilis; TB; NISHANT - will follow results Z96.1 Pseudophakia of both eyes Comment: stable/obs E11.9 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 I have seen and examined Jose Enriquez. I have discussed the case and the management of this patient's care with the Resident/Fellow, if applicable. I also have reviewed and agree with the assessment and plan as stated above and agree with all of its relevant components. documented in this encounter [facility] 06-30-2025 Note HNO ID: [id number] Author: HILARIO RIDDLE, ? Service: ? Author Type: Physician Type: Progress Notes Filed: 06/30/2025 10:17 Note Text: Initial Office Visit Subjective: This 79 year old male presents to clinic for diabetic foot check. Patient admits to being diabetic for multiple years now. Patient +B/T/N in feet at this time. Patient -pain in legs when walking. No other pedal complaints at this time. No change in medications or medical history since last visit. PAIN EVALUATION No data found in the last 1 encounters. No results found for: HBA1C PCP: EMILIANO Gonzalez PAST MEDICAL HISTORY[1] CURRENT MEDICATIONS[2] ALLERGIES[3] PAST SURGICAL HISTORY Procedure Laterality Date ANKLE RIGHT OP SURGERY FAMILY HISTORY[4] SOCIAL HISTORY[5] REVIEW OF SYSTEMS GENERAL: Negative for Malaise, [...] Objective: Patient presents to clinic ambulating in [facility] Constitutional: Pt is a well developed 79 [...] the 5.07 SWM bilateral. Vibratory sensation is mostly intact at the hallux bilateral. No Significant neurological defecits. Derm: Inspection and palpation performed. Nails 1-5 b/l are discolored-yellow, thick, crumbly, dystrophic and with subungal debris. Skin is of normal turgor and texture. Callus present to 2nd toe NO ulcerations, scars, verruca or other lesions noted. Ortho: Ankle joint DF is full with the knee extended and full with knee flexed. No pain or crepitus noted. STJ, MTJ ROM are full and free of pain or crepitus. Muscle strength is 5/5 for dorsiflexors, plantarflexors, inverters, everters. Digital deformities include bunion deformity right. Hammertoes of b/l 2nd toe Assessment: (E11.42) Diabetic polyneuropathy associated with type 2 diabetes mellitus (HCC) (primary encounter diagnosis) (M20.11) Hallux valgus of right foot (M20.41) Hammer toe of right foot (B35.1) Onychomycosis (L84) Callus of foot Plan: 1. Patient was seen and evaluated. 2. Patient was instructed on the continued importance of diabetic foot care along with proper diet and keeping their blood sugar under control to prevent complications. Instructions given both oral and written. 3. Toenails 1-5 b/l debrided in length and thickness. Discussed criteria for nail care 4. Discussed bunion of right foot. Recommend wider shoes, ones, that help to avoid rubbing on his bunion. 5. Callus reduced with dremmel to 2nd toe. 6. Discussed presence of hammertoe/bunion in presence of neuropathy with callus formation. Recommend diabetic shoe Hilario Riddle DPM [1] Past Medical History: No date: Cancer (HCC) No date: Diabetes (HCC) No date: Hypothyroidism [2] Current Outpatient Medications Medication Sig simvastatin (ZOCOR) [...] (3 mL) INJECT 14 UNITS SUBCUTANEOUSLY DAILY OTC PRODUCT MELATONIN, ALLERGY RELIEF PROSTATE HEALTH JOINT/ MUSCLE SUPPORT V-8 WITH GARLIC, OLIVE OIL, CAYENNE PEPPER, LEMON, TURMERIC onabotulinum toxin type A (BOTOX) 100 unit solr Inject up to 300 units IM in office by neurologist every 3 months. ONETOUCH DELICA PLUS LANCET 30 gauge USE TO TEST BLOOD SUGARS DAILY ACCU-CHEK SOFTCLIX LANCETS BD INSULIN SYRINGE ULTRA-FINE 1 mL 31 gauge x 5/16 propranolol ER (INDERAL LA) 60 mg 24 hr capsule Take 1 capsule by mo (more content not included)... [facility] 06-30-2025 History of Present illness Narrative Initial Office Visit Subjective: This 79 year old male presents to clinic for diabetic foot check. Patient admits to being diabetic for multiple years now. Patient +B/T/N in feet at this time. Patient -pain in legs when walking. No other pedal complaints at this time. No change in medications or medical history since last visit. PAIN EVALUATION No data found in the last 1 encounters. No results found for: HBA1C PCP: EMILIANO Gonzalez PAST MEDICAL HISTORY[1] CURRENT MEDICATIONS[2] ALLERGIES[3] PAST SURGICAL HISTORY Procedure Laterality Date ANKLE RIGHT OP SURGERY FAMILY HISTORY[4] SOCIAL HISTORY[5] REVIEW OF SYSTEMS GENERAL: Negative for Malaise, [...] Objective: Patient presents to clinic ambulating in [facility] Constitutional: Pt is a well developed 79 [...] the 5.07 SWM bilateral. Vibratory sensation is mostly intact at the hallux bilateral. No Significant neurological defecits. Derm: Inspection and palpation performed. Nails 1-5 b/l are discolored-yellow, thick, crumbly, dystrophic and with subungal debris. Skin is of normal turgor and texture. Callus present to 2nd toe NO ulcerations, scars, verruca or other lesions noted. Ortho: Ankle joint DF is full with the knee extended and full with knee flexed. No pain or crepitus noted. STJ, MTJ ROM are full and free of pain or crepitus. Muscle strength is 5/5 for dorsiflexors, plantarflexors, inverters, everters. Digital deformities include bunion deformity right. Hammertoes of b/l 2nd toe Assessment: (E11.42) Diabetic polyneuropathy associated with type 2 diabetes mellitus (HCC) (primary encounter diagnosis) (M20.11) Hallux valgus of right foot (M20.41) Hammer toe of right foot (B35.1) Onychomycosis (L84) Callus of foot Plan: 1. Patient was seen and evaluated. 2. Patient was instructed on the continued importance of diabetic foot care along with proper diet and keeping their blood sugar under control to prevent complications. Instructions given both oral and written. 3. Toenails 1-5 b/l debrided in length and thickness. Discussed criteria for nail care 4. Discussed bunion of right foot. Recommend wider shoes, ones, that help to avoid rubbing on his bunion. 5. Callus reduced with dremmel to 2nd toe. 6. Discussed presence of hammertoe/bunion in presence of neuropathy with callus formation. Recommend diabetic shoe Hilario Riddle DPM [1] Past Medical History: No date: Cancer ([facility]) No date: Diabetes ([facility]) No date: Hypothyroidism [2] Current Outpatient Medications Medication Sig simvastatin (ZOCOR) [...] (3 mL) INJECT 14 UNITS SUBCUTANEOUSLY DAILY OTC PRODUCT MELATONIN, ALLERGY RELIEF PROSTATE HEALTH JOINT/ MUSCLE SUPPORT V-8 WITH GARLIC, OLIVE OIL, CAYENNE PEPPER, LEMON, TURMERIC onabotulinum toxin type A (BOTOX) 100 unit solr Inject up to 300 units IM in office by neurologist every 3 months. ONETOUCH DELICA PLUS LANCET 30 gauge USE TO TEST BLOOD SUGARS DAILY ACCU-CHEK SOFTCLIX LANCETS BD INSULIN SYRINGE ULTRA-FINE 1 mL 31 [...] No current facility-administered medications for this visit. [3] Allergies Allergen Reactions Propranolol Diarrhea, Vomiting, Other: See Comments [4] No family history on file. [5] Social History Tobacco Use Smoking status: Never Smokeless tobacco: Never Vaping Use Vaping status: Never Used Substance Use Topics Alcohol use: Never Drug use: Never AMB ROOMING INTAKE FLOWSHEET DATA Patient presents with: Left Foot - Established Patient Right Foot - Established Patient documented in this encounter [facility] 06-28-2025 Instructions Hilario Riddle - 06/28/2025 3:34 PM EDT Diabetes Foot Care Instructions When you have [...] (or decreased sensation in your feet) a sub plant manager should always cut your toenails. Be Careful [...] Go to your health care provider or sub plant manager to treat these conditions. documented in this encounter [facility] 06-28-2025 Note HNO ID: [id number] Author: CRISTAL FARIA, ZACH Service: ? Author Type: Registered Nurse Type: Progress Notes Filed: 06/30/2025 10:17 Note Text: AMB ROOMING INTAKE FLOWSHEET DATA Patient presents with: Left Foot - Established Patient Right Foot - Established Patient [facility] 06-12-2025 Instructions Donte Paulino MD - 06/12/2025 12:20 PM EDT Lets submit for Botox authorization. documented in this encounter [facility] 06-12-2025 Note HNO ID: [id number] Author: DONTE PAULINO MD Service: ? Author Type: Physician Type: Progress Notes Filed: 06/12/2025 22:46 Note Text: FOLLOW UP NOTE Subjective Jose Enriquez is a 79 year old male who presents for follow up. CC: Head tremor Summary of prior care: 11/2024 right-handed male with a history of DM, tremor, and HTN who presents for evaluation of head tremor. His examination demonstrates head tremor. Explained strong family history of head / [...] get records from his Botox treatments from [facility]. He will let me know in interim how 60 mg is doing and if no benefit or side effects would increase to 120 mg, and submit Botox for next visit. HPI Current Issues - Had bad reaction to propranolol, diarrhea - Tremor unchanged - Interested in resuming botox Current Outpatient Medications Medication Sig Dispense Refill OTC PRODUCT MELATONIN, ALLERGY RELIEF PROSTATE HEALTH JOINT/ MUSCLE SUPPORT V-8 WITH GARLIC, OLIVE OIL, CAYENNE PEPPER, LEMON, TURMERIC simvastatin (ZOCOR) 10 mg tablet Take 10 mg by mouth every evening. lisinopril (ZESTRIL) 10 mg tablet Take 1 tablet by mouth every afternoon. levothyroxine (SYNTHROID) 88 mcg tablet Take 1 tablet by mouth every afternoon. ONETOUCH DELSleep HealthCenters PLUS LANCET 30 gauge USE TO TEST BLOOD SUGARS DAILY ACCU-CHEK SOFTCLIX LANCETS LANTUS SOLOSTAR U-100 INSULIN 100 unit/mL (3 mL) INJECT 30 UNITS BY SUBCUTANEOUS ROUTE ONCE DAILY NOVOLOG FLEXPEN U-100 INSULIN 100 unit/mL (3 mL) INJECT 14 UNITS SUBCUTANEOUSLY DAILY BD INSULIN SYRINGE ULTRA-FINE 1 mL 31 gauge x /16 propranolol ER (INDERAL LA) 60 mg 24 hr capsule Take 1 capsule by mouth once daily. (Patient not taking: Reported on 12/24/2024) 90 capsule 1 propranolol (INDERAL) 10 mg tablet Take 1 pill twice a day for a week, then 2 pills twice a day for a week, then change to the 60 mg once a day pill thereafter. (Patient not taking: Reported on 12/24/2024) 42 tablet 0 No current facility-administered medications for this visit. Objective OBJECTIVE 06/12/25 1203 BP: 117/71 BP Site: Left Arm BP Position: Sitting BP Cuff Size: Large Adult Pulse: 65 SpO2: 95% Weight: 105.8 kg (233 lb 4 oz) Height: 172.7 cm (5' 8) General: General Appearance: Well appearing, alert, in no acute distress, well-hydrated, well nourished. Head: Normocephalic Neck: Supple Heart: RRR Neurologic Exam: Mental Status: He is alert. He is fully oriented. Attention is intact. Memory is intact. Language shows normal comprehension and fluency. Affect is appropriate. Cranial Nerves: Extraocular movements show full and smooth pursuits. No nystagmus. Visual ho are full to confrontation. Facial activation is symmetric. Hearing is intact to conversation. There is no hypomimia. There is no hypophonia. There is no dysarthria. Tongue is midline. Palate elevates symmetrically. Shoulder shrug is normal. Normal neutral head position, maybe very slight right head tilt. Baseline tremor sort of rotary Y-Y. No tremor with tilt to left or right. With turn either direction initially no tremor then after a few seconds Y-Y tremor emerges. a Motor: Muscle bulk is normal. Rapid alternating movements are normal. Muscle power is full. Coordination: Finger to nose is smooth without ataxia. Gait/station: Normal DATA REVIEW Actual films/image/tracing reviewed and summarized as follows: n/a Old records reviewed and summarized as follows: Assessment/Plan ASSESSMENT AND PLAN: Jose Enriquez is a 79 year old male with a history of DM, tremor, and HTN who presents for follow up of head tremor. His examination demonstrates head tremor. 1. 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 Diagnosis: Cervical dystonia (G24.3) Current Examination: See above Special Features: Head tremor Functional Limitations: 2(moderate) Pain: No Date of Diagnosis: 11/2024 with me Estimated Duration of treatment: Will reassess after 1year Frequency of treatment: 90days What other treatments have been tried and failed: Medications propranolol Next Appointment Notes: Send Staff Message to RN to start process for neurotoxin prior authorization. Procedure Note: Cervical dystonia Neurotoxin: Yes Botox: J0585 Dose: 300 units Administered with EMG guidance: Yes Follow-up: ~1 month Risks AND Side Effects of Newly Prescribed Medication, Discussed with Patient: YES Donte Paulino MD (more content not included)... [facility] 06-12-2025 History of Present illness Narrative Images from the original note were not included. FOLLOW UP NOTE Subjective Jose Enriquez is a 79 year old male who presents for follow up. CC: Head tremor Summary of prior care: 11/2024 right-handed male with a history of DM, tremor, and HTN who presents for evaluation of head tremor. His examination demonstrates head tremor. Explained strong family history of head / [...] get records from his Botox treatments from [facility]. He will let me know in interim how 60 mg is doing and if no benefit or side effects would increase to 120 mg, and submit Botox for next visit. HPI Current Issues - Had bad reaction to propranolol, diarrhea - Tremor unchanged - Interested in resuming botox Current Outpatient Medications Medication Sig Dispense Refill OTC PRODUCT MELATONIN, ALLERGY RELIEF PROSTATE HEALTH JOINT/ MUSCLE SUPPORT V-8 WITH GARLIC, OLIVE OIL, CAYENNE PEPPER, LEMON, TURMERIC simvastatin (ZOCOR) 10 mg tablet Take 10 [...] (3 mL) INJECT 14 UNITS SUBCUTANEOUSLY DAILY BD INSULIN SYRINGE ULTRA-FINE 1 mL 31 gauge x 04/05 propranolol ER (INDERAL LA) 60 mg 24 hr capsule Take 1 capsule by mouth once daily. (Patient not taking: Reported on 12/24/2024) 90 capsule 1 propranolol (INDERAL) 10 mg tablet Take 1 pill twice a day for a week, then 2 pills twice a day for a week, then change to the 60 mg once a day pill thereafter. (Patient not taking: Reported on 12/24/2024) 42 tablet 0 No current facility-administered medications for this visit. Objective OBJECTIVE 06/12/25 1203 BP: 117/71 BP Site: Left Arm BP Position: Sitting BP Cuff Size: Large Adult Pulse: 65 SpO2: 95% Weight: 105.8 kg (233 lb 4 oz) Height: 172.7 cm (5' 8) General: General Appearance: Well appearing, alert, in no acute distress, well-hydrated, well nourished. Head: Normocephalic Neck: Supple Heart: RRR Neurologic Exam: Mental Status: He is alert. He is fully oriented. Attention is intact. Memory is intact. Language shows normal comprehension and fluency. Affect is appropriate. Cranial Nerves: Extraocular movements show full and smooth pursuits. No nystagmus. Visual ho are full to confrontation. Facial activation is symmetric. Hearing is intact to conversation. There is no hypomimia. There is no hypophonia. There is no dysarthria. Tongue is midline. Palate elevates symmetrically. Shoulder shrug is normal. Normal neutral head position, maybe very slight right head tilt. Baseline tremor sort of rotary Y-Y. No tremor with tilt to left or right. With turn either direction initially no tremor then after a few seconds Y-Y tremor emerges. a Motor: Muscle bulk is normal. Rapid alternating movements are normal. Muscle power is full. Coordination: Finger to nose is smooth without ataxia. Gait/station: Normal DATA REVIEW Actual films/image/tracing reviewed and summarized as follows: n/a Old records reviewed and summarized as follows: Assessment/Plan ASSESSMENT & PLAN: Jose Enriquez is a 79 year old male with a history of DM, tremor, and HTN who presents for follow up of head tremor. His examination demonstrates head tremor. 1. 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 Diagnosis: Cervical dystonia (G24.3) Current Examination: See above Special Features: Head tremor Functional Limitations: 2(moderate) Pain: No Date of Diagnosis: 11/2024 with me Estimated Duration of treatment: Will reassess after 1year Frequency of treatment: 90days What other treatments have been tried and failed: Medications propranolol Next Appointment Notes: Send Staff Message to RN to start process for neurotoxin prior authorization. Procedure Note: Cervical dystonia Neurotoxin: Yes Botox: [id number] Dose: 300 units Administered with EMG guidance: Yes Follow-up: ~1 month Risks & Side Effects of Newly Prescribed Medication, Discussed with Patient: YES Donte Paulino MD [facility] Neurology documented in this encounter [facility] 06-10-2025 Evaluation note Diagnosis Onset Date Resolution Degenerative joint disease of elbow, right acute May 1:26pm Loose body in elbow joint acute June 10, 2025 1:26pm [facility] Work Phone: 1(501) 716-290607-20-2025 Discharge summary [facility] Medical Records Department [address] [place] [address] Emergency Department Summary 06/09/25 MR#: [id number] Acct: [id number] Name: JOSE ENRIQUEZ Rep #:[id number] : 1945 79 From: Doroteo Bermudez MD PCP: TONO Gonzalez Status:REG ER Location: ED HPI History of Present Illness HPI Narrative: 79-year-old male history of diabetes. Jrijb-chwd-vqqpngef. Atraumatic right elbow pain since last progressively getting worse. Swollen and red. Tender. Hurts to do range of motion. Denies any prior surgery to this elbow. Denies any recent fall or trauma. No prior history of elbow pain likethis before. Chief Complaint: Upper Extremity Injury Informant: patient and spouse/S.O. Onset/Context/Timing Onset: Days Context: Gradual Onset Timing: Continuous Quality of Pain: Sharp Current Severity: Moderate Maximum Severity: Moderate Associated Symptoms Associated Symptoms: Negative for Parasthesia, Weakness or Loss of Funtion Narrative Narrative: 79-year-old male atraumatic right elbow pain and swelling. History of diabetes. Snumq-tnws-zxzagqug. No prior surgery to the elbow. Prior similar symptoms: No Recent Illness/Hospitalization: No PFSH PFSH Home Medications ?Medication ?Instructions ?Recorded ?Last Taken ?Type amino ac-vit E-Dw-lvwvluaa-hb9 See Rx Instructions PO .COMPLEX 10/29/24 Unknown History tablet insulin aspart U-100 100 unit/mL 1 sliding scale dose subcut 10/29/24 Unknown History (3 mL) subcutaneous pen (Novolog .COMPLEX FlexPen U-100 Insulin aspart) insulin glargine 100 unit/mL (3 35 unit subcut QPM 08/14 Unknown History mL) subcutaneous pen (Lantus Solostar U-100 Insulin) levothyroxine 88 mcg tablet 88 mcg PO QDAY 10/29/24 Un known History lisinopril 10 mg tablet 10 mg PO QDAY 10/29/24 Unkno wn History saw palmetto 160 1 cap PO QDAY 10/29/24 Unkno wn History sb-Cbzjxs-tidpfntfs-beta ijxxqavjgy-R1-ehge capsule simvastatin 10 mg tablet 10 mg PO QHS 10/29/24 Unknow n History Allergy/AdvReac Type Severity Reaction Status Date / Time No Known Allergies Allergy Verified 06/09/25 16:48 Family History Mother , Passed in 80's No problems noted. Father , 70's Heart disease Myocardial infarction CHF (congestive heart failure) Surgical History History of ankle surgery Social History household members: significant other current occupational status: retired Smoking Status: Never smoker alcohol intake: never caffeine: Yes (On avg 3 cups daily) Type: coffee EXAM Physical Exam Const Vital Signs: 06/09/25 16:47 06/09/25 16:55 Temperature 96.9 F L 96.9 F L Temperature Source Temporal Temporal Pulse Rate 73 73 Respiratory Rate 20 H 20 H Blood Pressure 125/75 H 125/75 H Blood Pressure Mean 91 91 Pulse Ox 99 99 Oxygen Delivery Method Room Air Room Air MDM MDM MDM Narrative Medical decision making narrative: 71-year-old male atraumatic right elbow pain and swelling concern for septic joint versus gout versus other etiologies. No history of trauma. X-ray and labs. Will consult orthopedics. Clean the patient's right elbow off with alcohol swabs and then iodine. I did alateral approach to his elbow and was unable to obtain any fluid. He tolerated it well. He will be given some morphine for pain. I have orthopedics on page. Dr. Pearce of orthopedics came and evaluated the patient. He believes this is secondary to arthritis. He will follow him up in his office. Ice. Motrin for pain and inflammation. Follow-up with Dr. Castillo. Return if increasing pain, redness or fever. History & Record Review Discussion w/independent historian: Patient and Family Lab Data Attestation: I reviewed the patient's lab results. Lab results narrative: CBC shows a white 11.7. H&H 14 and 42. Platelets 257. Electrolytes show gap 12. BUN and creatinine 21 and 1. Uric acid is 4.7. CRP is 3.6 and sed rate is only 11. Right elbow x-ray shows no acute process. Radiography Diagnostic Testing: Right elbow x-ray, 4 views, interpreted by myself and the radiologist shows chronic changes. Arthritis. No fracture. No dislocation. Possible soft tissue swelling with small effusion. Discharge Plan Triage Chief Complaint: Upper Extremity Injury ED Provider: Doroteo Bermudez Dx/Rx/DC Orders Clinical Impression: Elbow pain, History of diabetes mellitus Instructions: ED Arthralgia, ED Osteoarthritis Prescriptions: No Action lisinopril 10 mg tablet 10 mg PO QDAY levothyroxine 88 mcg tablet 88 mcg PO QDAY simvastatin 10 mg tablet 10 mg PO QHS insulin glargine [Lantus Solostar U-100 Insulin] 100 unit/mL (3 mL) insulin pen 35 unit subcut QPM insulin aspart U-100 [Novolog FlexPen U-100 Insulin] 100 unit/mL (3 mL) insulin pen 1 sliding scale dose subcut .COMPLEX Rx Instructions: 1 sliding scale dose subcutaneously 10-20 Units after meals as needed; amino ac-vit R-Nq-yesumpgs-hb9 Tablet See Rx Instructions PO .COMPLEX Rx Instructions: orally Force factor prostate daily; jot-Qjvzdt-opusu-gxajc-D0-rzak [id number] mg capsule 1 cap PO QDAY Primary Care Provider: Estrella Arias Referrals: Erick Pearce DO [Med Staff - Active Staff] - As soon as possible Care Physician,No Primary [Non-Staff] - Activity Restrictions/Additional Instructions: Ice your elbow to decrease pain and swelling. Motrin for pain and swelling and Tylenol. Call and follow-up with the orthopedic physician Dr. Grace to have this reevaluated tomorrow or Tuesday. If it is getting a lot worse increasing pain increasing swelling increasing redness or fever just return to the emergency department. The orthopedic physician believes this is secondary to arthritis. Print Language: [place] Disposition Disposition: Home, Self Care What to do if you have Problems For any increased pain, shortness of breath, bleeding, nausea or vomiting, chestpain, or any unexpected problems, contact your Primary Care Provider. Call [facility] ([phone]) or report tothe closest Emergency Room. Call 911 if necessary. 06/09/252053 Cosigner Signature (if applicable): CC: TONO Arias ~ Signed [facility]07-20-2025 Consult note [facility] Medical Records Department [address] [place] [address] Consultation 06/09/252042 MR#: [id number] Acct: [id number] Name: OJSE ENRIQUEZ Rep #:[id number] : 1945 79 From: Erick Pearce DO PCP: TONO Gonzalez Status:REG ER Location: ED Assessment & Plan Assessment/Plan (1) Degenerative joint disease of elbow, right: (2) Loose body in elbow joint: QUALIFIERS: Laterality: right Qualified Code(s): M24.021 - Loose body in right elbow PLAN: Plan Atraumatic right elbow pain 79-year-old male diabetic no recent infection feverschills malaise, afebrile on admission essentially normal white blood cell count ESR CRP, dry tap aspirate performed by ER physician, no joint effusion on x-ray or physical exam to warrant second aspiration. X-ray does demonstrate significant elbow arthrosis as well as multiple loose bodies which I believe arecausing ablock in his motion and causing him to significant pain. Would recommend anti-inflammatory medication for pain control we get an MRI on outpatient basis, we can repeat his labs outpatient as well to make sure there is no trending towards infection but I have low suspicion of this. He will likely need an arthroscopic removal of loose bodies which we can arrange in an outpatient basis. Patient in agreement with plan without any questions. HPI Consult Data Date of Consult: 06/09/25 HPI Narrative HPI Narrative: JOSE ENRIQUEZ, is a 79 M rhukd-udsn-yfntfylf diabetic no recent infections beganhaving elbow pain on the that worsened this morning when he awoke. Denies any fever chills or malaise no trauma. Was consulted by the emergency room for concern for septic elbow. He did have an attempted aspirationby the emergency room physician which proved to be a dry tap he did have x-rays which demonstrated elbow arthrosis and multiple loose bodies no effusion. PFSH Home Medications ?Medication ?Instructions ?Recorded ?Last Taken ?Type amino ac-vit P-Mu-zihzcfsn-hb9 See Rx Instructions PO .COMPLEX 10/29/24 Unknown History tablet insulin aspart U-100 100 unit/mL 1 sliding scale dose subcut 10/29/24 Unknown History (3 mL) subcutaneous pen (Novolog .COMPLEX FlexPen U-100 Insulin aspart) insulin glargine 100 unit/mL (3 35 unit subcut QPM 08/14 Unknown History mL) subcutaneous pen (Lantus Solostar U-100 Insulin) levothyroxine 88 mcg tablet 88 mcg PO QDAY 10/29/24 Un known History lisinopril 10 mg tablet 10 mg PO QDAY 10/29/24 Unkno wn History saw palmetto 160 1 cap PO QDAY 10/29/24 Unkno wn History sb-Gswrbq-ksjtainxj-beta wegpvisgdd-B3-lecy capsule simvastatin 10 mg tablet 10 mg PO QHS 10/29/24 Unknow n History Allergy/AdvReac Type Severity Reaction Status Date / Time No Known Allergies Allergy Verified 06/09/25 16:48 Family History Mother , Passed in 80's No problems noted. Father , 70's Heart disease Myocardial infarction CHF (congestive heart failure) Surgical History History of ankle surgery Social History household members: significant other current occupational status: retired Smoking Status: Never smoker alcohol intake: never caffeine: Yes (On avg 3 cups daily) Type: coffee Physical Exam Const alert, oriented x3 and no apparent distress General Appearance: cooperative and comfortable Extremity Extremity Narrative: Right elbow there is no erythema there is no significant soft tissue swelling there is no palpable joint effusion he does prefer to hold the elbow at 90 degrees however I can get him to extend to 45 and the flex to 95 he does feel like there is a block in his motion with attempted further active orpassive extension this is when his pain comes on the most he does not have significant pain with short arc movement however he does have pain with supination and pronation as well ranging about 45 degrees supination and pronation. He has an intact extensor tendon insect biceps tendon. There is no sign of collateral elbow instability Lab / Micro Data 06/09/25 17:15 06/09/25 17:15 Labs: Laboratory Results - last 24 hr 06/09/25 17:15: WBC 11.7 H, RBC 4.75, Hgb 14.6, Hct 42.7, MCV 89.9, MCH 30.7, MCHC 34.2, RDW Std Deviation 42.3, RDW Coeff of Kanika 12.8, Plt Count 257, MPV 9.5, Immature Gran % (Auto) 0.200, Neut % (Auto) 80.2 H, Lymph % (Auto) 9.6 L, O'Brien % (Auto) 8.3, Eos % (Auto) 1.4, Baso % (Auto) 0.3, Absolute Neuts (auto) 9.4 H, Absolute Lymphs (auto) 1.12, Nucleated RBC % 0, ESR 11, Sodium 135, Potassium 4.4, Chloride 102, Carbon Dioxide 21.7, Anion Gap 12, BUN 21 H, Creatinine 1.03, Estim Creat Clear Calc 69.53, Est GFR (MDRD) Non-Af 74, BUN/Creatinine Ratio 20.5 H, Glucose 202 H, Uric Acid 4.7, Calcium 9.2, C-React Prot Ext Range 3.64 H Imaging Radiology Impression Elbow X-Ray 06/09/25 17:25 IMPRESSION: Limited exam due to patient positioning, without definite displaced fracture. There is a questionable joint effusion with soft tissue swelling. Scattered calcifications may be degenerative or posttraumatic. Consider CT if there is concern for an acute osseous abnormality. Reading Location: [facility] Elbow X-Ray 06/09/25 20:05 IMPRESSION: No displaced fracture. There are scattered calcifications throughout the elbow joint which be posttraumatic or degenerative. Probable small joint effusion with posterior soft tissue swelling. Again consider CT if there is concern for an acute osseous abnormality. Reading Location: [facility] 06/09/252049 Cosigner Signature (if applicable): CC: TONO Arias; Dr. Doroteo Bermudez MD~ Signed [facility]07-20-2025 [facility] Medical Records Department [address] [place] [address] Consultation 06/09/252042 MR#: [id number] Acct: [id number] Name: JOSE ENRIQUEZ Rep #: [id number] : 1945 79 From: Erick Pearce DO PCP: TONO Gonzalez Status:REG ER Location: ED Assessment Plan Assessment/Plan (1) Degenerative joint disease of elbow, right: (2) Loose body in elbow joint: QUALIFIERS: Laterality: right Qualified Code(s): M24.021 - Loose body in right elbow PLAN: Plan Atraumatic right elbow pain 79-year-old male diabetic no recent infection fevers chills malaise, afebrile on admission essentially normal white blood cell count ESR CRP, dry tap aspirate performed by ER physician, no joint effusion on x-ray or physical exam to warrant second aspiration. 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 Would recommend anti- inflammatory medication for pain control we get an MRI on outpatient basis, we can repeat his labs outpatient as well to make sure there is no trending towards infection but I have low suspicion of this. He will likely need an arthroscopic removal of loose bodies which we can arrange in an outpatient basis. Patient in agreement with plan without any questions. HPI Consult Data Date of Consult: 06/09/25 HPI Narrative HPI Narrative: JOSE ENRIQUEZ, is a 79 M juuia-cjeg-ajwjjpzs diabetic no recent infections began having elbow pain on the 17th that worsened this morning when he awoke. Denies any fever chills or malaise no trauma. Was consulted by the emergency room for concern for septic elbow. He did have an attempted aspiration by the emergency room physician which proved to be a dry tap he did have x-rays which demonstrated elbow arthrosis and multiple loose bodies no effusion. PFSH Home Medications ???Medication ???Instructions ???Recorded ???Last Taken ???Type amino ac-vit Z-Iv-cgywgwlm-hb9 See Rx Instructions PO .COMPLEX Unknown History tablet insulin aspart U-100 100 unit/mL 1 sliding scale dose subcut Unknown History (3 mL) subcutaneous pen (Novolog .COMPLEX FlexPen U-100 Insulin aspart) insulin glargine 100 unit/mL (3 35 unit subcut QPM 10/29/24 Unknow n History mL) subcutaneous pen (Lantus Solostar U-100 Insulin) levothyroxine 88 mcg tablet 88 mcg PO QDAY 10/29/24 Unknown Hi story lisinopril 10 mg tablet 10 mg PO QDAY 10/29/24 Unknown His tory saw palmetto 160 1 cap PO QDAY 10/29/24 Unknown His tory oi-Jagqmt-dpyrwwstl-beta fxochwixpn-Y9-askb capsule simvastatin 10 mg tablet 10 mg PO QHS 10/29/24 Unknown Hist ory Allergy/AdvReac Type Severity Reaction Status Date / Time No Known Allergies Allergy Verified 06/09/25 16:48 Family History Mother , Passed in 80's No problems noted. Father , 70's Heart disease Myocardial infarction CHF (congestive heart failure) Surgical History History of ankle surgery Social History household members: significant other current occupational status: retired Smoking Status: Never smoker alcohol intake: never caffeine: Yes (On avg 3 cups daily) Type: coffee Physical Exam Const alert, oriented x3 and no apparent distress General Appearance: cooperative and comfortable Extremity Extremity Narrative: Right elbow there is no erythema there is no significant soft tissue swelling there is no palpable joint effusion he does prefer to hold the elbow at 90 degrees however I can get him to extend to 45 and the flex to 95 he does feel like there is a block in his motion with attempted further active or passive extension this is when his pain comes on the most he does not have significant pain with short arc movement however he does have pain with supination and pronation as well ranging about 45 degrees supination and pronation. He has an intact extensor tendon insect biceps tendon. There is no sign of collateral elbow instability Lab / Micro Data 06/09/25 17:15 06/09/25 17:15 Labs: Laboratory Results - last 24 hr 06/09/25 17:15: WBC 11.7 H, RBC 4.75, Hgb 14.6, Hct 42.7, MCV 89.9, MCH 30.7, MCHC 34.2, RDW Std Deviation 42.3, RDW Coeff of Kanika 12.8, Plt Count 257, MPV 9.5, Immature Gran % (Auto) 0.200, Neut % (Auto) 80.2 H, Lymph % (Auto) 9.6 L, O'Brien % (Auto) 8.3, Eos % (Auto) 1.4, Baso % (Auto) 0.3, A bsolute Neuts (auto) 9.4 H, Absolute Lymphs (auto) 1.12, Nucleated RBC % 0, ESR 11, Sodium 135, Potassium 4.4, Chloride 102, Carbon Dioxide 21.7, Anion Gap 12, BUN 21 H, Creatinine 1.03, Estim Creat Clear Calc 69.53, Est GFR (MDRD) Non-Af 74, B (more content not included)...[facility]07-20-2025 Radiology Diagnostic study note [facility] Imaging Services [address] [place] [address] Elbow 2 Views MR#: [id number] Acct: [id number] Name: JOSE ENRIQUEZ Rep #: [id number] : 1945 M 79 From: Yue Fishman MD PCP: BRAD GonzalezC Status: REG ER Study:Elbow 2 Views Date of Exam: Exam# [id number] Ordering Dr: Erick Pearce DO PROCEDURE: ELBOW 2 VIEWS 06/09/2025 REASON FOR EXAM: REPEAT DUE TO BLURRY IMAGE TECHNIQUE: Lateral view of the right elbow COMPARISON: Right elbow radiographs 06/09/2025 FINDINGS: See below RAD/Elbow 2 Views IMPRESSION: No displaced fracture. There are scattered calcifications throughout the elbow joint which be posttraumatic or degenerative. Probable small joint effusion with posterior soft tissue swelling. Again consider CT if there is concern for an acute osseous abnormality. Reading Location: [facility] CC: TEMPLATE CHECKER-C Estrella Arias; Dr. Erick Pearce DO ~ Licensed Insurance Agent: Signed [facility]07-20-2025 Radiology Diagnostic study note [facility] Imaging Services [address] [place] [address] Elbow min 3 Views MR#: [id number] Acct: [id number] Name: JOSE ENRIQUEZ Rep #: [id number] : 1945 M 79 From: Yue Fishman MD PCP: TONO Gonzalez Status: REG ER Study:Elbow min 3 Views Date of Exam: Exam# [id number] Ordering Dr: Reji Bermudez MD PROCEDURE: ELBOW MIN 3 VIEWS 06/09/2025 REASON FOR EXAM: ATRAUMATIC RIGHT ELBOW PAIN TECHNIQUE: ELBOW MIN 3 VIEWS COMPARISON: None FINDINGS: There are scattered calcifications in the anterior elbow and a questionable small joint effusion. No definite evidence of a displaced fracture, though evaluation is limited due to patient positioning, particularly of the radial head. There is joint space narrowing throughout the elbow. Mild posterior soft tissue swelling. RAD/Elbow min 3 Views IMPRESSION: Limited exam due to patient positioning, without definite displaced fracture. There is a questionable joint effusion with soft tissue swelling. Scattered calcifications may be degenerative or posttraumatic. Consider CT if there is concern for an acute osseous abnormality. Reading Location: [facility] CC: TEMPLATE CHECKER-C Estrella Arias; Dr. Doroteo Bermudez MD ~ Licensed Insurance Agent: Signed [facility]07-20-2025 Discharge summary Author Doroteo Bermudez [facility] Note Date/Time June 09, 2025 8:54 pm [facility] Medical Records Department [address] [place] [address] Emergency Department Summary 06/09/25 MR#: [id number] Acct: [id number] Name: JOSE ENRIQUEZ Rep #:[id number] : 1945 79 From: Doroteo Bermudez MD PCP: TONO Gonzalez Status:REG ER Location: ED HPI History of Present Illness HPI Narrative: 79-year-old male history of diabetes. Qrgkh-zopb-mtlkqsgs. Atraumatic right elbow pain since last progressively getting worse. Swollen and red. Tender. Hurts to do range of motion. Denies any prior surgery to this elbow. Denies any recent fall or trauma. No prior history of elbow pain like this before. Chief Complaint: Upper Extremity Injury Informant: patient and spouse/S.O. Onset/Context/Timing Onset: Days Context: Gradual Onset Timing: Continuous Quality of Pain: Sharp Current Severity: Moderate Maximum Severity: Moderate Associated Symptoms Associated Symptoms: Negative for Parasthesia, Weakness or Loss of Funtion Narrative Narrative: 79-year-old male atraumatic right elbow pain and swelling. History of diabetes. Nhplz-qplp-aziprwvu. No prior surgery to the elbow. Prior similar symptoms: No Recent Illness/Hospitalization: No PFSH PFSH Home Medications ?Medication ?Instructions ?Recorded ?Last Taken ?Type amino ac-vit M-Wv-upgctskm-hb9 See Rx Instructions PO .COMPLEX 10/29/24 Unknown History tablet insulin aspart U-100 100 unit/mL 1 sliding scale dose subcut 10/29/24 Unknown History (3 mL) subcutaneous pen (Novolog .COMPLEX FlexPen U-100 Insulin aspart) insulin glargine 100 unit/mL (3 35 unit subcut QPM 08/14 Unknown History mL) subcutaneous pen (Lantus Solostar U-100 Insulin) levothyroxine 88 mcg tablet 88 mcg PO QDAY 10/29/24 Un known History lisinopril 10 mg tablet 10 mg PO QDAY 10/29/24 Unkno wn History saw palmetto 160 1 cap PO QDAY 10/29/24 Unkno wn History uc-Nbturq-mybubkbnm-beta mpiyrhwqql-W2-xnqi capsule simvastatin 10 mg tablet 10 mg PO QHS 10/29/24 Unknow n History Allergy/AdvReac Type Severity Reaction Status Date / Time No Known Allergies Allergy Verified 06/09/25 16:48 Family History Mother , Passed in 80's No problems noted. Father , 70's Heart disease Myocardial infarction CHF (congestive heart failure) Surgical History History of ankle surgery Social History household members: significant other current occupational status: retired Smoking Status: Never smoker alcohol intake: never caffeine: Yes (On avg 3 cups daily) Type: coffee EXAM Physical Exam Const Vital Signs: 06/09/25 16:47 06/09/25 16:55 Temperature 96.9 F L 96.9 F L Temperature Source Temporal Temporal Pulse Rate 73 73 Respiratory Rate 20 H 20 H Blood Pressure 125/75 H 125/75 H Blood Pressure Mean 91 91 Pulse Ox 99 99 Oxygen Delivery Method Room Air Room Air MDM MDM MDM Narrative Medical decision making narrative: 71-year-old male atraumatic right elbow pain and swelling concern for septic joint versus gout versus other etiologies. No history of trauma. X-ray and labs. Will consult orthopedics. Clean the patient's right elbow off with alcohol swabs and then iodine. I did alateral approach to his elbow and was unable to obtain any fluid. He tolerated it well. He will be given some morphine for pain. I have orthopedics on page. Dr. Pearce of orthopedics came and evaluated the patient. He believes this is secondary to arthritis. He will follow him up in his office. Ice. Motrin for pain and inflammation. Follow-up with Dr. Castillo. Return if increasing pain, redness or fever. History & Record Review Discussion w/independent historian: Patient and Family Lab Data Attestation: I reviewed the patient's lab results. Lab results narrative: CBC shows a white 11.7. H&H 14 and 42. Platelets 257. Electrolytes show gap 12. BUN and creatinine 21 and 1. Uric acid is 4.7. CRP is 3.6 and sed rate is only 11. Right elbow x-ray shows no acute process. Radiography Diagnostic Testing: Right elbow x-ray, 4 views, interpreted by myself and the radiologist shows chronic changes. Arthritis. No fracture. No dislocation. Possible soft tissue swelling with small effusion. Discharge Plan Triage Chief Complaint: Upper Extremity Injury ED Provider: Doroteo Bermudez Dx/Rx/DC Orders Clinical Impression: Elbow pain, History of diabetes mellitus Instructions: ED Arthralgia, ED Osteoarthritis Prescriptions: No Action lisinopril 10 mg tablet 10 mg PO QDAY levothyroxine 88 mcg tablet 88 mcg PO QDAY simvastatin 10 mg tablet 10 mg PO QHS insulin glargine [Lantus Solostar U-100 Insulin] 100 unit/mL (3 mL) insulin pen 35 unit subcut QPM insulin aspart U-100 [Novolog FlexPen U-100 Insulin] 100 unit/mL (3 mL) insulin pen 1 sliding scale dose subcut .COMPLEX Rx Instructions: 1 sliding scale dose subcutaneously 10-20 Units after meals as needed; amino ac-vit K-Pz-wluhypfl-hb9 Tablet See Rx Instructions PO .COMPLEX Rx Instructions: orally Force factor prostate daily; djt-Hdzjow-bkpxw-rlyrg-T2-oewm [id number] mg capsule 1 cap PO QDAY Primary Care Provider: Estrella Arias Referrals: Erick Pearce, DO [Med Staff - Active Staff] - As soon as possible Care Physician,No Primary [Non-Staff] - Activity Restrictions/Additional Instructions: Ice your elbow to decrease pain and swelling. Motrin for pain and swelling and Tylenol. Call and follow-up with the orthopedic physician Dr. Grace to have this reevaluated tomorrow or Tuesday. If it is getting a lot worse increasing pain increasing swelling increasing redness or fever just return to the emergency department. The orthopedic physician believes this is secondary to arthritis. Print Language: [place] Disposition Disposition: Home, Self Care What to do if you have Problems For any increased pain, shortness of breath, bleeding, nausea or vomiting, chestpain, or any unexpected problems, contact your Primary Care Provider. Call [facility] ([phone]) or report to the closest Emergency Room. Call 911 if necessary. 06/09/252053 <Electronically signed by Doroteo Bermudez MD> Cosigner Signature (if applicable): CC: TONO Arias ~ Signed [facility] Work Phone: [phone] 585-921002-20-2025 Telephone encounter Note* Telephone Encounter - Donte Paulino MD - 01/10/2025 3:48 PM EST No worries, can y ou try to get the records from his previous provider Dr. Ferrer regarding the injection protocol they used? That way can guide the amount / protocol we submit for authorization for. Thanks [facility]02-20-2025 Miscellaneous Notes* Telephone Encounter - Donte Paulino MD - 01/10/2025 3:48 PM EST No worries, can y ou try to get the records from his previous provider Dr. Ferrer regarding the injection protocol they used? That way can guide the amount / protocol we submit for authorization for. Thanks * Telephone Encounter - Lisa Reed - 01/09/2025 3:10 PM EST Patient called stating Dr Paulino told him to try propranolol (INDERAL) 10 mg tablet instead of Botox injections in his neck for tremors. Patient states he had a reaction to the medication on day four of taking it. Patient states he had diarrhea and vomiting. Patient states he needs to stick withBotox. documented in [facility]-2025 Telephone encounter Note * Telephone Encounter - Lisa Reed - 01/09/2025 3:10 PM EST Patient called stating Dr Paulino told him to try propranolol (INDERAL) 10 mg tablet instead of Botox injections in his neck for tremors. Patient states he had a reaction to the medication on day four of taking it. Patient states he had diarrhea and vomiting. Patient states he needs to stick withBotox. [facility]02-03-2025 NoteHNO ID: [id number] Author: RISA BARRETT LPN Service: ? Author Type: LICENSED NURSE Type: Progress Notes Filed: 12/24/2024 18:01 Note Text: Per Jose Kerns was provided with powerstep gel inserts, size 11, and instructed/educated in its application, wear, and care. All questions were answered, and patient was able to demonstrate competence with the necessary skills to utilize the above equipment. [facility] History of Present illness Narrative* Risa Barrett LPN - 12/24/2024 3:27 PM EST Per Jose eKrns was provided with powerstep gel inserts, size 11, and instructed/educated in its application, wear, and care. All questions were answered, and patient was able to demonstratecompetence with the necessary skills to utilize the above equipment. Risa Barrett LPN * Hilario Riddle - 12/24/2024 3:19 PM EST Initial Office Visit Subjective: This 79 year [...] week, then 2 pills twice a day fora week, then change to the 60 mg [...] Objective: Patient presents to clinic ambulating in [facility] Constitutional: Pt is a well developed 79 [...] toes when tested with the 5.07 SWM bilateral.Vibratory sensation is decreased at the hallux bilateral. + Significant neurological defecits. Derm: Inspection and palpation performed. Nails 1-5 b/l are normal in length and thickness. Skin isof normal turgor and texture. Hyperkeratosis noted to right 1st metatarsal. NO ulcerations, scars, verruca or other lesions noted. Ortho: Ankle joint DF is full with the knee extended and full with knee flexed. No pain or crepitusnoted. STJ, MTJ ROM are full and free of pain or crepitus. Muscle strength is 5/5 for dorsiflexors,plantarflexors, inverters, everters. Digital deformities include hallux valgus [...] cause him pain. Would recommend wider shoes, onethat accommodate the bunion and perhaps help to [...] arise. Hilario Riddle DPM documented in this encounterMount [facility]02-[facility]-2025 Instructions* Patient Instructions* Hilario Riddle - 12/24/2024 3:24 PM EST Powerstep Original Full length. Can purchase at [facility] [employer] and boots,shoes and more here in [place], [employer] in [place] or [place]. Also can find in [employer] in [facility]. Powersteps can also be purchased online, starting [...] it. Apply a bandage and wear a differentpair of shoes. Take Care of Your Toenails Cut toenails after bathing, when they are soft. Cut toenails straight across and smooth with a nail file. Avoid cutting into the corners of toes. Do not cut cuticles. If you have neuropathy (or decreased sensation in your feet) a sub plant manager should always cut your toenails. Be Careful [...] make sure there are no foreign objects orrough areas. Avoid tight socks. Wear natural-fiber socks [...] Go to your health care provider or sub plant manager to treat these conditions. documented in this encounterMount [facility]02-03-2025 NoteHNO ID: [id number] Author: HILARIO RIDDLE, ? Service: ? Author [...] Objective: Patient presents to clinic ambulating in [facility] Constitutional: Pt is a well developed 79 [...] and written. 3. P (more content not included)...[facility]01-23-2025 Instructions* Patient Instructions* Donte Paulino MD - 12/13/2024 10:55 AM EST Lets try a medicine called propranolol. Its a beta jumana, which can lower heart rate or blood [...] if that gets you benefit. By that timewe should have the Botox records in order to submit for authorization. documented in this encounterMount [facility]01-23-2025 NoteHNO ID: [id number] Author: DONTE PAULINO MD Service: ? Author [...] in the past with Dr. Ferrer in [place], with him got Botox from 2021 until he moved back May 2024, last Botox 05/22/24. Estimates overall he has gotten Botox for around 10-15 years. Dad and all of dad's brothers, in addition to patient's younger brother with head and hand. No alcohol response. Never tried oral medication for it. No sensory trick. Saw Dr. Ramos in [place] who doesn't do injections, suggested oral medications. [...] and got , then moved back to [place] in 1971, in 2020, met a girl in [place] from high school started visiting and decided [...] having a clear po (more content not included)...[facility]01-23-2025 History of Present illness Narrative* Donte Paulino MD - 12/13/2024 10:28 AM EST NEW PATIENT EVALUATION Subjective HPI Jose Enriquez is a 79 year old right-handed male who presents for evaluation of head tremor. EMILIANO Gonzalez is the PCP. Estimates has had tremor for most of his life. At times seems to have affected speech, but has beenmore focused his on head/neck. He has received Botox for this in the past with Dr. Ferrer in [place], with him got Botox from 2021 until he moved back May 2024, last Botox 05/22/24. Estimates overall he has gotten Botox for around 10-15 years. Dad and all of dad's brothers, in addition to patient's younger brother with head and hand. No alcohol response. Never tried oral medication for it. No sensory trick. Saw Dr. Ramos in [place] who doesn't do injections, suggested oral medications. [...] HPI. Otherwise a 10-point ROS was completed andwas negative. ALLERGIES No Known Allergies Past Medical [...] and got , then moved back to [place] in 1971, in 2020, met a girl in [place] from high school started visiting and decided [...] There is no hypomimia. There is no hypoph onia. There is no dysarthria. Tongue is midline. Palate elevates symmetrically. Shoulder shrug is normal. Motor: Muscle bulk is normal. Rapid alternating movements are normal. Muscle power is full. Primary head position is fairly neutral, maybe slight left turn. There is a prominent almost rotaryhead tremor. With head movements in all directions tremor resolves, with head turn either directionslight Y-Y tremor will come out at end. [...] get records from his Botox treatments from [place]. He will let me know in interim how 60 mg is doing and if no benefit or side effects would increase to 120 mg,and submit Botox for next visit. He should return to see me in 3 months. Donte Paulino MD [facility] Neurology documented in this encounterMount Carmel Health SystemConsult note Author Erick Pearce [facility] Note Date/Time June 09, 2025 8:50 pm [facility] Medical Records Department [address] [place] [address] Consultation 06/09/252042 MR#: [id number] Acct: [id number] Name: JOSE ENRIQUEZ Rep #:[id number] : 1945 79 From: Erick Pearce DO PCP: TONO Gonzalez Status:REG ER Location: ED Assessment & Plan Assessment/Plan (1) Degenerative joint disease of elbow, right: (2) Loose body in elbow joint: QUALIFIERS: Laterality: right Qualified Code(s): M24.021 - Loose body in right elbow PLAN: Plan Atraumatic right elbow pain 79-year-old male diabetic no recent infection feverschills malaise, afebrile on admission essentially normal white blood cell count ESR CRP, dry tap aspirate performed by ER physician, no joint effusion on x-ray or physical exam to warrant second aspiration. X-ray does demonstrate significant elbow arthrosis as well as multiple loose bodies which I believe arecausing a block in his motion and causing him to significant pain. Would recommend anti-inflammatory medication for pain control we get an MRI on outpatient basis, we can repeat his labs outpatient as well to make sure there is no trending towards infection but I have low suspicion of this. He will likely need an arthroscopic removal of loose bodies which we can arrange in an outpatient basis. Patient in agreement with plan without any questions. HPI Consult Data Date of Consult: 06/09/25 HPI Narrative HPI Narrative: JOSE ENRIQUEZ, is a 79 M rzerz-lrtw-irasegnx diabetic no recent infections beganhaving elbow pain on the that worsened this morning when he awoke. Denies any fever chills or malaise no trauma. Was consulted by the emergency room for concern for septic elbow. He did have an attempted aspiration by the emergency room physician which proved to be a dry tap he did have x-rays which demonstrated elbow arthrosis and multiple loose bodies no effusion. [facility] Home Medications ?Medication ?Instructions ?Recorded ?Last Taken ?Type amino ac-vit T-Jh-kofqzson-hb9 See Rx Instructions PO .COMPLEX 10/29/24 Unknown History tablet insulin aspart U-100 100 unit/mL 1 sliding scale dose subcut 10/29/24 Unknown History (3 mL) subcutaneous pen (Novolog .COMPLEX FlexPen U-100 Insulin aspart) insulin glargine 100 unit/mL (3 35 unit subcut QPM 08/14 Unknown History mL) subcutaneous pen (Lantus Solostar U-100 Insulin) levothyroxine 88 mcg tablet 88 mcg PO QDAY 10/29/24 Un known History lisinopril 10 mg tablet 10 mg PO QDAY 10/29/24 Unkno wn History saw palmetto 160 1 cap PO QDAY 10/29/24 Unkno wn History gl-Fiwzkv-wrazhexyw-beta pswtpizfey-T3-arpl capsule simvastatin 10 mg tablet 10 mg PO QHS 10/29/24 Unknow n History Allergy/AdvReac Type Severity Reaction Status Date / Time No Known Allergies Allergy Verified 06/09/25 16:48 Family History Mother , Passed in 80's No problems noted. Father , 70's Heart disease Myocardial infarction CHF (congestive heart failure) Surgical History History of ankle surgery Social History household members: significant other current occupational status: retired Smoking Status: Never smoker alcohol intake: never caffeine: Yes (On avg 3 cups daily) Type: coffee Physical Exam Const alert, oriented x3 and no apparent distress General Appearance: cooperative and comfortable Extremity Extremity Narrative: Right elbow there is no erythema there is no significant soft tissue swelling there is no palpable joint effusion he does prefer to hold the elbow at 90 degrees however I can get him to extend to 45 and the flex to 95 he does feel like there is a block in his motion with attempted further active or passive extension this is when his pain comes on the most he does not have significant pain with short arc movement however he does have pain with supination and pronation as well ranging about 45 degrees supination and pronation. He has an intact extensor tendon insect biceps tendon. There is no sign of collateral elbow instability Lab / Micro Data 06/09/25 17:15 06/09/25 17:15 Labs: Laboratory Results - last 24 hr 06/09/25 17:15: WBC 11.7 H, RBC 4.75, Hgb 14.6, Hct 42.7, MCV 89.9, MCH 30.7, MCHC 34.2, RDW Std Deviation 42.3, RDW Coeff of Kanika 12.8, Plt Count 257, MPV 9.5, Immature Gran % (Auto) 0.200, Neut % (Auto) 80.2 H, Lymph % (Auto) 9.6 L, O'Brien % (Auto) 8.3, Eos % (Auto) 1.4, Baso % (Auto) 0.3, Absolute Neuts (auto) 9.4 H, Absolute Lymphs (auto) 1.12, Nucleated RBC % 0, ESR 11, Sodium 135, Potassium 4.4, Chloride 102, Carbon Dioxide 21.7, Anion Gap 12, BUN 21 H, Creatinine 1.03, Estim Creat Clear Calc 69.53, Est GFR (MDRD) Non-Af 74, BUN/Creatinine Ratio 20.5 H, Glucose 202 H, Uric Acid 4.7, Calcium 9.2, C-React Prot Ext Range 3.64 H Imaging Radiology Impression Elbow X-Ray 06/09/25 17:25 IMPRESSION: Limited exam due to patient positioning, without definite displaced fracture. There is a questionable joint effusion with soft tissue swelling. Scattered calcifications may be degenerative or posttraumatic. Consider CT if there is concern for an acute osseous abnormality. Reading Location: [facility] Elbow X-Ray 06/09/25 20:05 IMPRESSION: No displaced fracture. There are scattered calcifications throughout the elbow joint which be posttraumatic or degenerative. Probable small joint effusion with posterior soft tissue swelling. Again consider CT if there is concern for an acute osseous abnormality. Reading Location: [facility] 06/09/252049 <Electronically signed by Erick Pearce DO> Cosigner Signature (if applicable): CC: TONO Arias; Dr. Doroteo Bermudez MD~ Signed [facility] Work Phone: Evaluation note* Diagnosis Essential tremor- Primary Essential and other specified forms of tremor [facility] Diagnosis OPENED IN ERROR- Primary To allow closing an encounter opened in error (used in SmartSet) [facility] Diagnosis Diabetic polyneuropathy associated with type 2 diabetes mellitus (HCC)- Primary Hallux valgus of right foot Callus of foot Corns and callosities documented in this encounter [facility] noteNo assessment information availableWUniversity [facility] Work Phone: Evaluation note* Diagnosis Cervical dystonia- Primary Spasmodic torticollis Tremor Abnormal involuntary movements documented in this encounter [facility] note* Diagnosis Diabetic polyneuropathy associated with type 2 diabetes mellitus (HCC)- Primary Hallux valgus of right foot Hammer toe of right foot Onychomycosis Dermatophytosis of nail Callus of foot Corns and callosities [facility]* Diagnosis Optic nerve atrophy- Primary Optic atrophy, unspecified Visual field defect Visual field defect, unspecified Pseudophakia of both eyes Lens replaced by other means 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 Motrin for pain and swelling and Tylenol. Call and follow-up with the orthopedic physician Dr. Grace to have this reevaluated tomorrow or Tuesday. If it is getting a lot worse increasing pain increasing swelling increasing redness or fever just return to the emergency department. The orthopedic physician believes this is secondary to arthritis.[facility] Work Phone: Hospital Discharge instructionsAmbulatory Orders* Orthopedics Location: None Selected [facility] Work Phone: Reason for referral (narrative)No reason for referral information availableWUniversity [facility]als [facility] Work Phone: Chief Complaint and Reason for Visit Chief Complaint Admit Date OPTIC NERVE ATROPHY OS March 06, 2025 2:24pm UPPER EXT June 09, 2025 4:46 pm UPPER EXT June 09, 2025 8:43 pm Chief Complaint Admit Date OPTIC NERVE ATROPHY OS March 06, 2025 2:24pm UPPER EXT June 09, 2025 4:46 pm UPPER EXT June 09, 2025 8:43 pm RIGHT ELBOW June 10, 2025 1:26 pm Chief Complaint Admit Date UPPER EXT June 09, 2025 4:46 pm UPPER EXT June 09, 2025 8:43 pm RIGHT ELBOW June 10, 2025 1:26 pm RT ELBOW PAIN & SWELLING July 16 1:17pm Reason for Visit Admit Date Degenerative joint disease of elbow, rig ht June 10, 2025 1:26pm Loose body in elbow joint June 10 1:26pm Family History No Family History Records Found Relationship Condition Age at Onset Recorded Date/T cayla father Cardiac disease Unknown Myocardial infarction Unknown Congestive heart failure Unknown Family Member Condition Father Mother Advance Directives No Advanced Directives Records Found Advance Directive Response Recorded Date/ Time Do you have a Healthcare Power of Doctor Chiropractic? No June 09, 2025 4:53pm Summary Purpose Additional Source Comments Source Comments (unrecognize d section and content) In the event this informatio n is protected by the Federal Confidentiality of Alcohol and Drug Abuse Patient Records regulations: The Federal rules restrict any use of the information to criminally investigate or prosecute any alcohol or drug abuse patient.[facility] the event this information is protected by the Federal Confidentiality of Alcohol and Drug Abuse Patient Records regulations: The Federal rules restrict any use of the information to criminally investigate or prosecute any alcohol or drug abuse patient.[facility] System[facility] the event this information is protected by the Federal Confidentiality of Alcohol and Drug Abuse Patient Records regulations: The Federal rules restrict any use of the information to criminally investigate or prosecute any alcohol or drug abuse patient.[facility] System[facility] the event this information is protected by the Federal Confidentiality of Alcohol and Drug Abuse Patient Records regulations: The Federal rules restrict any use of the information to criminally investigate or prosecute any alcohol or drug abuse patient.[facility] SystemIn the event this information is protected by the Federal Confidentiality of Alcohol and Drug Abuse Patient Records regulations: The Federal rules restrict any use of the information to criminally investigate or prosecute any alcohol or drug abuse patient.[facility] SystemIn the event this information is protected by the Federal Confidentiality of Alcohol and Drug Abuse Patient Records regulations: The Federal rules restrict any use of the information to criminally investigate or prosecute any alcohol or drug abuse patient.[facility] SystemIn the event this information is protected by the Federal Confidentiality of Alcohol and Drug Abuse Patient Records regulations: The Federal rules restrict any use of the information to criminally investigate or prosecute any alcohol or drug abuse patient.[facility] SystemIn the event this information is protected by the Federal Confidentiality of Alcohol and Drug Abuse Patient Records regulations: The Federal rules restrict any use of the information to criminally investigate or prosecute any alcohol or drug abuse patient.[facility] Reason for Visit (unrecogniz ed section and content) Reason Comments New Patient Head tremors Reason Comments New Patient Botox for head tremo rs, moved here from [place]. Reason Comments New diabetic foot exam Specialty Diagnoses / Procedures Referred By Guido Referred To Contact Podiatry / PODIATRY Diagnoses New diabetic nail concern Procedures SLIME NEW PODI NAIL CONCERN DIAB Self Hilario Riddle [address] [place] [address] Referral ID Status Reason Start Date Expiration Date V isits Requested Visits Authorized [id number] Pending Review 12/24/2024 03/24/2025 1 1 Reason Comments Medication Problem Reason Comments Discuss Botox Reason Comments Established Patient Reason Comments Optic Atrophy Evaluation Reason Comments Botox Injection Specialty Diagnoses / Procedures Referred By Guido whiting Referred To Contact Neurology / ADULT NEUROLOGY Diagnoses Cervical dystonia Botox NEW Start 300 units every 90 days [id number] Procedures BOTULINUM TOXIN A PER 1 UNIT CHEMODENERVATION MUSCLE NECK UNILAT FOR DYSTONIA Botox NEW Start 300 units every 90 days [id number] NEW Start 300 units every 90 days [id number] Donte Paulino MD [address] [place] [address] Phone: tel: fax: Donte Paulino MD [address] [place] [address] Phone: tel: fax: Referral ID Status Reason Start Date Expiration Date V isits Requested Visits Authorized [id number] Authorized 07/02/2025 11/20/2025 4 Care Teams (unrecognized sec tion and content) Wheat Grower Relationship Specialty Start Date End Date Estrella Arias CRNP [address] [place], [place] [id number] PCP - General Family Medicine 08/28/24 Wheat Grower Relationship Specialty Start Date End Date Estrella Arias CRNP [address] [place], [place] [id number] PCP - General Family Medicine 08/28/24 Wheat Grower Relationship Specialty Start Date End Date Estrella Arias CRNP [address] [place] [id number] PCP - General Family Medicine 08/28/24 Wheat Grower Relationship Specialty Start Date End Date Estrella Arias CRNP [address] [place] [id number] PCP - General Family Medicine 08/28/24 Team Status: Active Member Role/Relationship Status Dates TONO Gonzalez Primary Care Provider Active Team Status: Inactive Member Role/Relationship Status Dates Dr. Angelika Gilman MD Attending Provider Active Start: March 06, 2025 End: March 06, 2025 Dr. Angelika Gilman MD Referring Provider Active Start: March 06, 2025 End: March 06, 2025 No Primary Care Physician Primary Care Provider Active Start: March 06, 2025 End: March 06, 2025 Team Status: Inactive Member Role/Relationship Status Dates Dr. Doroteo Bermudez MD Referring Provider Active S tart: June 09, 2025 End: June 09, 2025 Dr. oDroteo Bermudez MD Emergency Provider Active S tart: June 09, 2025 End: June 09, 2025 Estrella Arias NP-C Primary Care Provider Active Start: June 09, 2025 End: June 09, 2025 Team Status: Active Member Role/Relationship Status Dates Dr. Doroteo Bermudez MD Referring Provider Active S tart: June 09, 2025 Dr. Doroteo Bermudez MD Emergency Provider Active S tart: June 09, 2025 Estrella Arias NP-C Primary Care Provider Active Start: June 09, 2025 Dr. Erick Pearce DO Attending Provider Active Start: June 09, 2025 Team Status: Inactive Member Role/Relationship Status Dates Estrella Arias NP-C Primary Care Provider Active Start: June 10, 2025 End: June 10, 2025 BRAD GonzalezC Referring Provider Active Sta rt: June 10, 2025 End: June 10, 2025 Dr. Erick Pearce DO Attending Provider Active Start: June 10, 2025 End: June 10, 2025 Wheat Grower Relationship Specialty Start Date End Date Estrella Arias CRNP [address] [place] [id number] PCP - General Family Medicine 08/28/24 Wheat Grower Relationship Specialty Start Date End Date Estrella Arisa CRNP [address] [place] [id number] PCP - General Family Medicine 08/28/24 Team Status: Inactive Member Role/Relationship Status Dates Dr. Doroteo Bermudez MD Attending Provider Active S tart: June 09, 2025 End: June 09, 2025 Dr. Doroteo Bermudez MD Referring Provider Active S tart: June 09, 2025 End: June 09, 2025 Dr. Doroteo Bermudez MD Emergency Provider Active S tart: June 09, 2025 End: June 09, 2025 Estrella Arias NP-C Primary Care Provider Active Start: June 09, 2025 End: June 09, 2025 Team Status: Active Member Role/Relationship Status Dates Dr. Doroteo Bermudez MD Referring Provider Active S tart: June 09, 2025 Dr. Doroteo Bermudez MD Emergency Provider Active S tart: June 09, 2025 TONO Gonzalez Primary Care Provider Active Start: June 09, 2025 Dr. Erick Pearce DO Attending Provider Active Start: June 09, 2025 Team Status: Inactive Member Role/Relationship Status Dates TONO Gonzalez Primary Care Provider Active Start: June 10, 2025 End: June 10, 2025 TONO Gonzalez Referring Provider Active Sta rt: June 10, 2025 End: June 10, 2025 Dr. Erick Pearce DO Attending Provider Active Start: June 10, 2025 End: June 10, 2025 Team Status: Inactive Member Role/Relationship Status Dates TONO Gonzalez Primary Care Provider Active Start: July 16, 2025 End: July 16, 2025 Dr. Erick Pearce DO Attending Provider Active Start: July 16, 2025 End: July 16, 2025 Dr. Erick Pearce DO Referring Provider Active Start: July 16, 2025 End: July 16, 2025 Wheat Grower Relationship Specialty Start Date End Date Estrella Arias CRNP [address] [place] [id number] PCP - General Family Medicine 08/28/24 Wheat Grower Relationship Specialty Start Date End Date Estrella Arias CRNP [address] [place] [id number] PCP - General Family Medicine 08/28/24 Goals (unrecognized section and content) Goals may be documented in a n alternate sectionGoals may be documented in an alternate sectionGoals may be documented in an alternate section No Information Available (unrecognized sect ion and content) No Status Records FoundNo Status Records Found INFORMATION SOURCE (unrecogn ized section and content) DATE CREATED AUTHOR 07/27/2025 [facility] DATE CREATED AUTHOR AUTHOR'S ORGANIZ ATION 10/03/2025 [facility] FOR RECORDS PERTAINING TO PATIENTS WHO ARE [...] BE BASED ON THE PRIMARY CLINICAL RECORDS. [facility], [facility]. provides no warranty or guarantee of the accuracy or completeness of information in this document.
--- NOTE | 2025-10-11 22:50 | EGD_PTH ---
PATIENT: JOSE ENRIQUEZ LOC: ED U#:[id number] AGE/SX: 79/M ROOM: RE10/11/[address]: Dr. Ace Bentley DO : 1945 BED: DIS: 10/11/2025 SPEC #: [id number] RECD: 10/11/25 23:41 STATUS: OTILIA ROSEMARIE #: [id number] DEVORA: 10/11/25 22:[address]: Ace Bentley DEPT: SURGICAL PATHOLOGY RECD BY: Winter Montoya Tissues: Esophagus, NOS Procedures: Surgery Specimen Level IV HEADER OPERATION: EGD, foreign body, removal with biopsy PRE-OP DIAGNOSIS: Food bolus TISSUE SUBMITTED: A- Random esophagus biopsy MICROSCOPIC DIAGNOSIS A. Esophagus, random, biopsy: * Benign squamous epithelium with acute and chronic inflammation including increased eosinophils (>50/HPF) with reactive changes MICROSCOPIC DESCRIPTION Slides are reviewed. GROSS DESCRIPTION A. Received in fixative is one container labeled with the patient's name and designated Random esophagus biopsy. The specimen consists of multiple irregular fragments of vazquez tissue that in aggregate measure 0.5 x 0.5 x 0.2 cm. The specimen is totally submitted in one cassette. Audrey 10/14/2025 CPT:46546
--- NOTE | 2025-10-11 22:52 | PRE.ANES_ITS ---
ASA Classification* ASA Classification ASA Classification: 3 and E Assessment & Plan Anesthesia* Anesthesia Assessment Anesthesia Assessment: Discussed sedation and/or anesthesia options, risks, benefits, and alternatives with patient/parents/legal guardian/POA. Questions invited. The patient/parents/legal guardian/POA seems to understand and agrees to proceed with anesthesia plan. Reviewed the physical assessment, medical history, allergy history and patient home medications list prior to surgery/procedure/anesthetic and documented any changes. Performed airway and anesthesia risk assessments. Anesthesia Type Anesthesia Type: General and MAC History Source History Obtained from:: Patient and Chart Anesthesia Focused Assessment* Temperature: 97 F Pulse Rate: 71 Blood Pressure: 119/86 Respiratory Rate: 20 Pulse Ox: 98 Airway Assessment Mouth opens: >3 cm Mallampati Score: II Neck Range of motion (ROM): Limited ROM Labs Anesthesia Preop lab: CBC WBC, (4.4-11.0) 11.7 K/mm3 H 06/09/25, 17:15 RBC, (4.6-6.2) 4.75 M/mm3 06/09/25, 17:15 Hgb, (13.0-16.5) 14.6 g/dL 06/09/25, 17:15 Hct, (40-54) 42.7 % 06/09/25, 17:15 Plt Count, (150-450) 257 K/mm3 06/09/25, 17:15 CHEMISTRY Potassium, (3.3-5.1) 4.4 mmol/L 06/09/25, 17:15 Sodium, (133-145) 135 mmol/L 06/09/25, 17:15 BUN, (4-19) 21 mg/dL H 06/09/25, 17:15 Creatinine, (0.70-1.20) 1.03 mg/dL 06/09/25, 17:15 Glucose, (70-99) 202 mg/dL H 06/09/25, 17:15 COAG Pre-Assessment Diagnosis/Proposed Procedure Planned Operative Procedure(s): EGD for food bolus removal/disimpaction Anesthesia History 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 When Was Last Pacemaker Check QUESTION #4 FULL TEXT: You/Your Family Experience fever (hyperthermia) with Anesthesia Last Oral Intake Last Oral intake: Last Oral Intake NPO since Meds taken in AM with sips of water? Meds patient instructed to take am of surgery PONV PONV - customer service teller: PONV - customer service teller Female HX of Motion Sickness HX of N/V After Surgery Non-Smoker Duration of Surgery greater than 60 minutes Number of Risk Factors PONV Score Height & Weight Height & Weight: Anesthesia: Height & Weight Height 5 ft 8 in 10/11/25 20:28 Weight: 104.825 kg 10/11/25 20:28 Body Mass Index (BMI) 35.1 10/11/25 20:28 Respiratory Assessment Respiratory Assessment - customer service teller: Respiratory Tract Infection Hx - customer service teller Hx Respiratory Tract Infection STOP Sleep Apnea STOP Sleep Apnea - customer service teller: STOP Sleep Apnea - customer service teller Hx Hypertension Hx Sleep Apnea CPAP BIPAP Do you snore loudly (louder than talking or can be heard Do you often feel tired/ fatigued/ sleepy during daytime? Has anyone observed you stop breathing during sleep? STOP Results QUESTION #5 FULL TEXT : Do you snore loudly (louder than talking or can be heard through closed doors)? Tobacco Use History Tobacco Use History - customer service teller: Tobacco Use History - customer service teller Tobacco Use Smoking Status Never smoker 10/11/25 21:47 Hx Tobacco Use Years Smoking Packs Smoked per Day Smoking Cessation Date was within the last 15 years Hx Smoking Cessation Date Hx Smoking Cessation Counseling Hematologic Medial History Hematologic Hx - customer service teller: Hematologic Medical Hx - supervisor baking Hx of Blood Transfusion Hx of Transfusion in last 3 Months Date of Last Transfusion (if within last 3 months) Ever experience any problems with transfusion(s)? Specify any problems Hx of Preganancy in last 3 Months Nurse Filling Out Transfusion & Questions: Date: Time: Patient unable to answer at this time (ie. confused, unrespo /Reproduction History /Reproductive History - customer service teller: /Reproductive Hx- customer service teller Hx Now Gestational Age (in weeks): EDC: Hx Hx Para Hx Section SAB Does the father of the baby or his family experience fever w Father of the baby Malignant Hypertension history comment PFSH Medical History Hypercholesterolemia Diabetes mellitus Home Medications ?Medication ?Instructions ?Recorded ?Last Taken ?Type amino ac-vit [id number] See Rx Instructions PO .COMPLEX 10/29/24 Unknown History tablet insulin aspart U-100 100 unit/mL 1 sliding scale dose subcut 10/29/24 Unknown History (3 mL) subcutaneous pen (Novolog .COMPLEX FlexPen U-100 Insulin aspart) insulin glargine 100 unit/mL (3 35 unit subcut QPM 08/14 Unknown History mL) subcutaneous pen (Lantus Solostar U-100 Insulin) levothyroxine 88 mcg tablet 88 mcg PO QDAY 10/29/24 Un known History lisinopril 10 mg tablet 10 mg PO QDAY 10/29/24 Unkno wn History simvastatin 10 mg tablet 10 mg PO QHS 10/29/24 Unknow n History cetirizine 10 mg capsule (Allergy 10 mg PO QDAY PRN Unknown History Relief (cetirizine)) glucosamine lyvx-wibno-0-vit E 500 cap PO 06/10/25 Unk nown History mg-400 mg-5 unit capsule melatonin 10 mg capsule 10 mg PO HS PRN 06/10/25 Unk nown History Allergy/AdvReac Type Severity Reaction Status Date / Time Environmental Allergies: Allergy Other Verified 10/11/25 20:28 Uncoded (hay fever) Family History Mother , Passed in 80's No problems noted. Father , 70's Heart disease Myocardial infarction CHF (congestive heart failure) Surgical History History of ankle surgery Social History household members: significant other current occupational status: retired Smoking Status: Never smoker alcohol intake: never caffeine: Yes (On avg 3 cups daily) Type: coffee Review of Systems (Anesthesia) ROS Narrative System reviewed and no additional complaints, except as documented.
[2025-10-11 22:53] VITALS: BP 119/86; PULSE 71; RESP 20; TEMP 36.1; O2SAT 98
[2025-10-11 23:19] VITALS: BP 133/72; PULSE 73; RESP 18; TEMP 36.9; O2SAT 98
[2025-10-11] MEDS: Midazolam 2 MG/2 ML Syringe 0.5 MG IV (23:19)
[2025-10-11] MEDS: fentaNYL 100 MCG/2 ML Ampul 50 MCG IV (23:20)
[2025-10-11] MEDS: Lidocaine 1% (5 ml sdv) 5 ML Vial IV (23:23)
--- NOTE | 2025-10-11 23:41 | OP.PROVAT_ITS ---
10/11/2025 Lisa Gonzalez Re : Upper GI endoscopy procedure for Colby Blancocb Flores This procedure was performed on Saturday, October 11, 2025. My impressions and recommendations are as follows: Impressions : - Food in the esophagus. Removal was successful. - LA Grade C erosive esophagitis with no bleeding. - A large amount of food (residue) in the stomach. - No gross lesions in the entire examined duodenum. - Biopsies were taken with a cold forceps for evaluation of eosinophilic esophagitis. Recommendations : - Discharge patient to home. - Full liquid diet for 3 days. - Use Protonix (pantoprazole) 40 mg PO BID indefinitely. - Continue present medications. My findings are described in the full procedure note, which is enclosed. If I can be of further assistance, please feel free to contact me at . Sincerely, Ace Friend, 10/11/2025 11:40:47 PM This report has been signed electronically.
--- NOTE | 2025-10-11 23:41 | OP.EGD_ITS ---
Patient Name: Colby Vidal Procedure Date: 10/11/2025 10:39 PM Date of : 1945 Age: 79 Procedure: Upper GI endoscopy Indications: Foreign body in the esophagus Providers: Ace Bentley DO Medicines: Monitored Anesthesia Care Patient Profile: This is a 79 year old male. Refer to note in patient chart for documentation of history and physical. Patient has symptoms of dysphagia with both liquids and solids. His most recent EGD for foreign body removal. Complications: No immediate complications. Procedure: Pre-Anesthesia Assessment: - Prior to the procedure, a History and Physical was performed, and patient medications and allergies were reviewed. The patient is competent. The risks and benefits of the procedure and the sedation options and risks were discussed with the patient. All questions were answered and informed consent was obtained. Patient identification and proposed procedure were verified by the physician in the pre-procedure area. Mental Status Examination: alert and oriented. Airway Examination: normal oropharyngeal airway and neck mobility. Respiratory Examination: clear to auscultation. CV Examination: normal. Prophylactic Antibiotics: The patient does not require prophylactic antibiotics. Prior Anticoagulants: The patient has taken no anticoagulant or antiplatelet agents. ASA Grade Assessment: II - A patient with mild systemic disease. After reviewing the risks and benefits, the patient was deemed in satisfactory condition to undergo the procedure. The anesthesia plan was to use monitored anesthesia care (MAC). Immediately prior to administration of medications, the patient was re-assessed for adequacy to receive sedatives. The heart rate, respiratory rate, oxygen saturations, blood pressure, adequacy of pulmonary ventilation, and response to care were monitored throughout the procedure. The physical status of the patient was re-assessed after the procedure. After obtaining informed consent, the endoscope was passed under direct vision. Throughout the procedure, the patient's blood pressure, pulse, and oxygen saturations were monitored continuously. The gastroscope was introduced through the mouth, and advanced to the second part of duodenum. The upper GI endoscopy was accomplished without difficulty. The patient tolerated the procedure well. Scope In: 11:29:26 PM Scope Out: 11:36:18 PM Total Procedure Duration Time 0 hours 6 minutes 52 seconds Findings: Food was found in the entire esophagus. Removal was accomplished with a Mathews net. Verification of patient identification for the specimen was done. Estimated blood loss was minimal. LA Grade C (one or more mucosal breaks continuous between tops of 2 or more mucosal folds, less than 75% circumference) esophagitis with no bleeding was found. Biopsies were obtained from the proximal and distal esophagus with cold forceps for histology of suspected eosinophilic esophagitis. A large amount of food (residue) was found in the entire examined stomach. No gross lesions were noted in the entire examined duodenum. Impression: - Food in the esophagus. Removal was successful. - LA Grade C erosive esophagitis with no bleeding. - A large amount of food (residue) in the stomach. - No gross lesions in the entire examined duodenum. - Biopsies were taken with a cold forceps for evaluation of eosinophilic esophagitis. Recommendation: - Discharge patient to home. - Full liquid diet for 3 days. - Use Protonix (pantoprazole) 40 mg PO BID indefinitely. - Continue present medications. Procedure Code(s): --- Professional --- 20650, Esophagogastroduodenoscopy, flexible, transoral; with removal of foreign body(s) 53885, Esophagogastroduodenoscopy, flexible, transoral; with biopsy, single or multiple CPT copyright 2021 [employer]. All rights reserved. The codes documented in this report are preliminary and upon engine mechanic review may be revised to meet current compliance requirements. Ace Bentley DO 10/11/2025 11:40:47 PM This report has been signed electronically. Number of Addenda: 0 Note Initiated On: 10/11/2025 10:39 PM
[2025-10-11 23:53] VITALS: BP 130/73; BP 133/72; PULSE 95; RESP 16; TEMP 36.3; O2SAT 94
[2025-10-11 23:55] VITALS: BP 133/72; BP 139/55; PULSE 84; RESP 16; O2SAT 94
--- NOTE | 2025-10-11 23:55 | PCM.POST.ANE ---
Anesthesia: Postop Eval I Current Vital Signs Temperature: 97.4 F Pulse Rate: 82 Blood Pressure: 130/73 Respiratory Rate: 14 Pulse Ox: 94 Oxygen Delivery Method: Room Air Assessment Airway patent: Yes Spontaneous unlabored respirations: Yes Mental status: Awake and Calm nausea: No Vomiting: No Anesthesia Complication: No Fluid Hydration Crystalloid volume administer (ml): 800 Total IV fluid infused: 800 Progress Note Post-operative progress note: Very comfortable in PACU. Breathing spontaneously and saturating well with clear breath sounds. Stated that he knows where he is at hospital hospital. And just removed the food bolus blockage. Anesthesia document: Postop Eval 1 completed: No
[2025-10-11 23:56] VITALS: BP 130/73; PULSE 82; RESP 14; TEMP 36.3; O2SAT 94
[2025-10-11] MEDS: Pantoprazole Sodium 40 MG in 0.9% Normal Saline (100mL MB+) 100 ML 300 MG IV (23:58)
[2025-10-12] VITALS: BP 125/74; BP 133/72; PULSE 80; RESP 16; O2SAT 93
--- NOTE | 2025-10-12 | PCM.POSTANE2 ---
Anesthesia Postop Eval I Sum Postop Eval Completion status Anesthesia document: Postop Eval 1 completed: No Anesthesia Postop Eval I Summary Anesthesia Postop Eval I Summary: Anesthesia Postop Eval I: Assessment Summary Airway patent Yes 10/11/25 23:56 Spontaneous unlabored Yes 10/11/25 23:56 respirations Mental status Awake,Calm 10/11/25 23:56 nausea No 10/11/25 23:56 Vomiting No 10/11/25 23:56 Anesthesia Postop Eval I: Fluid Summary Crystalloid volume administer 800 10/11/25 23:56 (ml) Colloids volume administered ( ml) Blood Product volume administered (ml) Total IV fluid infused 800 10/11/25 23:56 Anesthesia Postop Eval I: Summary Notes Anesthesia Complication No 10/11/25 23:56 Anesthesia Complication Comment: Post-operative progress note Very comfortable 10/11/25 23:56 in PACU. Breathing spontaneously and saturating well with clear breath sounds. Stated that he knows where he is at hospital hospital. And just removed the food bolus blockage. Anesthesia: Postop Eval II Evaluation Mental status: Awake and Calm Pain Level: 1 nausea: No Vomiting: No Progress Note Post-operative progress note: Comfortably in PACU. Family member at bedside I spoke with anesthesia went well without any complications. Patient is comfortable saturating 97% on room air with good respiratory effort and calm. Complications Anesthesia Complication: No
[2025-10-12 00:05] VITALS: BP 133/72; BP 134/67; PULSE 80; RESP 16; O2SAT 92
[2025-10-12 00:08] VITALS: BP 133/72; BP 136/81; PULSE 80; RESP 16; TEMP 36.3; O2SAT 94
== END 2025-10-11 23:27 | disposition home or self-care (01) ==
PROVIDERS: Emergency Provider Internal Medicine Gastroenterology; PCP Nurse Practitioner; Visit Provider Internal Medicine Gastroenterology
PROC: 0DJ08ZZ Inspection of Upper Intestinal Tract, Via Natural or Artificial Opening Endoscopic (ICD-10-PCS; CPT 43235; principal; 2025-10-11 22:45)
DX: T18.128A Food in esophagus causing other injury, initial encounter (principal); E11.9 Type 2 diabetes mellitus without complications; Z79.4 Long term (current) use of insulin; E78.00 Pure hypercholesterolemia, unspecified; Z79.899 Other long term (current) drug therapy; M54.9 Dorsalgia, unspecified; W44.F3XA Food entering into or through a natural orifice, initial encounter; K22.10 Ulcer of esophagus without bleeding
CPT/HCPCS: 43247; 43239; 88305; 99284; A4216; J1610; J2405